=== PATIENT | male | born 1985 | race Caucasian/White ===

== ENCOUNTER 2024-10-02 11:14 | Day surgery (SDC) | payer MEDICAID, SELFPAY ==
[2024-10-02] VITALS (11 sets, daily range): BP systolic 108–156; BP diastolic 70–95; PULSE 60–90; RESP 14–18; TEMP 36.3–36.5; O2SAT 93–100; BMI 34.2
--- NOTE | 2024-10-02 11:36 | EKG12_ITS ---
Test Reason : PREOP Blood Pressure : */* mmHG Vent. Rate : 56 BPM Atrial Rate : 56 BPM P-R Int : 176 ms QRS Dur : 116 ms QT Int : 430 ms P-R-T Axes : 39 54 51 degrees QTcB Int : 414 ms Sinus bradycardia Otherwise normal ECG No previous ECGs available Confirmed by Cedric Schilling ([id number]), book or script editor ARIES MARTIN ([id number]) on 10/08/2024 8:11:16 AM Referred By: Adriano Mike Confirmed By: Cedric Schilling
[2024-10-02] MEDS: Lactated Ringers 1,000 ML 15 ML IV (12:30)
--- NOTE | 2024-10-02 12:37 | PCM.HP.STD ---
HPI - General HPI Narrative PARIS ZHAO, is a 39 M who presents for left knee anterior cruciate ligament reconstruction quadriceps tendon autograft, medial meniscus repair possible partial meniscectomy. No changes to history and physical exam. Left knee marked. Risks alternatives benefits as well as postoperative instructions and narcotic counseling given. The patient understands no further questions and wishes to proceed. MR#: [id number] Acct: [id number] Name: PARIS ZHAO Rep #: [id number] : 1985 Provider: Dr. Adriano Mike MD Age/Sex: 38/M Location: [facility] [place] Status: Signed Intake Vital Signs 08/26/2513:18 Height 6 ft 3 in Weight: 290 lb BMI 36.2 Intake Visit Reasons: RIGHT KNEE Chief Complaint: Left knee pain Accompanied by: Self Is patient in pain?: Yes Pain scale (1-10): 7 Allergies No Known Allergies Allergy (Unverified 08/26/24 14:21) Medications ?Medication ?Instructions ?Recorded ?Confirmed ?Type NK 08/26/24 08/26/24 History Have you fallen in the past year?: Yes [facility] Medical History (Updated 08/26/24 @ 14:47 by Adriano Mike MD) MCL sprain of left knee Effusion, left knee Tear of medial meniscus of left knee Left ACL tear Left knee pain Right knee pain Family History Mother No problems noted. Father No problems noted. Grandmother No problems noted. Grandfather No problems noted. Social History Smoking Status: Never smoker alcohol intake: never HPI RIGHT KNEE Details: This documentation accurately reflects the service provided and the decisions made by me, Dr. Adriano Mike MD 08/26/24 [id number]. Part of today?s visit was documented by [ ], acting as scribe. PARIS ZHAO is a 38 year old M here today for left knee pain. Referred for meniscus tear. a week-two weeks ago carrying a fish tank twisted the knee. using a brace. not a work injury. 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 up and off the ground, sitting kneeling into cars. feels unstable. swells right away, multiple pops. Supplemental Info Left (report states right though) knee MRI demonstrates complete ACL tear. longitudinal tear in the peripheral one third of the posterior horn of the medial meniscus grade 2-3 sprain MCL. small subchondral fracture medial tibia plateau posteriorly. large joint effusion. Pending the actual report this was taken from [facility]. Review of the MRI scanned into PACS. I independently reviewed the imaging. Concur with radiologist report. Coding Level of Care Code Off vis,new,level 4 Diagnoses Left knee pain M25.562 Left ACL tear S83.512A Tear of medial meniscus of left knee S83.242A Effusion, left knee M25.462 MCL sprain of left knee S83.412A Assessment and Plan Assessment and Plan (1) Left knee pain: Status: Acute Plan: 38-year-old man with an acute left ACL tear and medial meniscus tear. The patient also has a moderate grade sprain of the MCL at the proximal origin these tend to heal well with nonoperative management. That being said I went over the pros and cons risks and benefits of both conservative management nonoperative care versus surgical reconstruction. The patient wished to go ahead with surgery the patient is relatively young with good cartilage as well as physically demanding job. Without surgery the patient would likely have knee instability and high risk for long-term osteoarthritis damage to cartilage and further meniscus tears and injuries. Patient understands wishes to go ahead with surgery in the form of left knee anterior cruciate ligament reconstruction quadriceps tendon autograft, medial meniscus repair possible partial meniscectomy. Specific risks of surgery like repeat tear 5% fractures damage to other intra-articular structures VTE from time on crutches with the brace 6 weeks after surgery and other risks. He understands the risks wishes to proceed signed the form for today we will try to get this on as soon as possible. Full recovery before going back to pivoting and twisting and other very difficult demanding things on the knee would be 9 months. Pros and cons risks and benefits were discussed with the patient including but not limited to infection, pain, stiffness, bleeding, damage to surrounding structures, neurovascular injury, recurrence or retear, failure or wear of hardware or fixation, instability, fracture, deep vein thrombosis and pulmonary embolism, anesthetic risks, , patient dissatisfaction, need for further surgery and other risks. Patient understood and wished to proceed with surgery, and signed the informed consent documentation. (2) Left ACL tear: Status: Acute (3) Tear of medial meniscus of left knee: Status: Acute (4) Effusion, left knee: Status: Acute (5) MCL sprain of left knee: Status: Acute Clinical Quality Measures Falls Risk Screening/Assistive Devices Have you fallen in the past year?: Yes Ortho Exam General General: Yes no acute distress Neurologic: Yes alert and Yes oriented x3 Psychologic: Yes reasonable and appropriate Right Knee Skin/Wound: Yes CDI, No erythema, No ecchymosis and Yes swelling 1+: Effusion Examination: Yes Med jt line tenderness, No Lat jt line tenderness, No TTP inf pole patella, No Crepitus, Yes Pain with flexion, Yes Juan's Test, No TTP Patellar tendon, No TTP Tibial tubercle, No TTP Pes Anserine and No Illiotibial band tenderness Quad Atrophy: No Stability: NML: Posterior Drawer, NML: Valgus 0, NML: Varus 0 and NML: Varus 30, 1+: Frandy and 1+: Valgus 30 and 2+: Anterior Drawer Patella Translation: 2 Apprehension with Lateral Translation: No Patellar Tilt Normal: Yes Patella Grind: No KNEE: NVI, antalgic gait, normal alignment, rom 0-50, refuses further. able to SLR. Left Knee Patella Translation: 2 PFSH Medical History (Updated 09/18/24 @ 10:32 by Niki Guidry) Wears contact lenses Wears glasses Uses crutches Vapes nicotine containing substance Shortness of breath on exertion History of pain when walking History of edema Hx of urethral stricture MCL sprain of left knee Effusion, left knee Tear of medial meniscus of left knee Left ACL tear Left knee pain Right knee pain Home Medications ?Medication ?Instructions ?Recorded ?Last Taken ?Type tirzepatide (weight loss) 5 mg/0.5 5 mg subcut SA 09/18/24 09/25/24 History mL subcutaneous pen injector (Zepbound) Allergy/AdvReac Type Severity Reaction Status Date / Time No Known Allergies Allergy Verified 09/18/24 10:21 Family History Mother No problems noted. Father No problems noted. Grandmother No problems noted. Grandfather No problems noted. Social History Smoking Status: Never smoker alcohol intake: never Vital Signs Vital Signs Vital Signs: 10/02/24 12:15 10/02/24 12:16 Temperature 97.3 F L Temperature Source Temporal Pulse Rate 60 Respiratory Rate 18 Respiratory Pattern Normal Blood Pressure 108/70 Blood Pressure Mean 82 Blood Pressure Source Monitor Blood Pressure Position Semi-Fowlers Blood Pressure Location Right Arm Pulse Ox 100 Oxygen Delivery Method Room Air Weight Weight: 274 lb 6.4 oz Body Mass Index (BMI) 34.2 Results Lab / Micro Data 10/02/24 12:29
--- NOTE | 2024-10-02 12:50 | PCM.PRE.AN2 ---
ASA Classification* ASA Classification ASA Classification: 1 Assessment & Plan Anesthesia* Anesthesia Assessment Anesthesia Assessment: Discussed sedation and/or anesthesia options, risks, benefits, and alternatives with patient/parents/legal guardian/POA. Questions invited. The patient/parents/legal guardian/POA seems to understand and agrees to proceed with anesthesia plan. Reviewed the physical assessment, medical history, allergy history and patient home medications list prior to surgery/procedure/anesthetic and documented any changes. Performed airway and anesthesia risk assessments. Anesthesia Type Anesthesia Type: General and Block (Femoral and Popliteal) History Source History Obtained from:: Patient and Chart Anesthesia Focused Assessment* Temperature: 97.3 F Pulse Rate: 60 Blood Pressure: 108/70 Respiratory Rate: 18 Pulse Ox: 100 Oxygen Delivery Method: Room Air Airway Assessment Mouth opens: >3 cm Mallampati Score: II Teeth Condition: Intact Neck Range of motion (ROM): Full ROM Focused Labs Anesthesia Preop lab: CBC WBC Pending 10/02/24 12:29 10/02/24 RBC Pending 10/02/24 12:29 10/02/24 Hgb Pending 10/02/24 12:29 10/02/24 Hct Pending 10/02/24 12:29 10/02/24 Plt Count Pending 10/02/24 12:29 10/02/24 CHEMISTRY COAG Pre-Assessment Diagnosis/Proposed Procedure Planned Operative Procedure(s): LEFT KNEE ARTHROSCOPY ACL RECONSTRUCTION QUADRICEP TENDON AUTOGRAFT MEDIAL MENISCUS REPAIR POSS PARTIAL MENISECTOMY Anesthesia History 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 When Was Last Pacemaker Check QUESTION #4 FULL TEXT: You/Your Family Experience fever (hyperthermia) with Anesthesia Last Oral Intake Last Oral intake: Last Oral Intake NPO since 07:00 10/02/24 12:16 Meds taken in AM with sips of No 10/02/24 12:16 water? Meds patient instructed to take am of surgery PONV PONV - repair department manager: PONV - repair department manager Female No 09/18/24 10:25 HX of Motion Sickness No 09/18/24 10:25 HX of N/V After Surgery No 09/18/24 10:25 Non-Smoker No 09/18/24 10:25 Duration of Surgery greater Yes 09/18/24 10:25 than 60 minutes Number of Risk Factors 1 09/18/24 10:25 PONV Score Low Risk 09/18/24 10:25 Height & Weight Height & Weight: Anesthesia: Height & Weight Height 6 ft 3 in 10/02/24 12:16 Weight: 124.466 kg 10/02/24 12:16 Body Mass Index (BMI) 34.2 10/02/24 12:16 Respiratory Assessment Respiratory Assessment - repair department manager: Respiratory Tract Infection Hx - repair department manager Hx Respiratory Tract Infection No 09/18/24 10:25 STOP Sleep Apnea STOP Sleep Apnea - repair department manager: STOP Sleep Apnea - repair department manager Hx Hypertension No 09/18/24 10:25 Hx Sleep Apnea No 09/18/24 10:25 CPAP BIPAP Do you snore loudly (louder Yes 09/18/24 10:25 than talking or can be heard Do you often feel tired/ No 09/18/24 10:25 fatigued/ sleepy during daytime? Has anyone observed you stop No 09/18/24 10:25 breathing during sleep? STOP Results Negative 09/18/24 10:25 QUESTION #5 FULL TEXT : Do you snore loudly (louder than talking or can be heard through closed doors)? Tobacco Use History Tobacco Use History - repair department manager: Tobacco Use History - repair department manager Tobacco Use Smoking Status Current every day smoker 09/18/24 10:25 Hx Tobacco Use Yes 09/18/24 10:25 Years Smoking Packs Smoked per Day Smoking Cessation Date was within the last 15 years Hx Smoking Cessation Date Hx Smoking Cessation Counseling Hematologic Medial History Hematologic Hx - repair department manager: Hematologic Medical Hx - event manager Hx of Blood Transfusion No 09/18/24 10:25 Hx of Transfusion in last 3 No 09/18/24 10:25 Months Date of Last Transfusion (if within last 3 months) Ever experience any problems No 09/18/24 10:25 with transfusion(s)? Specify any problems Hx of Preganancy in last 3 N/A 09/18/24 10:25 Months Nurse Filling Out Transfusion DSCHRIBER 09/18/24 10:25 & Questions: Date: 09/18/24 09/18/24 10:25 Time: 10:27 09/18/24 10:25 Patient unable to answer at this time (ie. confused, unrespo /Reproduction History /Reproductive History - repair department manager: /Reproductive Hx- repair department manager Hx Now No 09/18/24 10:25 Gestational Age (in weeks): EDC: Hx Hx Para Hx Section SAB No 09/18/24 10:25 Active Medications Active Medications: Current Medications Generic Name Dose Route Start Last Admin Trade Name Freq PRN Reason Stop Dose Admin Cefazolin Sodium 3 gm/ Sodium 115 mls @ 150 mls/hr 10/02/24 13:20 Chloride IV 10/02/24 14:05 INTRAOP ONE Lactated Ringer's 1,000 mls @ 15 mls/hr 10/02/24 11:45 10/02/24 12:30 IV 15 mls/hr .Q48H MICA Administration PFSH Medical History (Updated 09/18/24 @ 10:32 by Niki Guidry) Wears contact lenses Wears glasses Uses crutches Vapes nicotine containing substance Shortness of breath on exertion History of pain when walking History of edema Hx of urethral stricture MCL sprain of left knee Effusion, left knee Tear of medial meniscus of left knee Left ACL tear Left knee pain Right knee pain Home Medications ?Medication ?Instructions ?Recorded ?Last Taken ?Type tirzepatide (weight loss) 5 mg/0.5 5 mg subcut SA 09/18/24 09/25/24 History mL subcutaneous pen injector (Zepbound) Allergy/AdvReac Type Severity Reaction Status Date / Time No Known Allergies Allergy Verified 09/18/24 10:21 Family History Mother No problems noted. Father No problems noted. Grandmother No problems noted. Grandfather No problems noted. Social History Smoking Status: Never smoker alcohol intake: never Review of Systems (Anesthesia) ROS Narrative System reviewed and no additional complaints, except as documented.
[2024-10-02 12:58] LABS: Hemoglobin 16.6 g/dL (13.0-16.5); Mean Corp Hgb Conc 33.9 g/dL (32-36); Mean Corpuscular Hgb 28.9 pg (27.0-32.0); Mean Corpuscular Volume 85.2 fL (80-94); Mean Platelet Vol. 9.4 fl (6.2-12.0); Platelet Count 211 K/mm3 (150-450); RBC Distribution Width CV 13.2 % (11.6-14.6); RBC Distribution Width SD 41.1 fl (35.1-43.9); Red Blood Count 5.75 M/mm3 (4.6-6.2); White Blood Count 5.4 K/mm3 (4.4-11.0)
[2024-10-02] MEDS: Cefazolin 3 GM in 0.9% Normal Saline (100mL Bag) 100 ML IV (13:28)
[2024-10-02] MEDS: Epinephrine (1 mg/ml) 1 MG/ML VIAL (13:46)
--- NOTE | 2024-10-02 16:02 | OP.PCM_ITS ---
Problems Associated Problem List Diagnoses (1) Tear of medial meniscus of left knee: (2) Left ACL tear: (3) Tear of lateral meniscus of left knee: Procedures Musculoskeletal [id number]: Other Procedure See Report Operative Report (Standard) Operative Information Date of Procedure: 10/02/24 Pre-Operative Diagnosis: Left knee ACL tear and medial meniscus tear Post-Operative Diagnosis: left knee ACL tear medial meniscus tear and lateral meniscus tear Surgery/Procedure Performed: Left knee arthroscopy, quadriceps tendon autograft ACL reconstruction, medial meniscus repair and lateral meniscus repair certified medical dosimetrist: Yes Security Inspector: delia Tasks completed by medical assistant: Retracting Additional assistant infant toddler teacher?: No Type of Anesthesia: Block,Regional and General RN Documented Start/Stop Times: Operation Date: 10/02/24 13:20 Case Time Into Pre-Op 10/02/24 11:35 Anesthesia Start 10/02/24 13:28 Into Room 10/02/24 13:28 Out of Pre-Op 10/02/24 13:28 Procedure Start 10/02/24 13:53 Procedure End 10/02/24 15:55 Procedure Start Time: 13:53 Procedure Stop Time: 15:55 Select all DRAINS/GRAFTS/IMPLANTS that apply: Implanted device Implanted device details: Arthrex 4.75 bio composite swivel lock anchor, fiber stitch implants x 6 Estimated Blood Loss: 50 Specimen collected: No Description of surgery: Patient brought to the operating room theater. Placed supine on the table. 2 g IV Ancef administered prior to the start of the case. General anesthesia induced. All bony prominences padded. SCD on the nonoperative leg. Tourniquet applied to the left thigh appropriately padded. Stress positioner to the left lower extremity. Lower extremity prepped and draped in the usual sterile fashion allowing over 3 minutes drying time prior to draping. Preoperative timeout performed to performed to confirm the site patient the surgery. Examination under anesthetic revealed full range of motion no hyperextension 2+ pivot shift and 2B Frandy. MCL stable. Began by elevating the limb and inflating the tourniquet to 250 mmHg. Use standard anterolateral and anteromedial arthroscopy portals. Did a full diagnostic arthroscopy. Cartilage all 3 compartments was normal, aside from a partial thickness [id number] lesion LFC. Lateral meniscus had small vertical tear near the posterior horn. Used a rasp to stimulate healing. Used 2 arthrex fiber stitch all inside implants vertical mattress to fix the tear. Stable afterwards. Normal roots. Medial meniscus had combined injury vertical tear 1.5cm and another vertical tear along the capsule - a ramp lesion. Used a rasp to stimulate healing. Used 4 fiberstitch all inside implants in vertical mattress fashion to fixate the tear. Stable afterwards. PCL appeared normal. There was an empty lateral wall sign with a full- thickness proximal ACL tear. Removed and debrided the remaining ACL stump. Identified the back wall. Arthroscope was withdrawn. Next I made a transverse incision at the distal quadriceps tendon insertion carried the dissection down through skin and subcutaneous tissue achieved meticulous hemostasis. Identified the vastus medialis stayed lateral to this. I harvested a 7 cm long by 9 mm central strip of the quadriceps tendon staying extra-articular using the Arthrex quad pro harvesting device. I opposed to the 2 sides of the quadriceps using the included arthrex stitch from the kit, fiberwire. Graft taken to the back table. I used the Arthrex all inside with the button system using the fiber tape in the typical fashion with the locking sutures and then buried the stitch on both ends. Fibertape included for internal brace. This measured 9 mm on the femur and 9.5 mm on the tibia. Graft was placed on tension with covered with a wet sponge. I then turned my attention back to the knee arthroscope was then placed. The passport cannula placed in the medial portal. I then drilled a 3 cm long tunnel retrograde low and posterior on the femoral side. Ensured a good backwall. Ensured good lateral cortex still intact - the total length was 5 cm and I drilled retrograde at 9 mm to 3 cm long tunnel. I then performed the same operation on the tibial side with retrograde drilling the total length of the tunnel was 5 cm so I drilled retrograde 3 cm length with 9.5 mm diameter on the tibial side all bone dust was cleared away. I passed the sutures passing sutures through both tunnels and through the passport cannula. I then passed the femoral side sutures with the tape coming back down through the tibial side with the tensioning sutures through the tibial tunnel as well. Button was flipped graft tensioned 2.5 cm into the femoral tunnel button affixed to the tibial tight rope adjustable button loop system and the sutures again tensioned down on both sides sequential tension was performed on both sides. Prior to fixing the tibial button on the tibial side I did 15 cycles of flexion and extension of the knee. Graft was fixated in full extension and ensure no impingement in extension. I did a little bit of lateral notchplasty as well before passing the graft. Graft was stable and solid eliminating the Frandy and pivot shift for full range of motion. I then affixed without tension the internal brace to a Arthrex 4.75 mm swivel lock anchor just distal to the tibial tunnel, ensuring not to over tension the internal brace sutures. Tourniquet let down meticulous hemostasis achieved wound thoroughly irrigated the subcutaneous tissue closed with 2-0 Vicryl suture and skin with 3-0 Monocryl. Skin cleaned with wet dry dressing followed application of Steri- Strips Adaptic 4 x 4 gauze ABD dressing and Matt wrap . Patient woken up from the general anesthetic transferred off the operating table taken postanesthetic care unit in stable condition. All sponge needle instrument counts were correct patient to be on crutches for 2 weeks time follow-up in the office in 2 days and gentle range of motion and partial weightbearing, brace in full extension and crutches. cpt [id number], [id number] Surgical Findings: As above Complications Complications: No Admit VTE Documentation VTE Present on Admission: No VTE Mechan Device Prophylaxis: SCD's VTE Pharm Prophylaxis ordered?: Yes
--- NOTE | 2024-10-02 16:10 | EX.PCM.DISCH ---
Discharge Instructions Diet Discharge Diet: No restrictions Activity Discharge Activity: Use Crutches Ice area for (Minutes): 10 Lifting Restrictions: partial WB with leg straight in brace. Keep extremity elevated above heart level: Operative Extremity Dressing / Incision Call your doctor if your incision/area has: Continuous Slow Oozing, Sudden Increased Bleeding, Increased Pain/ Swelling, Increased Redness, Foul Smelling Discharge and Swelling at the incision site Call your doctor if you observe: Fever of 101 or Higher, Coldness, Increased Pain and Numbness or Tingling Change Dressing in: leave in place till F/U Cleanse incision/area with: Do not get Incision Wet Follow Up Care Please Follow Up With: Adriano Mike MD When: within 2 weeks Test Results: Test results from this visit will be discussed in further detail at your follow-up appointment, if applicable. Discharge Plan Admission Attending Provider: Adriano Mike Primary Care Provider: Care Physician,Radha Primary Instructions Patient Instructions: ACL Injury Surg Print Language: Slovenian Discharge Orders/Prescriptions Prescriptions: New oxycodone-acetaminophen [Endocet] 5-325 mg tablet 1 tab PO Q4H MDD 6 PRN (Reason: pain) 4 Days Qty: 20 0RF aspirin 81 mg capsule 81 mg PO BID MDD 2 30 Days Qty: 60 0RF No Action Zepbound 5 mg/0.5 mL pen injector 5 mg subcut SA Referrals / Follow Up: Adriano Mike MD [Med Staff - Active Staff] - Disposition Disposition (needs filled in before D/C Order can be placed): Home, Self Care
--- NOTE | 2024-10-02 16:14 | PCM.POST.ANE ---
Anesthesia: Postop Eval I Current Vital Signs Temperature: 97.3 F Pulse Rate: 90 Blood Pressure: 119/95 Respiratory Rate: 16 Pulse Ox: 94 Assessment Airway patent: Yes Spontaneous unlabored respirations: Yes nausea: No Vomiting: No Anesthesia Complication: No Fluid Hydration Crystalloid volume administer (ml): 1,200 Total IV fluid infused: 1,200 Progress Note Anesthesia document: Postop Eval 1 completed: Yes
--- NOTE | 2024-10-02 20:46 | POSTOPAN2_ITS ---
Anesthesia Postop Eval I Sum Postop Eval Completion status Anesthesia document: Postop Eval 1 completed: Yes Anesthesia Postop Eval I Summary Anesthesia Postop Eval I Summary: Anesthesia Postop Eval I: Assessment Summary Airway patent Yes 10/02/24 16:14 TELETYPESETTER MONITOR.TNES Spontaneous unlabored Yes 10/02/24 16:14 TELETYPESETTER MONITOR.TNES respirations Mental status nausea No 10/02/24 16:14 TELETYPESETTER MONITOR.TNES Vomiting No 10/02/24 16:14 TELETYPESETTER MONITOR.TNES Anesthesia Postop Eval I: Fluid Summary Crystalloid volume administer 1,200 10/02/24 16:14 TELETYPESETTER MONITOR.TNES (ml) Colloids volume administered ( ml) Blood Product volume administered (ml) Total IV fluid infused 1,200 10/02/24 16:14 TELETYPESETTER MONITOR.TNES Anesthesia Postop Eval I: Summary Notes Anesthesia Complication No 10/02/24 16:14 TELETYPESETTER MONITOR.TNES Anesthesia Complication Comment: Post-operative progress note Anesthesia: Postop Eval II Evaluation Mental status: Awake and Calm Pain Level: 2 nausea: No Vomiting: No Complications Anesthesia Complication: No
--- NOTE | 2024-10-02 20:46 | PCM.POSTANE2 ---
Anesthesia Postop Eval I Sum Postop Eval Completion status Anesthesia document: Postop Eval 1 completed: Yes Anesthesia Postop Eval I Summary Anesthesia Postop Eval I Summary: Anesthesia Postop Eval I: Assessment Summary Airway patent Yes 10/02/24 16:14 [email or web address] Spontaneous unlabored Yes 10/02/24 16:14 [email or web address] respirations Mental status nausea No 10/02/24 16:14 [email or web address] Vomiting No 10/02/24 16:14 [email or web address] Anesthesia Postop Eval I: Fluid Summary Crystalloid volume administer 1,200 10/02/24 16:14 [email or web address] (ml) Colloids volume administered ( ml) Blood Product volume administered (ml) Total IV fluid infused 1,200 10/02/24 16:14 [email or web address] Anesthesia Postop Eval I: Summary Notes Anesthesia Complication No 10/02/24 16:14 [email or web address] Anesthesia Complication Comment: Post-operative progress note Anesthesia: Postop Eval II Evaluation Mental status: Awake and Calm Pain Level: 2 nausea: No Vomiting: No Complications Anesthesia Complication: No
== END 2024-10-02 18:02 | disposition home or self-care (01) ==
LOC: SDC 11:18 → AC 11:21
PROVIDERS: Anesthesiology; Referring Provider Orthopaedic Surgery Sports Medicine; Visit Provider Orthopaedic Surgery Sports Medicine
PROC: (CPT 29888; principal; 2024-10-02 13:00)
DX: S83.242A Other tear of medial meniscus, current injury, left knee, initial encounter (principal); S83.512A Sprain of anterior cruciate ligament of left knee, initial encounter; S83.282A Other tear of lateral meniscus, current injury, left knee, initial encounter; M25.462 Effusion, left knee; X58.XXXA Exposure to other specified factors, initial encounter
CPT/HCPCS: 29888; 29883; 64450; 01400; 85027; 93005; C1713; J2405

== ENCOUNTER → 2025-01-09 | Outpatient (CLI) | payer MEDICAID, SELFPAY ==
--- NOTE | 2025-01-09 15:20 | MRI_ITS ---
PROCEDURE: LOWER EXT JOINT ONLY (ROUTINE) 01/09/2025 REASON FOR EXAM: PRIOR ACL, MM AND LM REPAIR, EVAL REPAIR TECHNIQUE: Procedure Code: MRILEJ Modality: MR Procedure: LOWER EXT JOINT ONLY (ROUTINE) Multiplanar and multisequence images were obtained without IV contrast administration. COMPARISON: COMPARISON : FINDINGS: Postsurgical changes of an ACL repair with an intact graft. A trace amount of fluid surrounds the bone graft plugs in the distal femur and proximal tibia,, potentially representing loosening. Please correlate clinically. The PCL is intact. A horizontal linear signal propagates through the posterior horn of the medial meniscus, which extends to the root (coronal T2 fat suppressed image 24), concerning for a tear. A very small tear reaching the superior articular surface is noted in the posterior horn of the medial meniscus (sagittal proton density images 19 and 20). The lateral meniscus appears intact. Thickening of the MCL, with internal striations of high signal and moderate adjacent fluid signal. This is concerning for a high-grade sprain and possibly partial tearing (grade 2 injury). The LCL complex is intact. The patella appears unremarkable. The medial and lateral patellar retinaculum are intact. The visualized distal quadriceps and patellar tendons appear intact. A very large suprapatellar joint effusion is present. Moderate-sized Villalba's cyst. Chondromalacia and thinning of articular cartilage is noted in the medial and lateral compartments. No MR evidence of a bone contusion. No fracture. Mild subcutaneous edema anterior to the patella and patellar tendon. MRI/Lower Ext Joint Only (Routine) IMPRESSION: 1. Postsurgical changes of an ACL repair with an intact graft. Trace fluid si gnal surrounds the bone graft plugs in the distal femur and proximal tibia, potentially representing loosening. Please correlate clinically. 2. Medial meniscal tears, as described above. 3. Thickening of the MCL with internal striations of high signal and moderate adjacent fluid signal, concerning for a high-grade sprain and possible partial tearing (grade 2 injury). 4. Degenerative changes affecting the articular cartilage in the medial and la teral compartments. 5. Very large suprapatellar joint effusion. Moderate-sized Villalba's cyst. Reading Location: [id number]
--- OUTSIDE RECORDS SUMMARY | 2025-01-09 21:27 | XMS RPT_ITS | CCD ---
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 Interference will decrease T -score by a minimum of 5 points. [place] in home exercise program. Patient will decrease pain rating by 2 points to meet minimal clinical important difference for numeric pain rating scale. Patient will increase active ROM of left knee to 0 to 120 degrees to allow pt to to improve performance of ADLs and to improve gait mechanics / gait pattern . Patient will demonstrate increase in right lower extremity strength to 5/5 during manual muscle testing in order to improve function for prior functional tasks. Normal gait. Reciprocal stair negotiation. Patient Goals: be normal Time Frame for Goals and Treatment : 01/01/25 Planned Interventions, Frequency, and Duration: Current Frequency: 2x/week Duration: 10 weeks Total Number of Visits Planned: 20 Planned Treatment Interventions: Therapeutic exercise (10153), Neuromuscular re-education (43480), Manual therapy (84047), Therapeutic activities (87096), Gait Training (66770), Self-long term management (42884), E-Stim Unattended (88117), E-Stim Attended/TENS (84387), Vasopneumatic Treatment (64298) PLAN FOR NEXT VISIT: HEP review and follow post op protocol Patient demonstrates good understanding of plan of care and treatment. The above goals and plan of care were discussed and agreed upon by patient/family. For further details regarding this patient refer to the Physical Therapy electronically documented visit dated 10/23/2024. Provider Attestation I have reviewed the treatment plan for Paris Ramirez, [facility]# [id number] for the period of 10/23/24 -- 01/01/25, established on 10/23/2024. Signature certifies the need for therapy services. [facility] CNTHERAPYon 10-23-2024 CNTHERAPY OT/PT/Speech Visit (PTMERC) PARIS RAMIREZ ([id number]) 1985 Date Time Provider Department 10/23/24 1:30 PM LUDA DUNBAR PTMERC Date Time Provider Department Center 10/23/2024 1:30 PM [id number], BRITTA*[facility] Reason for Visit: PT Eval [747] Primary Visit Diagnosis:S/P ACL reconstruction [Z98.890] Allergies As of Date: 10/23/2024 (No Known Allergies) Date Reviewed: 08/22/2024 Reviewed by: Dinorah Youngblood ST - Fully Assessed Labelling Machine Operator: Addendum Therapy (PT/OT/Speech/Resp) ID: [id number] 10/23/2024 2:14 PM Author: LUDA DUNBAR Signed by LUDA DUNBAR PT, DPT on 10/23/2024 at 2:14 PM * * * This document replaces document [id number] * * * Document text: Program_ID:[id number] Access Code: [email or web address] URL: [email or web address] Date: 10-23-2024 Prepared By: LUDA DUNBAR Program Notes Exercises - Long Sitting Quad Set - 2 x daily - 7 x weekly - 3 sets - 10 reps - Active Straight Leg Raise with Quad Set - 2 x daily - 7 x weekly - 3 sets - 10 reps - Supine Heel Slide with Strap - 1 x daily - 7 x weekly - 3 sets - 10 reps - Sidelying Hip Abduction - 2 x daily - 7 x weekly - 3 sets - 10 reps - Standing Heel Raises - 2 x daily - 7 x weekly - 3 sets - 10 reps Patient Education - ACL Tear -------- Letter Text Letter Text [facility] THERAPY NTon 10-23-2024 THERAPY NT HNO ID: [id number] Author: LUDA DUNBAR, PT, DPT Service: ? Author Type: Physical Therapist Type: Therapy (PT/OT/Speech/Resp) Filed: 10/23/2024 14:14 Note Text: Program_ID:[id number] Access Code: [email or web address] URL: [email or web address] Date: 10-23-2024 Prepared By: LUDA DUNBAR Program Notes Exercises - Long Sitting Quad Set - 2 x daily - 7 x weekly - 3 sets - 10 reps - Active Straight Leg Raise with Quad Set - 2 x daily - 7 x weekly - 3 sets - 10 reps - Supine Heel Slide with Strap - 1 x daily - 7 x weekly - 3 sets - 10 reps - Sidelying Hip Abduction - 2 x daily - 7 x weekly - 3 sets - 10 reps - Standing Heel Raises - 2 x daily - 7 x weekly - 3 sets - 10 reps Patient Education - ACL Tear [facility] Orthopedic Visit Reporton Orthopedic Visit Report [facility] [address] [place] [address] OFFICE VISIT Date of Service: 10/15/24 MR#: [id number] Acct: [id number] Name: PARIS RAMIREZ Rep #: [id number] : 1985 Provider: Dr. Adriano naranjo MD Age/Sex: 39/M Location: [facility] Status: Signed Intake Vital Signs 08/26/24 14:18 10/02/24 12:16 Height 6 ft 3 in 6 ft 3 in Intake Visit Reasons: left knee Chief Complaint: Left knee pain Is patient in pain?: Yes Allergies No Known Allergies Allergy (Verified 10/15/24 13:05) Medications ???Medication ???Instructions ???Recorded ???Confirmed ???Type tirzepatide (weight loss) 5 mg/0.5 5 mg subcut SA 09/18/24 10/15/24 History mL subcutaneous pen injector (Zepbound) aspirin 81 mg capsule 81 mg PO BID vte 1 month #60 caps 10/02/24 10/15/24 Rx cyclobenzaprine 5 mg tablet 5 - 10 mg (1 - 2 x 5 mg) PO TID 10/15/24 Rx PRN muscle spasm 5 days #20 tabs PFSH Medical History (Updated 10/02/24 @ 16:02 by Adriano Granados MD) Tear of lateral meniscus of left knee Wears contact lenses Wears glasses Uses crutches Vapes nicotine containing substance Shortness of breath on exertion History of pain when walking History of edema Hx of urethral stricture MCL sprain of left knee Effusion, left knee Tear of medial meniscus of left knee Left ACL tear Left knee pain Right knee pain Family History Mother No problems noted. Father No problems noted. Grandmother No problems noted. Grandfather No problems noted. Social History Smoking Status: Never smoker alcohol intake: never HPI left knee Details: This documentation accurately reflects the service provided and the decisions made by me, Dr. Adriano Granados MD 10/15/24 0952. Part of today???s visit was documented by [ ], acting as scribe. PARIS RAMIREZ is a 39 year old M here today for 2 wks FU Left knee arthroscopy, quadriceps tendon autograft ACL reconstruction, medial meniscus repair and lateral meniscus repair. Doing well have t he PT referral faxed today. No concerns. Has weaned off the crutches removed the dressings. No acute concerns. Coding Level of Care Code Global Post Op Diagnoses Tear of lateral meniscus of left knee S83.282A MCL sprain of left knee S83.412A Tear of medial meniscus of left knee S83.242A Left ACL tear S83.512A Left knee pain M25.562 Assessment and Plan Assessment and Plan (1) Tear of lateral meniscus of left knee: Status: Acute Plan: PARIS RAMIREZ is a 39 year old M here today for 2 wks FU Left knee arthroscopy, quadriceps tendon autograft ACL reconstruction, medial meniscus repair and lateral meniscus repair. Doing well we went over the protocol again partial weightbearing in full extension range of motion 0 to 90 degrees passively. Okay to shower over top of the incisions. FU 4 weeks. (2) MCL sprain of left knee: Status: Acute (3) Tear of medial meniscus of left knee: Status: Acute (4) Left ACL tear: Status: Acute (5) Left knee pain: Status: Acute Ortho Exam General General: Yes no acute distress Neurologic: Yes alert and Yes oriented x3 Psychologic: Yes reasonable and appropriate Left Knee Skin/Wound: Yes CDI, No ecchymosis, No erythema and No swelling KNEE: nvi, rom 0-90, intermittent numbness to tips of toes and medial foot non dermatomal and goes away with position 10/15/24 1316 Date Adriano Herrmann Signature: Date (if applicable) CC: Normal [facility] 12 Lead EKContreras 10-02-2024 12 Lead EKG [facility] [address] [place] [address] 12 Lead EKG 10/02/24 1155 MR#: [id number] Acct: [id number] Name: PARIS RAMIREZ Rep #: [id number] : 1985 39 From: Macho Schilling MD Attending Dr: Dr. Adriano Granados MD Status: DE P [facility] Ordering Dr: Wiliam Marie MD Date: 10/02/24 Location: [facility] Sex: M C Admitted: Test Reason : PREOP Blood Pressure : */* mmHG Vent. Rate : 56 BPM Atrial Rate : 56 BPM P-R Int : 176 ms QRS Dur : 116 ms QT Int : 430 ms P-R-T Axes : 39 54 51 degrees QTcB Int : 414 ms Sinus bradycardia Otherwise normal ECG No previous ECGs available Confirmed by Macho Schilling ([id number]), book editor ARIES MARTIN ([id number]) on 10/08/2024 8:11:16 AM Referred By: Adriano Granados Confirmed By: Macho Schilling 10/08/24 0811 Date Macho Schilling MD CC: Dr. Wiliam Marie MD; Dr. Adriano Granados MD; No Primary Care Physician Signed Normal [facility] CBC-Complete Blood Cnt No Di ffon 10-02-2024 Erythrocyte distribution width (RBC) [Ratio] 13.2 % Normal 11.6-14.6 [facility] Comment on above: Performed By: #### L 100.0500 #### [facility] [address] [place], [place], [id number] Hematocrit (Bld) [Volume fraction] 49.0 % Normal 40-54 [facility] Comment on above: Performed By: #### L 100.0500 #### [facility] [address] [place], [place], [id number] Hemoglobin (Bld) [Mass/Vol] 16.6 g/dL High 13.0-16.5 [facility] Comment on above: Performed By: #### L 100.0500 #### [facility] [address] [place], [id number] MCH (RBC) [Entitic mass] 28.9 pg Normal 27.0-32.0 [facility] Comment on above: Performed By: #### L 100.0500 #### [facility] [address] [place], [id number] MCHC (RBC) [Mass/Vol] 33.9 g/dL Normal 32-36 [facility] Comment on above: Performed By: #### L 100.0500 #### [facility] [address] [place], [id number] MCV (RBC) [Entitic vol] 85.2 fL Normal 80-94 [facility] Comment on above: Performed By: #### L 100.0500 #### [facility] [address] [place], [id number] Platelet mean volume (Bld) [Entitic vol] 9.4 fL Normal 6.2-12.0 [facility] Comment on above: Performed By: #### L 100.0500 #### [facility] [address] [place], [id number] Platelets (Bld) [#/Vol] 211 10*3/uL Normal 150-450 [facility] Comment on above: Performed By: #### L 100.0500 #### [facility] [address] [place], [id number] RBC (Bld) [#/Vol] 5.75 10*6/uL Normal 4.6-6.2 [facility] Comment on above: Performed By: #### L 100.0500 #### [facility] [address] [place], [id number] RDW SD 41.1 fl Normal 35.1-43.9 [facility] Comment on above: Performed By: #### L 100.0500 #### [facility] [address] [place], [address] WBC (Bld) [#/Vol] 5.4 10*3/uL Normal 4.4-11.0 [facility] Comment on above: Performed By: #### L 100.0500 #### [facility] [address] [place], [address] Discharge Instructionon 09-06 Discharge Instruction [facility] Medical Records Department [address] [place] [address] Instructions for Home/Discharge Instructions 10/02/24 1610 MR#: [id number] Acct: [id number] Name: PARIS RAMIREZ Rep #: [id number] : 1985 39 From: Adriano Granados MD PCP: Care Physician,No Primary Status:REG [facility] Discharge Instructions Diet Discharge Diet: No restrictions Activity Discharge Activity: Use Crutches Ice area for (Minutes): 10 Lifting Restrictions: partial WB with leg straight in brace. Keep extremity elevated above heart level: Operative Extremity Dressing / Incision Call your doctor if your incision/area has: Continuous Slow Oozing, Sudden Increased Bleeding, Increased Pain/ Swelling, Increased Redness, Foul Smelling Discharge and Swelling at the incision site Call your doctor if you observe: Fever of 101 or Higher, Coldness, Increased Pain and Numbness or Tingling Change Dressing in: leave in place till F/U Cleanse incision/area with: Do not get Incision Wet Follow Up Care Please Follow Up With: Adriano Granados MD When: within 2 weeks Test Results: Test results from this visit will be discussed in further detail at your follow-up appointment, if applicable. Discharge Plan Admission Attending Provider: Adriano Granados Primary Care Provider: Care Physician,No Primary Instructions Patient Instructions: ACL Injury Surg Print Language: Burkinan Discharge Orders/Prescriptions Prescriptions: New oxycodone-acetaminop hen [Endocet] 5-325 mg tablet 1 tab PO Q4H MDD 6 PRN (Reason: pain) 4 Days Qty: 20 0RF aspirin 81 mg capsule 81 mg PO BID MDD 2 30 Days Qty: 60 0RF No Action Zepbound 5 mg/0.5 mL pen injector 5 mg subcut SA Referrals / Follow Up: Adriano Granados MD [Med Staff - Active Staff] - Disposition Disposition (needs filled in before D/C Order can be placed): Home, Self Care 10/02/24 1613 Adriano Granados MD CC: No Primary Care Physician Signed Normal [facility] Erythrocyte distribution wid th ratioOrdered By: [facility] on 10-02-2024 Erythrocyte distribution width (RBC) [Ratio] 13.2 % 11.6-14.6 [facility] Erythrocyte distribution wid th standard deviationOrdered By: [facility] on 10-02-2024 Erythrocyte distribution width (RBC) [Ratio] 41.1 fl 35.1-43.9 [facility] Hematocrit Auto (Bld) [Volum e fraction]Ordered By: [facility] on 10-02-2024 Hematocrit (Bld) [Volume fraction] 49.0 % 40-54 [facility] Hemoglobin measurementOrdere d By: [facility] on 10-02-2024 Hemoglobin (Bld) [Mass/Vol] 16.6 g/dL High 13.0-16.5 [facility] MCV (mean corpuscular volume ) determinationOrdered By: [facility] on 10-02-2024 MCV (RBC) [Entitic vol] 85.2 fL 80-94 [facility] MR/POSTOP.ANEon 10-02-2024 MR/POSTOP.ANE [facility] Medical Records Department [address] [place] [address] Anesthesia Postop Eval I 10/02/24 1614 MR#: [id number] Acct: [id number] Name: PARIS RAMIREZ Rep #: [id number] : 1985 39 From: Mateo Hector CRNA PCP: Care Physician,No Primary Status:REG SDC Y Race: C Location: [place] [address] Anesthesia: Postop Eval I Current Vital Signs Temperature: 97.3 F Pulse Rate: 90 Blood Pressure: 119/95 Respiratory Rate: 16 Pulse Ox: 94 Assessment Airway patent: Yes Spontaneous unlabored respirations: Yes nausea: No Vomiting: No Anesthesia Complication: No Fluid Hydration Crystalloid volume administer (ml): 1,200 Total IV fluid infused: 1,200 Progress Note Anesthesia document: Postop Eval 1 completed: Yes 10/02/24 1615 Date Mateo Irizarrybitt SLAG EXPANDER Cosigner Signature: Date CC: Signed Normal [facility] MR/[id number] 10-02-2024 MR/POSTOPAN2 [facility] Medical Records Department [address] [place] [address] Anesthesia Postop Eval II 10/02/242045 MR#: [id number] Acct: [id number] Name: PARIS RAMIREZ Rep #: [id number] : 1985 39 From: Wiliam Marie MD PCP: Care Physician,No Primary Status:[facility] Y Race: C Location[place] [facility] Anesthesia Postop Eval I Sum Postop Eval Completion status Anesthesia document: Postop Eval 1 completed: Yes Anesthesia Postop Eval I Summary Anesthesia Postop Eval I Summary: Anesthesia Postop Eval I: Assessment Summary Airway patent Yes 10/02/24 16:14 SLAG [email or web address].TNES Spontaneous unlabored Yes 10/02/24 16:14 SLAG EXPANDER.TNES respirations Mental status nausea No 10/02/24 16:14 SLAG EXPANDER.TNES Vomiting No 10/02/24 16:14 SLAG EXPANDER.TNES Anesthesia Postop Eval I: Fluid Summary Crystalloid volume administer 1,200 10/02/24 16:14 SLAG EXPANDER.TNES (ml) Colloids volume administered ( ml) Blood Product volume administered (ml) Total IV fluid infused 1,200 10/02/24 16:14 SLAG [email or web address].TNES Anesthesia Postop Eval I: Summary Notes Anesthesia Complication No 10/02/24 16:14 SLAG [email or web address].TNES Anesthesia Complication Comment: Post-operative progress note Anesthesia: Postop Eval II Evaluation Mental status: Awake and Calm Pain Level: 2 nausea: No Vomiting: No Complications Anesthesia Complication: No 10/02/242046 Date Wiliam Marie MD Cosigner Signature: Date CC: Signed Normal [facility] Mean corpuscular hemoglobin (MCH) determinationOrdered By: Wiliam Marie on 10-02-2024 MCH (RBC) [Entitic mass] 28.9 pg 27.0-32.0 [facility] Mean corpuscular hemoglobin concentration (MCHC) determinationOrdered By: Wiliam Marie on 10-02-2024 MCHC (RBC) [Mass/Vol] 33.9 g/dL 32-36 [facility] Mean platelet volume determi nationOrdered By: Wiliam Marie on 10-02-2024 Platelet mean volume (Bld) [Entitic vol] 9.4 fL 6.2-12.0 [facility] Operative Reporton Operative Report [facility] Medical Records Department [address] [place] [address] Operative Report 10/02/24 1602 MR#: [id number] Acct: [id number] Name: PARIS RAMIREZ Rep #: [id number] : 1985 39 From: Adriano Granados MD PCP: Care Physician,No Primary Status:[facility] Location: [place] [address] Problems Associated Problem List Diagnoses (1) Tear of medial meniscus of left knee: (2) Left ACL tear: (3) Tear of lateral meniscus of left knee: Procedures Musculoskeletal 20xxx-29xxx: Other Procedure See Report Operative Report (Standard) Operative Information Date of Procedure: 10/02/24 Pre-Operative Diagnosis: Left knee ACL tear and medial meniscus tear Post-Operative Diagnosis: left knee ACL tear medial meniscus tear and lateral meniscus tear Surgery/Procedure Performed: Left knee arthroscopy, quadriceps tendon autograft ACL reconstruction, medial meniscus repair and lateral meniscus repair finisher machine: Yes Business Reporting Developer: delia Tasks completed by field assistant: Retracting Additional miller head assistant wet process?: No Type of Anesthesia: Block,Regional and General RN Documented Start/Stop Times: Operation Date: 10/02/24 13:20 Case Time Into Pre-Op 10/02/24 11:35 Anesthesia Start 10/02/24 13:28 Into Room 10/02/24 13:28 Out of Pre-Op 10/02/24 13:28 Procedure Start 10/02/24 13:53 Procedure End 10/02/24 15:55 Procedure Start Time: 13:53 Procedure Stop Time: 15:55 Select all DRAINS/GRAFTS/IMPLAN TS that apply: Implanted device Implanted device details: Arthrex 4.75 bio composite swivel lock anchor, fiber stitch implants x 6 Estimated Blood Loss: 50 Specimen collected: No Description of surgery: Patient brought to the operating room theater. Placed supine on the table. 2 g IV Ancef administered prior to the start of the case. General anesthesia induced. All bony prominences padded. SCD on the nonoperative leg. Tourniquet applied to the left thigh appropriately padded. Stress positioner to the left lower extremity. Lower extremity prepped and draped in the usual sterile fashion allowing over 3 minutes drying time prior to draping. Preoperative timeout performed to performed to confirm the site patient the surgery. Examination under anesthetic revealed full range of motion no hyperextension 2+ pivot shift and 2B Frandy. MCL stable. Began by elevating the limb and inflating the tourniquet to 250 mmHg. Use standard anterolateral and anteromedial arthroscopy portals. Did a full diagnostic arthroscopy. Cartilage all 3 compartments was normal, aside from a partial thickness [id number] lesion LFC. Lateral meniscus had small vertical tear near the posterior horn. Used a rasp to stimulate healing. Used 2 arthrex fiber stitch all inside implants vertical mattress to fix the tear. Stable afterwa rds. Normal roots. Medial meniscus had combined injury vertical tear 1.5cm and another vertical tear along the capsule - a ramp lesion. Used a rasp to stimulate healing. Used 4 fiberstitch all inside implants in vertical mattress fashion to fixate the tear. Stable afterwards. PCL appeared normal. There was an empty lateral wall sign with a full-thickness proximal ACL tear. Removed and debrided the remaining ACL stump. Identified the back wall. Arthroscope was withdrawn. Next I made a transverse incision at the distal quadriceps tendon insertion carried the dissection down through skin and subcutaneous tissue achieved meticulous hemostasis. Identified the vastus medialis stayed lateral to this. I harvested a 7 cm long by 9 mm central strip of the quadriceps tendon staying extra-articular using the Arthrex quad pro harvesting device. I opposed to the 2 sides of the quadriceps using the included arthrex stitch from the kit, fiberwire. Graft taken to the back table. I used the Arthrex all inside with the button system using the fiber tape in the typical fashion with the locking sutures and then buried the stitch on both ends. Fibertape included for internal brace. This measured 9 mm on the femur and 9.5 mm on the tibia. Graft was placed on tension with covered with a wet sponge. I then turned my attention back to the knee arthroscope was then placed. The passport cannula placed in the medial portal. I then drilled a 3 cm long tunnel retrograde low and posterior on the femoral side. Ensured a good backwall. Ensured good lateral cortex still intact - the total length was 5 cm and I drilled retrograde at 9 mm to 3 cm long tunnel. I then performed the same operation on the tibial side with retrograde drilling the total length of the tunnel was 5 cm so I drilled retrograde 3 cm length with 9.5 mm diameter on the tibial side all bone dust was cleared away. I passed the sutures passing sutures through both tunnels and through the passport cannula. I then passed the femoral side sutures with the tape coming back down through t (more content not included)... Normal [facility] Platelet countOrdered By: Jaime on 10-02-2024 Platelets (Bld) [#/Vol] 211 10*3/uL 150-450 [facility] RBC Auto (Bld) [#/Vol]Ordere d By: Wiliam Marie on 10-02-2024 RBC (Bld) [#/Vol] 5.75 10*6/uL 4.6-6.2 [facility] White blood cell (WBC) count Ordered By: Wiliam Marie on 10-02-2024 WBC (Bld) [#/Vol] 5.4 10*3/uL 4.4-11.0 [facility] Orthopedic Visit Reporton Orthopedic Visit Report [facility] [address] [place] [address] OFFICE VISIT Date of Service: 08/26/24 MR#: [id number] Acct: [id number] Name: PARIS RAMIREZ Rep #: [id number] : 1985 Provider: Dr. Adriano naranjo MD Age/Sex: 38/M Location: [facility] Status: Signed Intake Vital Signs 08/26/24 14:18 Height 6 ft 3 in Weight: 290 lb BMI 36.2 Intake Visit Reasons: RIGHT KNEE Chief Complaint: Left knee pain Accompanied by: Self Is patient in pain?: Yes Pain scale (1-10): 7 Allergies No Known Allergies Allergy (Unverified 08/26/24 14:21) Medications ???Medication ???Instructions ???Recorded ???Confirmed ???Type NK 08/26/24 08/26/24 History Have you fallen in the past year?: Yes [facility] Medical History (Updated 08/26/24 @ 14:47 by Adriano Granados MD) MCL sprain of left knee Effusion, left knee Tear of medial meniscus of left knee Left ACL tear Left knee pain Right knee pain Family History Mother No problems noted. Father No problems noted. Grandmother No problems noted. Grandfather No problems noted. Social History Smoking Status: Never smoker alcohol intake: never HPI RIGHT KNEE Details: This documentation accurately reflects the service provided and the decisions made by me, Dr. Adriano Granados MD 08/26/24 9773. Part of today???s visit was documented by [ ], acting as scribe. PARIS RAMIREZ is a 38 year old M here today for left knee pain. Referred for meniscus tear. a week- two weeks ago carrying a fish tank twisted the knee. using a brace. not a work injury. 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 up and off the ground, sitting kneeling into cars. feels unstable. swells right away, multiple pops. Supplemental Info Left (report states right though) knee MRI demonstrates complete ACL tear. longitudinal tear in the peripheral one third of the posterior horn of the medial meniscus grade 2-3 sprain MCL. small subchondral fracture medial tibia plateau posteriorly. large joint effusion. Pending the actual report this was taken from [facility]. Review of the MRI scanned into PACS. I independently reviewed the imaging. Concur with radiologist report. Coding Level of Care Code Off vis,new,level 4 Diagnoses Left knee pain M25.562 Left ACL tear S83.512A Tear of medial meniscus of left knee S83.242A Effusion, left knee M25.462 MCL sprain of left knee S83.412A Assessment and Plan Assessment and Plan (1) Left knee pain: Status: Acute Plan: 38-year-old man with an acute left ACL tear and medial meniscus tear. The patient also has a moderate grade sprain of the MCL at the proximal origin these tend to heal well with nonoperative management. That being said I went over the pros and cons risks and benefits of both conservative management nonoperative care versus surgical reconstruction. The patient wished to go ahead with surgery the patient is relatively young with good cartilage as well as physically demanding job. Without surgery the patient would likely have knee instability and high risk for long-term osteoarthritis damage to cartilage and further meniscus tears and injuries. Patient understands wishes to go ahead with surgery in the form of left knee anterior cruciate ligament reconstruction quadriceps tendon autograft, medial meniscus repair possible partial meniscectomy. Specific risks of surgery like repeat tear 5% fractures damage to other intra-articular structures VTE from time on crutches with the brace 6 weeks after surgery and other risks. He understands the risks wishes to proceed signed the form for today we will try to get this on as soon as possible. Full recovery before going back to pivoting and twisting and other very difficult demanding things on the knee would be 9 months. Pros and cons risks and benefits were discussed with the patient including but not limited to infection, pain, stiffness, bleeding, damage to surrounding structures, neurovascular injury, recurrence or retear, failure or wear of hardware or fixation, instability, fracture, deep vein thrombosis and pulmonary embolism, anesthetic risks, , patient dissatisfaction, need for further surgery and other risks. Patient understood and wished to proceed with surgery, and signed the informed consent documentation. (2) Left ACL tear: Status: Acute (3) Tear of medial meniscus of left knee: Status: Acute (4) Effusion, left knee: Status: Acute (5) MCL sprain of left knee: Status: Acute Clinical Quality Measures Falls Risk Screening/Assistive Devices Have you fallen in the past year?: Yes Ortho Exam General General: Yes no acute distress Alyssa (more content not included)... Normal [facility] CNOVon 08-22-2024 CNOV Office Visit ([facility]) PARIS RAMIREZ ([id number]) 1985 M Date Time Provider Department 08/22/24 1:15 PM SKYE PATHAK [facility] During your visit today, we recorded the following information about you: Pulse Weight Height 74/minute 130.6 kg 1.905 m Skye Pathak APRN.BOTTOMING ROOM SUPERVISOR 08/23/2024 2:46 PM Signed Skye Pathak APRN Orthopedic Sports Medicine Surgery [facility] [place] [address] Orthopedic Surgery Sports Medicine Note NAME: Paris Ramirez : 1985 DATE: 08/13/2024 CHIEF COMPLAINT: left knee pain HPI: Paris Ramirez is a 38 year old male who presents today with acute left knee pain after a crush twisting injury 10 days ago. He recently completed MRI and is here to review results. He continues to experience pain and swelling. Has been trying to work on gentle ROM, but struggles with motion due to swelling and sensation of instability. I have reviewed and updated the patient's past medical history, past surgical history, social history, and family history. This is located both in the patient's note and their intake form that has been scanned into the medical record for today's visit. PAST MEDICAL HISTORY: There is no problem list on file for this patient. CURRENT MEDICATIONS: Current Outpatient Medications Medication Sig ibuprofen (MOTRIN) 800 mg tablet Take 1 tablet by mouth three times a day as needed for pain. No current facility-administere d medications for this visit. ALLERGIES: Patient has no known allergies. SOCIAL HISTORY: Social History Tobacco Use Smoking status: Former Types: Cigarettes Smokeless tobacco: Never Vaping Use Vaping status: current everyday user Substances: Nicotine Substance Use Topics Alcohol use: Not Currently Drug use: Never FAMILY HISTORY: FAMILY HISTORY Problem Relation Age of Onset Dementia Mother Heart disease Mother Breast Cancer Mother Heart disease Father REVIEW OF SYSTEMS: As per HPI.? A 10 point review of systems was performed and was negative. PHYSICAL EXAM: Vital signs: Pulse 74 Ht 190.5 cm (6' 3) Wt 130.6 kg (288 lb) SpO2 97% BMI 36.00 kg/m? Constitutional: Well developed. Well nourished. Psychologic: Mood is appropriate. Appropriate affect. Head and Face: Normocephalic. No obvious deformities. External Ears Normal, no lesions or masses, grossly normal hearing. Eyes: Extraocular movements intact Pulmonary: Unlabored, normal effort. Cardiac: well perfused, extremities pink. Abdomen: Soft, not obese Skin: No rashes on exposed skin surface. Neuro: No focal neuro deficit, normal coordination, normal muscle tone Musculoskeletal: Left knee exam Inspection demonstrates moderate warm effusion with swelling concentrated over his superior patellar pouch. TTP globally over knee. Negative patellar grind. Range of motion limited to 5-90?. No crepitus with range of motion. Able perform some flexion of knee with significant lag of quad tendon. Unable to palpate defect with significant superior swelling. Ligamentous exam stable to varus and valgus stress at 0 and 30? of flexion. Frandy, posterior drawer, and [facility] testing is indeterminate. 2/2 apprehension from knee pain. Warm well perfused lower extremity with capillary refill less than 2 seconds and sensation intact to light touch in terminal nerve distributions. Calf soft and easily compressible without clinical signs of DVT. No palpable popliteal lymphadenopathy IMAGING: * * *Final Report* * * DATE OF EXAM: Aug 15 2024 3:58PM ROM 0212 - MRI KNEE WO IVCON LT / PROCEDURE REASON: multiple diagnoses * * * * Physician Interpretation * * * * EXAMINATION: MRI LEFT KNEE WITHOUT CONTRAST CLINICAL HISTORY: Rupture of anterior cruciate ligament of left knee, initial encounter. Quadriceps tendon rupture, left, initial encounter. Acute lateral meniscus tear of left knee, initial encounter. TECHNIQUE: Routine non-contrast MRI of the knee MQ: MRK_2B COMPARISON: None RESULT: MENISCI: Medial Meniscus: Longitudinal tear in peripheral 1/3 of the meniscus in the posterior horn (7:9). Lateral Meniscus: Intact. LIGAMENTS: ACL: Complete tear PCL: Intact MCL: High-grade partial to complete tear at the condylar attachment with periligamentous edema. LCL Complex: Intact CARTILAGE: Medial Femoral Condyle: Focal chondral defect at the weightbearing surface (7:10). Medial Tibial Plateau: Normal Lateral Femoral Condyle: Normal Lateral Tibial Plateau: Normal Patella: Normal Trochlea: Normal TENDONS: The distal quadriceps and patellar tendons are intact. The popliteus tendon is intact. BONES AND MARROW: Small linear subchondral fracture with surrounding edema noted at the posterior margin of the medial tibial plateau underlying the location of the medial meniscus tear (5:9). MUSCLES: Mild (more content not included)... Normal [facility] 08-16-2024 [facility] ([facility]) PARIS RAMIREZ ([id number]) 1985 M Date Time Provider Department 08/16/24 SKYE PATHAK [facility] During your visit today, we recorded the following information about you: Skye Pathak, COMMERCIAL BAKING TEACHER.[facility] 08/16/2024 2:38 PM Signed Called and spoke with patient MRI results. Explained that at this time he can remain WBAT. No further bracing is needed. He will take the prescribed medrol dose pack and f/u as scheduled. We will reassess at next fu. Allergies As of Date: 08/16/2024 (No Known Allergies) Date Reviewed: 08/13/2024 Reviewed by: Dinorah Youngblood ST - Fully Assessed Reason for Visit: Results [95] Prescriptions as of 08/16/2024 - predniSONE (DELTASONE) 10 mg tablet Take 6 tablets by mouth once daily for 1 day, THEN 5 tablets once daily for 1 day, THEN 4 tablets once daily for 1 day, THEN 3 tablets once daily for 1 day, THEN 2 tablets once daily for 1 day, THEN 1 tablet once daily for 1 day. Take 6 Pills Day 1 Take 5 Pills Day 2 Take 4 Pills Day 3 Take 3 Pills Day 4 Take 2 Pills Day 5 Take 1 Pill Day 6. - ibuprofen (MOTRIN) 800 mg tablet Take 1 tablet by mouth three times a day as needed for pain. Problem List As Of Date: 08/16/2024 (None) Encounter Status:Closed by SKYE PATHAK on 08/16/24 [facility] 08-15-2024 [facility] Telephone ([facility]) PARIS RAMIREZ ([id number]) 1985 M Date Time Provider Department 08/15/24 SKYE PATHAK [facility] During your visit today, we recorded the following information about you: Skye Pathak, COMMERCIAL BAKING TEACHER.[facility] 08/15/2024 1:26 PM Signed Med refill Allergies As of Date: 08/15/2024 (No Known Allergies) Date Reviewed: 08/13/2024 Reviewed by: Dinorah Youngblood ST - Fully Assessed Reason for Visit: Orders [681] Primary Visit Diagnosis:Rupture of anterior cruciate ligament of left knee, initial encounter [S83.512A] Order(s):predniSONE (DELTASONE) 10 mg tabletTake 6 tablets by mouth once daily for 1 day, THEN 5 tablets once daily for 1 day, THEN 4 tablets once daily for 1 day, THEN 3 tablets once daily for 1 day, THEN 2 tablets once daily for 1 day, THEN 1 tablet once daily for 1 day. Take 6 Pills Day 1 Take 5 Pills Day 2 Take 4 Pills Day 3 Take 3 Pills Day 4 Take 2 Pills Day 5 Take 1 Pill Day 6.Disp: 21 tabletRfl: 0 Prescriptions as of 08/15/2024 - predniSONE (DELTASONE) 10 mg tablet Take 6 tablets by mouth once daily for 1 day, THEN 5 tablets once daily for 1 day, THEN 4 tablets once daily for 1 day, THEN 3 tablets once daily for 1 day, THEN 2 tablets once daily for 1 day, THEN 1 tablet once daily for 1 day. Take 6 Pills Day 1 Take 5 Pills Day 2 Take 4 Pills Day 3 Take 3 Pills Day 4 Take 2 Pills Day 5 Take 1 Pill Day 6. - ibuprofen (MOTRIN) 800 mg tablet Take 1 tablet by mouth three times a day as needed for pain. Problem List As Of Date: 08/15/2024 (None) Prescriptions ordered this encounter Disp Refills Start End PREDNISONE 10 MG TABLET 21 t* 0 08/15/2024 08/21/2024 Route: ORAL Sig: Take 6 tablets by mouth once daily for 1 day, THEN 5 tablets once daily for 1 day, THEN 4 tablets once daily for 1 day, THEN 3 tablets once daily for 1 day, THEN 2 tablets once daily for 1 day, THEN 1 tablet once daily for 1 day. Take 6 Pills Day 1 Take 5 Pills Day 2 Take 4 Pills Day 3 Take 3 Pills Day 4 Take 2 Pills Day 5 Take 1 Pill Day 6. Encounter Status:Closed by SKYE PATHAK on 08/15/24 [facility] MR Knee - left WO ashlyon 08-15-2024 IMPRESSION: Complete ACL tear. Longitudinal tear in the peripheral one third of the posterior horn of the medial meniscus. Grade 2-3 sprain of the medial collateral ligament. Small subchondral fracture in the medial tibial plateau posteriorly underlying the location of the meniscus tear. Large joint effusion. Other incidental findings as above. Radiographer Cardiac Catheterization: JOE Transcribe Date/Time: Aug 15 2024 4:15P Dictated by : MACHO MORALES MD This examination was interpreted and the report reviewed and electronically signed by: MACHO MORALES MD on Aug 15 2024 4:26PM [facility] RADIOLOG[facility] * * *Final Report* * * DATE OF EXAM: Aug 15 2024 3:58PM ROM 0212 - MRI KNEE WO IVCON LT / PROCEDURE REASON: multiple diagnoses * * * * Physician Interpretation * * * * EXAMINATION: MRI LEFT KNEE WITHOUT CONTRAST CLINICAL HISTORY: Rupture of anterior cruciate ligament of left knee, initial encounter. Quadriceps tendon rupture, left, initial encounter. Acute lateral meniscus tear of left knee, initial encounter. TECHNIQUE: Routine non-contrast MRI of the knee MQ: MRK_2B COMPARISON: None RESULT: MENISCI: Medial Meniscus: Longitudinal tear in peripheral 1/3 of the meniscus in the posterior horn (7:9). Lateral Meniscus: Intact. LIGAMENTS: ACL: Complete tear PCL: Intact MCL: High-grade partial to complete tear at the condylar attachment with periligamentous edema. LCL Complex: Intact CARTILAGE: Medial Femoral Condyle: Focal chondral defect at the weightbearing surface (7:10). Medial Tibial Plateau: Normal Lateral Femoral Condyle: Normal Lateral Tibial Plateau: Normal Patella: Normal Trochlea: Normal TENDONS: The distal quadriceps and patellar tendons are intact. The popliteus tendon is intact. BONES AND MARROW: Small linear subchondral fracture with surrounding edema noted at the posterior margin of the medial tibial plateau underlying the location of the medial meniscus tear (5:9). MUSCLES: Mild intramuscular edema within the distal biceps femoris and posteriorly within the vastus medialis and vastus lateralis muscles suggestive of mild strain. JOINT FLUID AND SYNOVIUM: Large joint effusion. No Villalba's cyst. OTHER: There is diffuse subcutaneous and popliteal soft tissue edema. Localizer images: No additional findings. [facility] RADIOLOGY Provider, [facility] [place] - 08/15/2024 * * *Final Report* * * DATE OF EXAM: Aug 15 2024 3:58PM ROM 0212 - MRI KNEE WO IVCON LT / PROCEDURE REASON: multiple diagnoses * * * * Physician Interpretation * * * * EXAMINATION: MRI LEFT KNEE WITHOUT CONTRAST CLINICAL HISTORY: Rupture of anterior cruciate ligament of left knee, initial encounter. Quadriceps tendon rupture, left, initial encounter. Acute lateral meniscus tear of left knee, initial encounter. TECHNIQUE: Routine non-contrast MRI of the knee MQ: MRK_2B COMPARISON: None RESULT: MENISCI: Medial Meniscus: Longitudinal tear in peripheral 1/3 of the meniscus in the posterior horn (7:9). Lateral Meniscus: Intact. LIGAMENTS: ACL: Complete tear PCL: Intact MCL: High-grade partial to complete tear at the condylar attachment with periligamentous edema. LCL Complex: Intact CARTILAGE: Medial Femoral Condyle: Focal chondral defect at the weightbearing surface (7:10). Medial Tibial Plateau: Normal Lateral Femoral Condyle: Normal Lateral Tibial Plateau: Normal Patella: Normal Trochlea: Normal TENDONS: The distal quadriceps and patellar tendons are intact. The popliteus tendon is intact. BONES AND MARROW: Small linear subchondral fracture with surrounding edema noted at the posterior margin of the medial tibial plateau underlying the location of the medial meniscus tear (5:9). MUSCLES: Mild intramuscular edema within the distal biceps femoris and posteriorly within the vastus medialis and vastus lateralis muscles suggestive of mild strain. JOINT FLUID AND SYNOVIUM: Large joint effusion. No Villalba's cyst. OTHER: There is diffuse subcutaneous and popliteal soft tissue edema. Localizer images: No additional findings. IMPRESSION IMPRESSION: Complete ACL tear. Longitudinal tear in the peripheral one third of the posterior horn of the medial meniscus. Grade 2-3 sprain of the medial collateral ligament. Small subchondral fracture in the medial tibial plateau posteriorly underlying the location of the meniscus tear. Large joint effusion. Other incidental findings as above. Radiographer Cardiac Catheterization: JOE Transcribe Date/Time: Aug 15 2024 4:15P Dictated by : MACHO MORALES MD This examination was interpreted and the report reviewed and electronically signed by: MACHO MORALES MD on Aug 15 2024 4:26PM EST [facility] Radiology Study observation (narrative) [facility] MR Knee - left WO contrastOr dered By: [facility] Provider on 08-15-2024 [facility] MRI KNEE WO IVCON LTon 08-15 MRI KNEE WO IVCON LT * * *Final Report* * * DATE OF EXAM: Aug 15 2024 3:58PM ROM 0212 - MRI KNEE WO IVCON LT / PROCEDURE REASON: multiple diagnoses * * * * Physician Interpretation * * * * EXAMINATION: MRI LEFT KNEE WITHOUT CONTRAST CLINICAL HISTORY: Rupture of anterior cruciate ligament of left knee, initial encounter. Quadriceps tendon rupture, left, initial encounter. Acute lateral meniscus tear of left knee, initial encounter. TECHNIQUE: Routine non-contrast MRI of the knee MQ: MRK_2B COMPARISON: None RESULT: MENISCI: Medial Meniscus: Longitudinal tear in peripheral 1/3 of the meniscus in the posterior horn (7:9). Lateral Meniscus: Intact. LIGAMENTS: ACL: Complete tear PCL: Intact MCL: High-grade partial to complete tear at the condylar attachment with periligamentous edema. LCL Complex: Intact CARTILAGE: Medial Femoral Condyle: Focal chondral defect at the weightbearing surface (7:10). Medial Tibial Plateau: Normal Lateral Femoral Condyle: Normal Lateral Tibial Plateau: Normal Patella: Normal Trochlea: Normal TENDONS: The distal quadriceps and patellar tendons are intact. The popliteus tendon is intact. BONES AND MARROW: Small linear subchondral fracture with surrounding edema noted at the posterior margin of the medial tibial plateau underlying the location of the medial meniscus tear (5:9). MUSCLES: Mild intramuscular edema within the distal biceps femoris and posteriorly within the vastus medialis and vastus lateralis muscles suggestive of mild strain. JOINT FLUID AND SYNOVIUM: Large joint effusion. No Villalba's cyst. OTHER: There is diffuse subcutaneous and popliteal soft tissue edema. Localizer images: No additional findings. IMPRESSION: Complete ACL tear. Longitudinal tear in the peripheral one third of the posterior horn of the medial meniscus. Grade 2-3 sprain of the medial collateral ligament. Small subchondral fracture in the medial tibial plateau posteriorly underlying the location of the meniscus tear. Large joint effusion. Other incidental findings as above. Radiographer Cardiac Catheterization[facility] Transcribe Date/Time: Aug 15 2024 4:15P Dictated by : MACHO MORALES MD This examination was interpreted and the report reviewed and electronically signed by: MACHO MORALES MD on Aug 15 2024 4:26PM EST [id number] [facility] CNOVon 08-13-2024 [facility] PARIS RAMIREZ ([id number]) 1985 M Date Time Provider Department 08/13/24 11:30 AM SKYE PATHAK [facility] During your visit today, we recorded the following information about you: Pulse Weight Height 61/minute 132 kg 1.905 m Skye Pathak APRN.BOTTOMING ROOM SUPERVISOR 08/13/2024 12:08 PM Signed Skye Pathak APRN Orthopedic Sports Medicine Surgery [address] [place] [address] [address], [place] [address] Orthopedic Surgery Sports Medicine Note NAME: Paris Ramirez : 1985 DATE: 08/13/2024 CHIEF COMPLAINT: left knee pain HPI: Paris Ramirez is a 38 year old male who presents today with acute left knee pain after a crush twisting injury 3 days ago. 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 He felt immediate painful popping. Had difficulty ambulating afterwards so presented to urgent care where x-ray of knee revealed no acute fracture or mal-alignment. He was placed in a knee immobilizer presents today for further evaluation. He continues to have pain and swelling, worst over the entire knee. He has minimal motion. Denies any numbness. I have reviewed and updated the patient's past medical history, past surgical history, social history, and family history. This is located both in the patient's note and their intake form that has been scanned into the medical record for today's visit. PAST MEDICAL HISTORY: There is no problem list on file for this patient. CURRENT MEDICATIONS: Current Outpatient Medications Medication Sig ibuprofen (MOTRIN) 800 mg tablet Take 1 tablet by mouth three times a day as needed for pain. No current facility-administere d medications for this visit. ALLERGIES: Patient has no known allergies. SOCIAL HISTORY: Social History Tobacco Use Smoking status: Former Types: Cigarettes Smokeless tobacco: Never Vaping Use Vaping status: current everyday user Substances: Nicotine Substance Use Topics Alcohol use: Not Currently Drug use: Never FAMILY HISTORY: FAMILY HISTORY Problem Relation Age of Onset Dementia Mother Heart disease Mother Breast Cancer Mother Heart disease Father REVIEW OF SYSTEMS: As per HPI.? A 10 point review of systems was performed and was negative. PHYSICAL EXAM: Vital signs: Pulse 61 Ht 190.5 cm (6' 3) Wt 132 kg (291 lb) SpO2 94% BMI 36.37 kg/m? Constitutional: Well developed. Well nourished. Psychologic: Mood is appropriate. Appropriate affect. Head and Face: Normocephalic. No obvious deformities. External Ears Normal, no lesions or masses, grossly normal hearing. Eyes: Extraocular movements intact Pulmonary: Unlabored, normal effort. Cardiac: well perfused, extremities pink. Abdomen: Soft, not obese Skin: No rashes on exposed skin surface. Neuro: No focal neuro deficit, normal coordination, normal muscle tone Musculoskeletal: Left knee exam Inspection demonstrates moderate warm effusion with swelling concentrated over his superior patellar pouch. TTP globally over knee. Negative patellar grind. Range of motion limited to 5-90?. No crepitus with range of motion. Able perform some flexion of knee with significant lag of quad tendon. Unable to palpate defect with significant superior swelling. Ligamentous exam stable to varus and valgus stress at 0 and 30? of flexion. Frandy, posterior drawer, and [facility] testing is indeterminate. 2/2 apprehension from knee pain. Warm well perfused lower extremity with capillary refill less than 2 seconds and sensation intact to light touch in terminal nerve distributions. Calf soft and easily compressible without clinical signs of DVT. No palpable popliteal lymphadenopathy IMAGING: * * *Final Report* * * DATE OF EXAM: Aug 11 2024 9:00PM RNX [id number] - XR KNEE 4V AP/LAT/OBLS LT / PROCEDURE REASON: Acute pain of left knee * * * * Physician Interpretation * * * * XR KNEE 4V AP/LAT/OBLS LT Ordering Physician: BATOOL BUTLER 08/11/2024 9:00 PM LEFT KNEE Clinical Statement: Injury with pain FINDINGS: 5 images of the left knee were obtained. There were no prior studies available for comparison. The osseous structures are intact. No acute fractures are identified. The joint spaces are maintained. There is mild anterior soft tissue swelling. There is a small joint effusion. ASSESSMENT/ PLAN: 38 year old male seen today internal derangement of left knee Significant concern for soft tissue injury with possible meniscal vs ACL vs. Quad tendon rupture. I recommend that patient maintain knee immobilizer while up ambulating. Do not recommend flexion past 45 degrees with when sitting. Ok to WBAT with leg in full extension. We will plan for stat MRI. F/u once completed. Allergies As of Date: 08/13/2024 (No Known Allergies) Date Reviewed: (more content not included)... Normal [facility] 08-12-2024 [facility] Telephone ([facility]) PARIS RAMIREZ ([id number]) 1985 M Date Time Provider Department 08/12/24 BATOOL BUTLER [facility] During your visit today, we recorded the following information about you: Tarah Rowell LPN 08/12/2024 8:51 AM Signed Patient called and stated that he was here last night 08-11-24 for a knee injury. When he called the ortho given its a month out to be seen, he called other orthos and they are still the same. What should he do? DAVID Zavala Oliver Labrador, MD 08/12/2024 9:57 AM Signed My recommendation is for the patient to call [facility] so he can be scheduled with other orthopedics in the [facility] system. Thank you. Tarah Rowell LPN 08/13/2024 1:08 PM Signed Called patient,he stated he was seen today at [facility] and got his MRI scheduled. Tarah Rowell LPN Allergies As of Date: 08/12/2024 (No Known Allergies) Date Reviewed: 05/17/2024 Reviewed by: Sasha Barreto LPN - Fully Assessed Reason for Visit: Patient Question [6359] Cmt: Unable to get in ortho office Prescriptions as of 08/13/2024 - ibuprofen (MOTRIN) 800 mg tablet Take 1 tablet by mouth three times a day as needed for pain. Problem List As Of Date: 08/12/2024 (None) Encounter Status:Closed by HIPOLITO ALEXANDER on 08/12/24 [facility] Ruth 08-11-2024 CNOV Office Visit (UCMNCA) PARIS RAMIREZ ([id number]) 1985 M Date Time Provider Department 08/11/24 8:30 PM BATOOL BUTLER [facility] During your visit today, we recorded the following information about you: Temperature Pulse Respiration Blood pressure 98.3 degrees 63/minute 16/minute 127/84 Weight 145.2 kg Batool Butler MD 08/11/2024 9:01 PM Signed [facility] Subjective Paris Ramirez is a 38 year old male. Patient presents with: Fall: Patient stated that he had a fall tonight and landed on left knee and LLE went sideways. Patient heard a pop 38-year-old male patient presented here plaint left knee pain. Patient fell landed on his left knee went sideways since then the knee is hurting and swelling no other complaint. Review of Systems Musculoskeletal: Positive for arthralgias, joint swelling and myalgias. All other systems reviewed and are negative. Objective BP 127/84 Pulse 63 Temp 36.8 ?C (98.3 ?F) Resp 16 Wt (!) 145.2 kg (320 lb) SpO2 96% BMI 40.00 kg/m? Physical Exam Vitals and nursing note reviewed. Constitutional: Appearance: Normal appearance. Cardiovascular: Rate and Rhythm: Normal rate and regular rhythm. Pulses: Normal pulses. Heart sounds: Normal heart sounds. Pulmonary: Effort: Pulmonary effort is normal. Breath sounds: Normal breath sounds. Musculoskeletal: Comments: Examination of the left knee there is an abrasion some minimal swelling limited range of motion due to pain, flexion extension of the knee is limited due to pain. Anterior posterior drawer signs could not be performed due to limited range of motion. Neurological: Mental Status: He is alert. {ASSESSMENT/PLAN: 1. Acute pain of left knee - ICD9: 719.46, ICD10: M25.562 Discussed with patient treatments and plan I immobilized his knee gave him crutches refer him to an orthopedic - XR KNEE INJURY 4V AP/LAT/OBLS LEFT - KNEE IMMOBILIZER - CRUTCHES Batool Butler MD Management I performed an independent interpretation of the following:imaging Imaging: My interpretation is Soft tissue swelling no acute fracture Procedures Referring Provider: SELF [[id number]] Allergies As of Date: 08/11/2024 (No Known Allergies) Date Reviewed: 05/17/2024 Reviewed by: Sasha Barreto LPN - Fully Assessed Reason for Visit: Fall [218] Cmt: Patient stated that he had a fall tonight and landed on left knee and LLE went sideways. Patient heard a pop Primary Visit Diagnosis:Acute pain of left knee [M25.562] Order(s):XR KNEE INJURY 4V AP/LAT/OBLS LEFT [[id number]] Order #: [id number] FUTURE KNEE IMMOBILIZER [[id number]] Order #: [id number] CRUTCHES [[id number]] Order #: [id number] ibuprofen (MOTRIN) 800 mg tabletTake 1 tablet by mouth three times a day as needed for pain.Disp: 30 tabletRfl: 0 Prescriptions as of 08/11/2024 - ibuprofen (MOTRIN) 800 mg tablet Take 1 tablet by mouth three times a day as needed for pain. - ciprofloxacin HCl (CIPRO) 500 mg tablet Take 1 tablet by mouth every 12 hours. - oxybutynin (DITROPAN) 5 mg tablet Take 1 tablet by mouth two times a day. - iv contrast (will be provided with radiology test) CT Urogram WO/W Inject, intravenously, once for 1 dose.No IV access, insert saline lock prior to the beginning of sedation, infusion, injection of imaging exam. Discontinue saline lock post exam. If Pt. has a central line or IVAD, may access for administration according to line specific nursing protocol. Once exam is complete flush line and de-access according to line specific nursing protocol in the CT contrast administration guidelines link. Problem List As Of Date: 08/11/2024 (None) Prescriptions ordered this encounter Disp Refills Start End IBUPROFEN 800 MG TABLET 30 t* 0 08/11/2024 09/10/2024 Route: ORAL Sig: Take 1 tablet by mouth three times a day as needed for pain. Encounter Status:Closed by BATOOL BUTLER on 08/11/24 [facility] XR KNEE 4V AP/LAT/OBLS LTon 08-11-2024 XR KNEE 4V AP/LAT/OBLS LT * * *Final Report* * * DATE OF EXAM: Aug 11 2024 9:00PM RNX [id number] - XR KNEE 4V AP/LAT/OBLS LT / PROCEDURE REASON: Acute pain of left knee * * * * Physician Interpretation * * * * XR KNEE 4V AP/LAT/OBLS LT Ordering Physician: BATOOL BUTLER 08/11/2024 9:00 PM LEFT KNEE Clinical Statement: Injury with pain FINDINGS: 5 images of the left knee were obtained. There were no prior studies available for comparison. The osseous structures are intact. No acute fractures are identified. The joint spaces are maintained. There is mild anterior soft tissue swelling. There is a small joint effusion. IMPRESSION: Mild soft tissue swelling and a small joint effusion. No acute osseous abnormalities. Radiographer Cardiac Catheterization: PSCB Transcribe Date/Time: Aug 12 2024 7:51A Dictated by : VERONICA SORTO MD This examination was interpreted and the report reviewed and electronically signed by: VERONICA SORTO MD on Aug 12 2024 7:54AM EST [id number] [facility] CNOVon 07-05-2024 [facility] Office Visit (UCMNCA) PARIS RAMIREZ ([id number]) 1985 M Date Time Provider Department 07/05/24 4:25 PM BATOOL BUTLER [facility] During your visit today, we recorded the following information about you: Temperature Pulse Respiration Blood pressure 98.4 degrees 62/minute 14/minute 121/84 Weight 145.2 kg Batool Butler MD 07/05/2024 5:03 PM Signed Paris Ramirez is a 38 year old male who presents with Other (Pimple like sore - Entered by patient) and Pain (Patient stated that he has an area on corpus spongiosum. ) 38-year-old male patient presented here had a painful lesion on his foreskin. Patient was here couple weeks ago was treated with antibiotics cleared up and now came back patient is seen a urologist and they could not see the lesion after he had been treated. No fevers no other complaint No past medical history on file. There is no problem list on file for this patient. Current Outpatient Medications Medication Sig Dispense Refill cephALEXin (KEFLEX) 500 mg capsule Take 1 capsule by mouth three times a day for 10 days. 30 capsule 0 sulfamethoxazole-tri methoprim (BACTRIM DS) 800-160 mg per tablet Take 1 tablet by mouth two times a day for 10 days. 20 tablet 0 ciprofloxacin HCl (CIPRO) 500 mg tablet Take 1 tablet by mouth every 12 hours. (Patient not taking: Reported on 07/05/2024) oxybutynin (DITROPAN) 5 mg tablet Take 1 tablet by mouth two times a day. (Patient not taking: Reported on 07/05/2024) 90 tablet 3 iv contrast (will be provided with radiology test) CT Urogram WO/W Inject, intravenously, once for 1 dose.No IV access, insert saline lock prior to the beginning of sedation, infusion, injection of imaging exam. Discontinue saline lock post exam. If Pt. has a central line or IVAD, may access for administration according to line specific nursing protocol. Once exam is complete flush line and de-access according to line specific nursing protocol in the CT contrast administration guidelines link. (Patient not taking: Reported on 07/05/2024) 1 Each 0 No current facility-administere d medications for this visit. Social History Tobacco Use Smoking status: Former Types: Cigarettes Smokeless tobacco: Never Vaping Use Vaping status: current everyday user Substances: Nicotine Substance Use Topics Alcohol use: Not Currently Drug use: Never Alcohol Use: Not Currently Tobacco Use: Types: Cigarettes FAMILY HISTORY Problem Relation Age of Onset Dementia Mother Heart disease Mother Breast Cancer Mother Heart disease Father Review of Systems All other systems reviewed and are negative. BP 121/84 Pulse 62 Temp (Src) 98.4 (Temporal) Resp 14 Wt 320 lb (145.2kg) SpO2 95% Physical Exam Vitals and nursing note reviewed. Constitutional: Appearance: Normal appearance. Cardiovascular: Rate and Rhythm: Normal rate and regular rhythm. Pulses: Normal pulses. Heart sounds: Normal heart sounds. Pulmonary: Effort: Pulmonary effort is normal. Breath sounds: Normal breath sounds. Genitourinary: Comments: Painful swollen lesion on the lateral side of the foreskin. No drainage Neurological: Mental Status: He is alert. Procedures ASSESSMENT/PLAN: 1. Infected skin lesion - ICD9: 686.9, ICD10: L08.9 Place patient on Keflex 500 mg p.o. 3 times daily, Bactrim DS 1 tab twice a day have him follow-up with his urologist treatments and plans to discussed Batool Butler Allergies As of Date: 07/05/2024 (No Known Allergies) Date Reviewed: 05/17/2024 Reviewed by: Sasha Barreto LPN - Fully Assessed Reason for Visit: Other [0] Cmt: Pimple like sore - Entered by patient Pain [78] Cmt: Patient stated that he has an area on corpus spongiosum. Primary Visit Diagnosis:Infected skin lesion [L08.9] Order(s):cephALEXin (KEFLEX) 500 mg capsuleTake 1 capsule by mouth three times a day for 10 days.Disp: 30 capsuleRfl: 0 sulfamethoxazole-tri methoprim (BACTRIM DS) 800-160 mg per tabletTake 1 tablet by mouth two times a day for 10 days.Disp: 20 tabletRfl: 0 Prescriptions as of 07/05/2024 - cephALEXin (KEFLEX) 500 mg capsule Take 1 capsule by mouth three times a day for 10 days. - sulfamethoxazole-tri methoprim (BACTRIM DS) 800-160 mg per tablet Take 1 tablet by mouth two times a day for 10 days. - ciprofloxacin HCl (CIPRO) 500 mg tablet Take 1 tablet by mouth every 12 hours. - oxybutynin (DITROPAN) 5 mg tablet Take 1 tablet by mouth two times a day. - iv contrast (will be provided with radiology test) CT Urogram WO/W Inject, intravenously, once for 1 dose.No IV access, insert saline lock prior to the beginning of sedation, infusion, injection of imaging exam. Discontinue saline lock post exam. If Pt. has a central line or IVAD, may access for administration according to line specific nursing protocol. Once exam is complete flush line and de-access according to (more content not included)... [facility] Tevin 05-24-2024 SHWETHA Telephone (UROALL) PAR[place] RAMIREZ ([id number]) 1985 M Date Time Provider Department 05/24/24 JENN ELIZALDE During your visit today, we recorded the following information about you: Allergies As of Date: 05/24/2024 (No Known Allergies) Date Reviewed: 05/17/2024 Reviewed by: Sasha Barreto LPN - Fully Assessed Reason for Visit: Appointment [186] Cmt: LEFT PATIENT MESSAGE TO CALL AND R/S MISSED POST OP APPOINTMENT Prescriptions as of 05/24/2024 - ciprofloxacin HCl (CIPRO) 500 mg tablet Take 1 tablet by mouth every 12 hours. - oxybutynin (DITROPAN) 5 mg tablet Take 1 tablet by mouth two times a day. - iv contrast (will be provided with radiology test) CT Urogram WO/W Inject, intravenously, once for 1 dose.No IV access, insert saline lock prior to the beginning of sedation, infusion, injection of imaging exam. Discontinue saline lock post exam. If Pt. has a central line or IVAD, may access for administration according to line specific nursing protocol. Once exam is complete flush line and de-access according to line specific nursing protocol in the CT contrast administration guidelines link. Problem List As Of Date: 05/24/2024 (None) Encounter Status:Closed by TAVARES SALVADOR on 05/24/24 [facility] CNDemarcus 05-17-2024 CNOV Office Visit (DUTCH) [place] RAMIREZ ([id number]) 1985 M Date Time Provider Department 05/17/24 11:30 AM JENN ELIZALDE During your visit today, we recorded the following information about you: Jenn Elizalde MD 05/17/2024 12:02 PM Signed [place] Ramirez is a 38 year old male who presents with Follow-up his catheter fell out today. He did not pull it out or just fell out something it was defective. We put another 18 and he bled fairly good when it fell out he is also getting bladder spasm we will give him some Ditropan Review of Systems- Reviewed and otherwise non-contributory. There were no vitals taken for this visit. History reviewed. No pertinent past medical history. PAST SURGICAL HISTORY Procedure Laterality Date PENIS SURGERY HX uretheral work when he was 11 Current Outpatient Medications Medication Sig Dispense Refill oxyCODONE-acetaminop hen (PERCOCET) 5-325 mg tablet TAKE 1 TABLET BY MOUTH EVERY 6 HOURS FOR 7 DAYS NEEDED FOR PAIN ciprofloxacin HCl (CIPRO) 500 mg tablet Take 1 tablet by mouth every 12 hours. iv contrast (will be provided with radiology test) CT Urogram WO/W Inject, intravenously, once for 1 dose.No IV access, insert saline lock prior to the beginning of sedation, infusion, injection of imaging exam. Discontinue saline lock post exam. If Pt. has a central line or IVAD, may access for administration according to line specific nursing protocol. Once exam is complete flush line and de-access according to line specific nursing protocol in the CT contrast administration guidelines link. 1 Each 0 No current facility-administere d medications for this visit. (R31.29) Microscopic hematuria (primary encounter diagnosis) Plan week ic and dc jamia Elizalde MD This note was generated with voice recognition software and may contain errors, including spelling, grammar, syntax and misrecognition of what was dictated, that are not fully corrected. Sasha Barreto LPN 05/17/2024 12:02 PM Signed Sánchez catheter placement done today with # 18 Fr catheter. Inserted without complication using sterile technique. Clear yellow urine noted in tubing. No c/o at this time. Sasha Barreto LPN Referring Provider: JENN ELIZALDE [[id number]] Allergies As of Date: 05/17/2024 (No Known Allergies) Date Reviewed: 05/17/2024 Reviewed by: Sasha Barreto LPN - Fully Assessed Reason for Visit: Follow Up [171] Cmt: Catheter came out Primary Visit Diagnosis:Microscopi c hematuria [R31.29] Order(s):oxybutynin (DITROPAN) 5 mg tabletTake 1 tablet by mouth two times a day.Disp: 90 tabletRfl: 3 Prescriptions as of 05/17/2024 - oxyCODONE-acetaminop hen (PERCOCET) 5-325 mg tablet TAKE 1 TABLET BY MOUTH EVERY 6 HOURS FOR 7 DAYS NEEDED FOR PAIN - ciprofloxacin HCl (CIPRO) 500 mg tablet Take 1 tablet by mouth every 12 hours. - oxybutynin (DITROPAN) 5 mg tablet Take 1 tablet by mouth two times a day. - iv contrast (will be provided with radiology test) CT Urogram WO/W Inject, intravenously, once for 1 dose.No IV access, insert saline lock prior to the beginning of sedation, infusion, injection of imaging exam. Discontinue saline lock post exam. If Pt. has a central line or IVAD, may access for administration according to line specific nursing protocol. Once exam is complete flush line and de-access according to line specific nursing protocol in the CT contrast administration guidelines link. Problem List As Of Date: 05/17/2024 (None) Prescriptions ordered this encounter Disp Refills Start End OXYBUTYNIN CHLORIDE 5 MG TABLET 90 t* 3 05/17/2024 Route: ORAL Sig: Take 1 tablet by mouth two times a day. Encounter Status:Closed by JENN ELIZALDE on 05/17/24 [facility] Tevin 05-14-2024 SHWETHA Telephone (DUTCH) [place] RAMIREZ ([id number]) 1985 M Date Time Provider Department 05/14/24 JENN ELIZALDE During your visit today, we recorded the following information about you: ImmanuelTete colunga 05/14/2024 3:38 PM Signed Needs post op/sánchez out in 10 days Allergies As of Date: 05/14/2024 (No Known Allergies) Date Reviewed: 04/11/2024 Reviewed by: Liliana Pearson LPN - Fully Assessed Reason for Visit: Appointment [186] Cmt: Needs post op/sánchez out in 10 days Prescriptions as of 05/14/2024 - iv contrast (will be provided with radiology test) CT Urogram WO/W Inject, intravenously, once for 1 dose.No IV access, insert saline lock prior to the beginning of sedation, infusion, injection of imaging exam. Discontinue saline lock post exam. If Pt. has a central line or IVAD, may access for administration according to line specific nursing protocol. Once exam is complete flush line and de-access according to line specific nursing protocol in the CT contrast administration guidelines link. Problem List As Of Date: 05/14/2024 (None) Encounter Status:Closed by TETE DOAN on 05/14/24 [facility] CNOVon 04-22-2024 CNOV Office Visit (UROALL) [place] RAMIREZ ([id number]) 1985 M Date Time Provider Department 04/22/24 9:45 AM JENN ELIZALDE During your visit today, we recorded the following information about you: Weight Height 145.2 kg 1.905 m Vonnie Harris LPN 04/22/2024 10:01 AM Signed Peak Flow rate 12.6 Voided 54ML Pvr 0ml Jenn Elizalde MD 04/22/2024 10:01 AM Signed [place] Ramirez is a 38 year old male who presents with Follow-up of his bad cystitis. That urethral stricture we did a flow today he empties totally his flow is actually not too bad is 12.6 and he only voided 54 just really not too bad I think you are still going to set him up for a VIU at some point we talked about intermittent cath after and a catheter for 10 days. Will look at his CT urogram right now it looks normal I do not have the report Review of Systems- Reviewed and otherwise non-contributory. Ht 190.5 cm (6' 3) Wt (!) 145.2 kg (320 lb) BMI 40.00 kg/m? No past medical history on file. PAST SURGICAL HISTORY Procedure Laterality Date PENIS SURGERY HX uretheral work when he was 11 Current Outpatient Medications Medication Sig Dispense Refill ciprofloxacin HCl (CIPRO) 500 mg tablet Take 1 tablet by mouth two times a day for 14 days. 28 tablet 0 iv contrast (will be provided with radiology test) CT Urogram WO/W Inject, intravenously, once for 1 dose.No IV access, insert saline lock prior to the beginning of sedation, infusion, injection of imaging exam. Discontinue saline lock post exam. If Pt. has a central line or IVAD, may access for administration according to line specific nursing protocol. Once exam is complete flush line and de-access according to line specific nursing protocol in the CT contrast administration guidelines link. 1 Each 0 No current facility-administere d medications for this visit. (N48.1) Balanitis (primary encounter diagnosis) Plan VIU Jenn Elizalde MD This note was generated with voice recognition software and may contain errors, including spelling, grammar, syntax and misrecognition of what was dictated, that are not fully corrected. Referring Provider: JENN ELIZALDE [[id number]] Allergies As of Date: 04/22/2024 (No Known Allergies) Date Reviewed: 04/11/2024 Reviewed by: Liliana Pearson LPN - Fully Assessed Reason for Visit: Follow Up [171] Primary Visit Diagnosis:Balanitis [N48.1] Order(s):BLADDER SCAN [[id number]] Order #: [id number] FLOW RATE [[id number]] Order #: [id number] Prescriptions as of 04/22/2024 - ciprofloxacin HCl (CIPRO) 500 mg tablet Take 1 tablet by mouth two times a day for 14 days. - iv contrast (will be provided with radiology test) CT Urogram WO/W Inject, intravenously, once for 1 dose.No IV access, insert saline lock prior to the beginning of sedation, infusion, injection of imaging exam. Discontinue saline lock post exam. If Pt. has a central line or IVAD, may access for administration according to line specific nursing protocol. Once exam is complete flush line and de-access according to line specific nursing protocol in the CT contrast administration guidelines link. Problem List As Of Date: 04/22/2024 (None) Disposition: Return for VIU may. Follow-up and Disposition History for Encounter Date Provider Department Center 04/22/2024 [id number] ELIZALDE [facility] Encounter Status:Closed by JENN ELIZALDE on 04/22/24 Normal [facility] CT UROGRAM WO/W IVCONon 12 CT UROGRAM WO/W IVCON * * *Final Report* * * DATE OF EXAM: Apr 19 2024 6:34PM [facility] 0560 - CT UROGRAM WO/W IVCON / PROCEDURE REASON: Microscopic hematuria * * * * Physician Interpretation * * * * EXAMINATION: CT ABDOMEN AND PELVIS WITHOUT AND WITH IV CONTRAST, INCLUDING EXCRETORY PHASE IMAGING (CT UROGRAM) 3D RECONSTRUCTIONS CLINICAL HISTORY: Microscopic hematuria. TECHNIQUE: CT urogram protocol including unenhanced, combined renal parenchymal phase and excretory phase (split bolus) renal imaging was obtained following IV contrast. Normal saline was also administered IV. No oral contrast was given. 3D image post-processing was performed and archived at the request of the referring physician, on the CT scanner workstation without concurrent physician supervision. MQ: CTU_2 Contrast: IV: 150 ml of Omnipaque 350 Oral Contrast: None CT Radiation dose: Integrated dose-length product (DLP) for this visit = 2228.63 mGy*cm. CT Dose Reduction Employed: Automated exposure control(AEC) and iterative recon COMPARISON: None. RESULT: Kidneys and urinary tract: Right: No nephrolithiasis or hydronephrosis. Normal enhancement of the renal parenchyma. No suspicious renal mass. Good contrast excretion. No upper tract urothelial lesion. Left: No nephrolithiasis or hydronephrosis. Normal enhancement of the renal parenchyma. A cyst within the lower pole measures 0.8 cm. No suspicious renal mass. Good contrast excretion. No upper tract urothelial lesion. Bladder: No filling defect, calculus, focal or diffuse wall thickening. Abdomen and Pelvis: Liver: Normal liver morphology. No suspicious hepatic mass. Biliary: No bile duct dilation. Gallbladder is unremarkable. Spleen: No mass. No splenomegaly. Pancreas: No mass or duct dilation. Adrenals: No mass. GI tract: The bowel is normal in caliber and without evidence of wall thickening or obstruction. The appendix is normal. There are sigmoid colonic diverticula, without associated inflammation. Lymph nodes: No abdominal or pelvic lymphadenopathy. Mesentery/Peritoneum : No ascites or mass. Retroperitoneum: No mass. Vasculature: - Abdominal aorta and iliac arteries: No aneurysm. - Celiac and SMA: Patent without stenosis. - Portal venous system (SMV, splenic vein, portal vein and branches): Patent. - Hepatic veins: Patent. Pelvis: No mass, ascites or fluid collection. Bones and Soft Tissues: No destructive lytic or blastic osseous abnormality. Lower thorax: Mild bibasilar juxtapleural subsegmental atelectasis. Localizer images: No additional findings. IMPRESSION: 1. No findings to account for symptoms of hematuria. Specifically, no nephrolithiasis, suspicious renal mass or upper tract urothelial lesion. 2. No acute abnormality. Radiographer Cardiac Catheterization: JOE Transcribe Date/Time: Apr 24 2024 11:19A Dictated by : ERIN OGLESBY MD This examination was interpreted and the report reviewed and electronically signed by: ERIN OGLESBY MD on Apr 24 2024 12:43PM EST [id number] CN Normal [facility] PSA SerPl-mCncon 04-13-2024 Prostate specific Ag [Mass/Vol] 0.40 ng/mL Normal <2.60 [facility] Comment on above: Order Comment: Speci men Type: BLOOD SPECIMENOrdering Facility: [facility] Address: [address] [place] [address] Result Comment: This is a new methodology for this marker. Tumor markers obtained from different assay methods cannot be used interchangeably. Expect results of this assay to run lower than the previous assay. It is recommended to re-baseline patients when changing to a new methodology. Performed By: #### 2 857-1 ####[facility] LABORATORYCLIA [id number] [place] [address] [place] Bacteria Ur Culton 4 Bacteria identified Cx Nom (U) ORGANISM ID: 1 >=100,000 CFU/ml Escherichia coli ORGANISM ID: 1 (ESCHERICHIA COLI) ANTIBIOTIC INTERPRETATION DONNA STATUS REFERENCE RANGE Ampicillin S <=4 F Susceptible <=8 , Intermediate >8 , Resistant >16 Cefazolin S <=1 F Susceptible 0-16 , Intermediate <0 or >16 , Resistant >16 For uncomplicated urinary tract infections, cefazolin results can be used to predict susceptibility or resistance to cephalexin. Ceftriaxone S <=1 F Susceptible <=1 , Intermediate >1 , Resistant >=4 Cefepime S <=1 F Susceptible <=2 , Susceptible-Dose Dependent >2 , Resistant >=16 Ertapenem S <=0.25 F Susceptible <=0.5 , Intermediate >.5 , Resistant >1 Meropenem S <=0.5 F Susceptible <=1 , Intermediate >1 , Resistant >2 Amoxicillin Clav S <=4 F Ampicillin/Sulbact S 2 F Piperacillin/Tazobac S <=2 F Gentamicin S <=2 F Susceptible <=2 , Intermediate >2 , Resistant >=8 Trimeth sulfameth S <=0.5 F Ciprofloxacin S <=0.25 F Susceptible <0.5 , Intermediate >=.5 , Resistant >=1 Nitrofurantoin S <=16 F Susceptible <=32 , Intermediate >32 , Resistant >64 Abnormal [facility] Comment on above: Performed By: #### 6 30-4 ####[facility] LABORATORYCLIA [id number] [place] [address] [place] CNOVon 04-11-2024 CNOV Office Visit (UROALL) PARIS RAMIREZ ([id number]) 1985 M Date Time Provider Department 04/11/24 3:00 PM JENN ELIZALDE During your visit today, we recorded the following information about you: Weight Height 136.1 kg 1.905 m Liliana Pearson LPN 04/11/2024 3:03 PM Signed Chief Knowledge Officer present: Jenn Elizalde MD 04/11/2024 3:45 PM Signed CYSTOSCOPY PROCEDURE NOTE: Paris Ramirez is a 38 year old male who presents with follow-up of his gross hematuria and blood clots. He passed some more today had a miserable night a lot of frequency and urgency and exact start to get chills so we brought him in at the end of the day and did a flexible cystoscope he does have a proximal urethral stricture look like I could see the little scars I think he might be a third 1 and there but he knew he had a surgery when he was a kid and there is some scar there. I just wonder if this is what aggravated everything prostate looks pretty normal his bladder is diffusely red area where he has been taken some Pyridium so I did irrigate him a few times forgets it well but is completely red I do not think there is any bladder cancer there. I also did a renal ultrasound kidneys are about 10 cm and look pretty normal we still want to do the CT urogram though I think the answer is good to be pretty bad prostatitis/cystitis probably aggravated by that scar Pt ID verified with patient: Yes Procedure verified with patient: Yes Procedure confirmed with physician and it support engineer: Yes UNIVERSAL PROTOCOL / SAFETY CHECKLIST Procedure to be Performed: cystoscopy Sign In: A Moment of CARE was completed. Personnel directly involved with the procedure wore the appropriate PPE (Personal Protective Equipment). Patient/Surrogate Stated/Verified: PATIENT VERIFIED: Patient name, Date of , Relevant allergies, and The intended procedure Time Out Communication: Intended patient and procedure match the source documents. Consent documented and matches the intended procedure. Sign Out: SIGN OUT: All specimen containers correctly labeled. A urinalysis was performed revealing no evidence of infection. The benefits, risks, alternatives of the cystoscopy procedure and personnel were discussed with the patient. The verbal consent was obtained and the patient agrees to proceed. Procedure: The patient was placed on the procedure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 SUPERVISOR Work Phone: [facility] 08-11-2024 20:40-0400 Body mass index (BMI) [Ratio] 40 kg/m2 Batool Butler MD Work Phone: [facility] 08-11-2024 20:40-0400 Body temperature 98.29 [degF] Batool Butler MD Work Phone: [facility] 08-11-2024 20:40-0400 Body weight 145.15 kg Batool Butler MD Work Phone: [facility] 08-11-2024 20:40-0400 Diastolic blood pressure 84 mm[Hg] Batool Butler MD Work Phone: [facility] 08-11-2024 20:40-0400 Heart rate 63 /min Batool Butler MD Work Phone: [facility] 08-11-2024 20:40-0400 Respiratory rate 16 /min Batool Butler MD Work Phone: [facility] 08-11-2024 20:40-0400 SaO2% (BldA) [Mass fraction] 96 % Batool Butler MD Work Phone: [facility] 08-11-2024 20:40-0400 Systolic blood pressure 127 mm[Hg] Batool Butler MD Work Phone: [facility] 07-05-2024 16:30-0500 Body mass index (BMI) [Ratio] 40 kg/m2 Batool Butler MD Work Phone: [facility] 07-05-2024 16:30-0500 Body temperature 98.4 [degF] Batool Butler MD Work Phone: [facility] 07-05-2024 16:30-0500 Body weight 145.15 kg Batool Butler MD Work Phone: [facility] 07-05-2024 16:30-0500 Diastolic blood pressure 84 mm[Hg] Batool Butler MD Work Phone: [facility] 07-05-2024 16:30-0500 Heart rate 62 /min Batool Butler MD Work Phone: [facility] 07-05-2024 16:30-0500 Respiratory rate 14 /min Batool Butler MD Work Phone: [facility] 07-05-2024 16:30-0500 SaO2% (BldA) [Mass fraction] 95 % Batool Butler MD Work Phone: [facility] 07-05-2024 16:30-0500 Systolic blood pressure 121 mm[Hg] Batool Butler MD Work Phone: [facility] 04-22-2024 09:41-0500 Body height 190.5 cm Jenn Elizalde MD Work Phone: [facility] 04-22-2024 09:41-0500 Body mass index (BMI) [Ratio] 40 kg/m2 Jenn Elizalde MD Work Phone: [facility] 04-22-2024 09:41-0500 Body weight 145.15 kg Jenn Elizalde MD Work Phone: [facility] 04-11-2024 15:01-0500 Body height 190.5 cm Jenn Eilzalde MD Work Phone: [facility] 04-11-2024 15:01-0500 Body mass index (BMI) [Ratio] 37.5 kg/m2 Jenn Elizalde MD Work Phone: [facility] 04-11-2024 15:01-0500 Body weight 136.08 kg Jenn Elizalde MD Work Phone: [facility] 02-08-2024 13:19-0400 Body temperature 98.1 [degF] Batool Butler MD Work Phone: [facility] 02-08-2024 13:19-0400 Diastolic blood pressure 86 mm[Hg] Batool Butler MD Work Phone: [facility] 02-08-2024 13:19-0400 Heart rate 91 /min Batool Butler MD Work Phone: [facility] 02-08-2024 13:19-0400 Respiratory rate 18 /min Batool Butler MD Work Phone: [facility] 02-08-2024 13:19-0400 SaO2% (BldA) [Mass fraction] 95 % Batool Butler MD Work Phone: [facility] 02-08-2024 13:19-0400 Systolic blood pressure 138 mm[Hg] Batool Butler MD Work Phone: [facility] 06-21-2022 08:59-0500 Body temperature 98.6 [degF] Batool Butler MD Work Phone: [facility] 06-21-2022 08:59-0500 Body weight 145.15 kg Batool Butler MD Work Phone: [facility] 06-21-2022 08:59-0500 Diastolic blood pressure 87 mm[Hg] Batool Butler MD Work Phone: [facility] 06-21-2022 08:59-0500 Heart rate 74 /min Batool Butler MD Work Phone: [facility] 06-21-2022 08:59-0500 Respiratory rate 16 /min Batool Butler MD Work Phone: [facility] 06-21-2022 08:59-0500 SaO2% (BldA) [Mass fraction] 98 % Batool Butler MD Work Phone: [facility] 06-21-2022 08:59-0500 Systolic blood pressure 143 mm[Hg] Batool Butler MD Work Phone: [facility] Encounters Encounter Date Encounter Type Care Provider Facility Start: 01-13-2025 ambulatory Adriano Granados Facility :[facility] Start: 12-23-2024 End: 12-23-[address] Toribio Herndon MD -[facility] Start: 12-23-2024 End: 12-23-2024 ambulatory Adriano Granados MD Work Phone: -[facility] Start: 11-12-2024 End: 11-12-[address] Adriano Granados MD -[facility] Work Phone: Start: 11-12-2024 End: 11-12-2024 ambulatory Adriano Granados MD Work Phone: -[facility] Start: 10-24-2024 End: 10-24-2024 Orders Only Skye Pathak COMMERCIAL BAKING TEACHER.BOTTOMING ROOM SUPERVISOR Work Phone: [facility] Comment on above: Rupture of anterior cruciate ligament of left knee, initial encounter (Primary Dx) Start: 10-23-2024 End: 10-23-2024 ambulatory Luda Dunbar PT, DPT [facility] Comment on above: S/P ACL reconstructi on (Primary Dx) Start: 10-17-2024 Encounter for other preprocedural examination [facility] Start: 10-15-2024 End: 10-15-[address] Adriano [facility]ados [facility] Work Phone: Start: 10-15-2024 End: 10-15-2024 ambulatory Adriano Granados MD Work Phone: [facility] Work Phone: Start: 10-02-2024 ambulatory Adriano Granados Facility :[facility] Start: 10-02-2024 End: 10-02-2024 Non-patient / Non-visit Dr. Adriano Granados [facility] Start: 10-02-2024 End: 10-02-2024 Admission to same day surgery center Dr. Adriano [facility]ados [facility] Start: 10-02-2024 End: 10-02-2024 ambulatory Adriano Granados MD Work Phone: [facility] Work Phone: Start: 08-26-2024 End: 08-26-[address] Adriano Granados MD -[facility] Work Phone: Start: 08-26-2024 End: 08-26-2024 ambulatory Adriano Granados Facility:[facility] Start: 08-22-2024 End: 08-22-2024 Patient encounter procedure Skye Pathak COMMERCIAL BAKING TEACHER.BOTTOMING ROOM SUPERVISOR Work Phone: [facility] Comment on above: Rupture of anterior cruciate ligament of left knee, initial encounter (Primary Dx); Acute medial meniscus tear of left knee, initial encounter Start: 08-22-2024 End: 08-22-2024 ambulatory SKYE D DENAEKE Facility:[id number] Start: 08-16-2024 End: 10-16-2024 Follow-up encounter Skye D Goske COMMERCIAL BAKING TEACHER.BOTTOMING ROOM SUPERVISOR Work Phone: [facility] Start: 08-16-2024 End: 08-16-2024 Telephone encounter Skye D Goske COMMERCIAL BAKING TEACHER.BOTTOMING ROOM SUPERVISOR Work Phone: [facility] Comment on above: Results Start: 08-15-2024 ambulatory SKYE D LAWSON Facility: [id number] Start: 08-15-2024 End: 08-15-2024 Subsequent hospital visit by physician [facility] Work Phone: [facility] Comment on above: Rupture of anterior cruciate ligament of left knee, initial encounter [S83.512A] Start: 08-15-2024 End: 08-15-2024 Telephone encounter Skye D Goske COMMERCIAL BAKING TEACHER.BOTTOMING ROOM SUPERVISOR Work Phone: [facility] Comment on above: Orders Start: 08-13-2024 End: 08-13-2024 Patient encounter procedure Skye D Goske COMMERCIAL BAKING TEACHER.BOTTOMING ROOM SUPERVISOR Work Phone: [facility] Comment on above: Rupture of anterior cruciate ligament of left knee, initial encounter (Primary Dx); Quadriceps tendon rupture, left, initial encounter; Acute lateral meniscus tear of left knee, initial encounter Start: 08-13-2024 End: 08-13-2024 ambulatory SKYE D DENAEKE Facility:[id number] Start: 08-12-2024 End: 08-12-2024 Telephone encounter Batool Butler MD Work Phone: [facility] Comment on above: Patient Question (Un able to get in ortho office ) Start: 08-11-2024 End: 08-11-2024 Subsequent hospital visit by physician [facility] Work Phone: [facility] Comment on above: FELL, LEFT KNEE WENT SIDEWAYS Start: 08-11-2024 End: 08-11-2024 Patient encounter procedure Batool Butler MD Work Phone: [facility] Comment on above: Acute pain of left k nee (Primary Dx) Start: 08-11-2024 End: 08-11-2024 ambulatory SELF Facility:[id number] Start: 07-05-2024 End: 07-05-2024 Patient encounter procedure Batool Butler MD Work Phone: [facility] Comment on above: Infected skin lesion (Primary Dx) Start: 07-05-2024 End: 07-05-2024 ambulatory BATOOL BUTLER Facility:[id number] Start: 05-24-2024 End: 05-24-2024 Telephone encounter Jenn Elizalde MD [facility]: [facility] [place] [place] Comment on above: Appointment (LEFT PA TIENT MESSAGE TO CALL AND R/S MISSED POST OP APPOINTMENT) Start: 05-23-2024 End: 05-23-2024 Refill Jenn Elizalde MD Work Phone: [facility] [place] [place] Comment on above: Refill Request Start: 05-19-2024 End: 05-20-2024 Refill Jenn Elizalde MD Work Phone: [facility] [place] Comment on above: Refill Request (Dupl icate for Oxycodone) Start: 05-17-2024 End: 05-17-2024 ambulatory JENN ELIZALDE Facility:[id number] Start: 05-17-2024 End: 05-17-2024 Patient encounter procedure Jenn Elizalde MD Work Phone: [facility] [place] [place] [place] Comment on above: Microscopic hematuri a (Primary Dx) Refill Request Start: 05-14-2024 End: 05-14-2024 Telephone encounter Jenn Elizalde MD Work Phone: [facility] [place] Comment on above: Appointment (Needs p ost op/sánchez out in 10 days) Start: 05-14-2024 End: 05-14-2024 ambulatory OPAL SANDS MD Facility:D Start: 04-22-2024 End: 04-22-2024 Patient encounter procedure Jenn Elizalde MD Work Phone: [facility] [place] Comment on above: Balanitis (Primary D x) Start: 04-22-2024 End: 04-22-2024 ambulatory JENN ELIZALDE Facility:[id number] Start: 04-19-2024 ambulatory JENN ELIZALDE F acility:[id number] Start: 04-19-2024 End: 04-19-2024 Subsequent hospital visit by physician Toya [facility] Work Phone: Radiology CT Scan Comment on above: Microscopic hematuri a [R31.29] Start: 04-13-2024 End: 04-13-2024 ambulatory JENN ELIZALDE Facility:[id number] Start: 04-11-2024 End: 04-11-2024 Patient encounter procedure Jenn Elizalde MD Work Phone: [facility] [place] [facility] [place] Comment on above: Microscopic hematuri a (Primary Dx); Gross hematuria Start: 04-11-2024 End: 04-11-2024 ambulatory JENN ELIZALDE Facility:[id number] Start: 04-10-2024 End: 04-10-2024 Patient encounter procedure Jenn Elizalde MD Work Phone: Urology Comment on above: Microscopic hematuri a [R31.29] (Primary Dx); Gross hematuria Start: 04-10-2024 End: 04-10-2024 ambulatory JENN ELIZALDE Facility:[id number] Start: 02-12-2024 End: 02-12-2024 ambulatory JENN ELIZALDE Facility:[id number] Start: 02-12-2024 End: 02-12-2024 Patient encounter procedure Jenn Elizalde MD Work Phone: [facility] [place] Comment on above: Tysonanitis (Primary D x) Start: 02-09-2024 End: 02-09-2024 Patient encounter procedure Jenn Elizalde MD Work Phone: [facility] [place] Comment on above: Screening for hematu marce or proteinuria [Z13.89] (Primary Dx); Balanitis Start: 02-09-2024 End: 02-09-2024 ambulatory JENN ELIZALDE Facility:[id number] Start: 02-08-2024 End: 02-08-2024 ambulatory SELF Facility:[id number] Start: 02-08-2024 End: 02-08-2024 Patient encounter procedure Batool Butler MD Work Phone: [facility] Comment on above: Infected skin lesion (Primary Dx) Start: 06-21-2022 End: 06-21-2022 Patient encounter procedure Batool Butler MD Work Phone: [facility] Comment on above: Acute otitis media, bilateral (Primary Dx) Start: 01-01-2018 Patient encounter PROVIDER UNKNOWN F acility:[facility] Start: 07-02-2017 End: 07-02-2017 Ambulatory PERICO CHANEL Facility:A Start: 01-14-2017 End: 01-19-2017 Ambulatory S R MARIKA Facility:[facility] [place] Start: 01-14-2017 End: 01-14-2017 Ambulatory S R MARIKA Facility:A Procedures Date Procedure Procedure Detail Performing Clinician Start: 10-23-2024 History of operative procedure on knee S/P ACL reconstruction Luda Dunbar PT, DPT Start: 10-02-2024 Chondrectomy of semilunar cartilage of knee Adriano Granados MD Work Phone: Start: 08-15-2024 Mri any jt lower extrem w/o contrast matrl Skye Pathak COMMERCIAL BAKING TEACHER.BOTTOMING ROOM SUPERVISOR Work Phone: Start: 04-10-2024 Urnls dip stick/tablet rgnt auto w/o microscopy Jenn Elizalde MD Work Phone: Start: 02-09-2024 Urnls dip stick/tablet rgnt auto w/o microscopy Jenn Elizalde MD Work Phone: Plan of Treatment Date Care Activity Detail Author Start: 01-06-2025 Influenza vaccination Influenz a Vaccine (Season Ended) [facility] Start: 12-23-2024 X-ray of knee, four or more views Knee 4 or More Views [facility] Start: 12-23-2024 XR Knee GE 4 Views [facility] Start: 10-02-2024 Patient discharge [facility] Start: 10-02-2024 Application of device [facility] Start: 10-02-2024 Assessment of risk o f venous thromboembolism [facility] Start: 10-02-2024 Catheterization of vein [facility] Start: 10-02-2024 Continuous positive airway pressure ventilation treatment [facility] Start: 10-02-2024 Following clinical pathway protocol [facility] Start: 10-02-2024 Gait training procedure [facility] Start: 10-02-2024 Incentive spirometry [facility] Start: 10-02-2024 Introduction of urin serafin catheter [facility] Start: 10-02-2024 Vital signs measurements [facility] Start: 10-02-2024 End: 10-02-2024 [facility] Start: 10-02-2024 Anes open/surg arthroscopic proc knee joint nos ANESTH KNEE JOINT SURGERY [facility] Start: 10-02-2024 Arthroscopy knee w/meniscus rpr medial&lateral KNEE ARTHROSCOPY/SURGERY [facility] Start: 10-02-2024 Arthrs aided ant cru ciate ligm rpr/agmntj/rcnstj KNEE ARTHROSCOPY/SURGERY [facility] Start: 10-02-2024 Injection aa&/strd o ther peripheral nerve/branch NJX AA&/STRD OTHER PN/BRANCH [facility] Start: 08-22-2024 End: 08-22-2024 Patient encounter procedure 08/22/2024 1:15 PM EDT Office Visit [facility] [address] [facility] [address] [place] [address] Skye Pathak, COMMERCIAL BAKING TEACHER.BOTTOMING ROOM SUPERVISOR [address] [place] [address] MRI RESULTS left knee [facility] Comment on above: MRI RESULTS left kne e Start: 08-15-2024 End: 08-15-2024 Patient encounter procedure 08/15/2024 3:30 PM EDT Appointment [facility] [address] [place] [address] MRI KNEE WO IVCON LEFT (pt to sign afr) [facility] Comment on above: MRI KNEE WO IVCON LE FT (pt to sign afr) Start: 08-13-2024 End: 08-13-2024 Patient encounter procedure 08/13/2024 11:30 AM EDT Office Visit [facility] [facility] [address] [place] [address] Skye Pathak, COMMERCIAL BAKING TEACHER.BOTTOMING ROOM SUPERVISOR [address] [facility] [address] [place] [address] Tank fell on upper Left knee [facility] Comment on above: Tank fell on upper L eft knee Start: 08-11-2024 End: 09-10-2025 XR Knee - left AP and Lateral and oblique [facility] Work Phone: Comment on above: Expected: 08/11/2024 , Expires: 09/10/2025 Start: 05-24-2024 End: 05-24-2024 Patient encounter procedure 05/24/2024 9:20 AM EST Office Visit [facility] [place] [address] [place] [address] Emigdio Pradhan, COMMERCIAL BAKING TEACHER.BOTTOMING ROOM SUPERVISOR [address] [place] [address] POSTOP/REMOVE SÁNCHEZ [facility] [place] Comment on above: POSTOP/REMOVE SÁNCHEZ Start: 04-22-2024 End: 04-22-2024 Patient encounter procedure 04/22/2024 9:45 AM EST [facility] [place] [address] [id number] Jenn Elizalde MD [address] [phone] flow/bus/ov/ct results [facility] [place] [facility] [place] Comment on above: flow/bus/ov/ct resul ts Start: 04-19-2024 End: 04-19-2024 Patient encounter procedure 04/19/2024 6:30 PM EST Appointment Radiology CT Scan [address] [place] [address] Scan Comment on above: ct urogram Start: 04-17-2024 End: 05-11-2025 CT Kidney WO and W contrast IV CT UROGRAM WO/W IVCON Radiology Routine Microscopic hematuria [R31.29] Expected: 04/17/2024, Expires: 05/11/2025 [facility] Comment on above: Expected: 04/17/2024 , Expires: 05/11/2025 Start: 04-17-2024 End: 04-17-2024 Patient encounter procedure 04/17/2024 8:30 AM EST Office Visit Urology [address] [place] [address] Jenn Elizalde MD [address] [phone] [facility] Comment on above: [facility] Start: 04-10-2024 End: 07-10-2024 Prostate specific Ag [Mass/volume] in Serum or Plasma PROSTATE-SPECIFIC ANTIGEN DIAGNOSTIC Lab Routine Microscopic hematuria [R31.29] Expected: 04/10/2024, Expires: 07/10/2024 [facility] Work Phone: Comment on above: Expected: 04/10/2024 , Expires: 07/10/2024 Start: 02-12-2024 End: 02-12-2024 Patient encounter procedure 02/12/2024 8:00 AM EDT Office Visit [facility] [place] [address] [facility] [address] [place] [address] Jenn Elizalde MD [address] [facility] [address] [place] [phone] elizalde f/u [facility] [place] Comment on above: ov per dr elizalde f/u Start: 01-07-2024 Covid-19 Vaccine ( season) Covid-19 Vaccine ( season) [facility] Start: 01-07-2024 Influenza vaccination Influenza Vacc ine (#1) [facility] Start: 05-08-2022 DEPRESSION ASSESSMENT DEPRESSION ASS ESSMENT [facility] Start: 01-06-2022 Influenza vaccination INFLUENZA (#1) [facility] Start: 2020 Lipid panel Lipid Screening [facility] Start: 2020 LIPID SCREEN LIPID SCREEN [facility] Start: 2004 Hepatitis B Vaccine (1 of 3 - 19+ 3-dose series) Hepatitis B Vaccine (1 of 3 - 19+ 3-dose series) [facility] Start: 2004 Urine microalbumin profile [facility] Start: 09-25-2003 Anxiety Screening Anxiety Screening [facility] Start: 09-25-2003 Depression Screening Depression Scre ening [facility] Start: 09-25-2003 HEPATITIS C SCREENING HEPATITIS C [facility] Start: 09-25-2003 Hepatitis C screening Hepatitis C [facility] Start: 09-25-2003 HIV SCREENING HIV SCREENING [facility] Start: 09-25-2003 HIV screening HIV Screening [facility] Start: 09-25-1991 PNEUMOCOCCAL (1 - PCV) PNEUMOCOCCAL (1 - PCV) [facility] Start: 03-27-1986 COVID-19 VACCINE (#1) COVID-19 VACCI NE (#1) [facility] Start: 1985 HEPATITIS B (1 of 3 - 3-dose series) HEPATITIS B (1 of 3 - 3-dose series) [facility] Bacteria identified in Urine by Culture [facility] Work Phone: Comment on above: Ordered: 04/11/2024 BLADDER SCAN BLADDER SCAN Procedures Routine Balanitis Ordered: 04/22/2024 [facility] Work Phone: Comment on above: Ordered: 04/22/2024 Complex uroflometry FLOW RATE Pr ocedures Routine Balanitis Ordered: 04/22/2024 [facility] Comment on above: Ordered: 04/22/2024 CT Kidney WO and W contrast IV CT UROGRAM WO/W IVCON Radiology Routine Microscopic hematuria [R31.29] 04/19/2024 6:34 PM EST [facility] Work Phone: End: 09-12-2025 MR Knee - left WO contrast MRI KNEE WO IVCON LEFT Radiology STAT Rupture of anterior cruciate ligament of left knee, initial encounter Quadriceps tendon rupture, left, initial encounter Acute lateral meniscus tear of left knee, initial encounter 1 Occurrences starting 08/13/2024 until 09/12/2025 [facility] Work Phone: Comment on above: 1 Occurrences starti ng 08/13/2024 until 09/12/2025 MR Lower Extremity Joint [facility] Patient Education ACL Injury Surg [facility] Work Phone: Patient referral [facility] Work Phone: Payers Date Payer Category Payer Private Health Insurance [employer] [id number] 2024 Unknown [id number] 2024 Unknown [id number] 2024 Unknown [id number] 2017 Self-pay 2014 Unknown [id number] 1985 Unknown [id number] Unknown [id number] Unknown [id number] Unknown [id number] Unknown [id number] Unknown [id number] Unknown [id number] Unknown [id number] Unknown [id number] Unknown [id number] Social History Date Type Detail Facility Start: 06-21-2022 End: 09-18-2024 Tobacco smoking status [facility] Smokes tobacco daily [facility] History of tobacco use Cigarette Smoker [facility] Start: 06-21-2022 End: 02-09-2024 Tobacco use and exposure Smokeless tobacco non-user [facility] Start: 1985 Sex Assigned At Not on file C [facility] Start: 02-08-2024 End: 02-09-2024 Tobacco smoking status RIIS Ex-smoker [facility] History of tobacco use Current smoker [facility] Start: 02-08-2024 End: 02-09-2024 History of Social function [facility] Start: 02-08-2024 End: 02-09-2024 Tobacco use panel [facility] Start: 02-09-2024 End: 08-22-2024 Alcoholic beverage intake Ex-drinker (finding) [facility] Campusi armando National Score (1-10 0), lower number is lower risk 44 [facility] Start: 1985 Sex assigned at Male [facility] Start: 04-10-2024 Gender identity Identifies as male gender (finding) [facility] Medical Equipment Procedure Code Equipment Code Equipment Origin al Text Equipment Identifier Dates Arthroscopy, knee, with meniscectomy QUAD LINK TIGHT ROPE FDA Start: 10-02-2024 Arthroscopy, knee, with meniscectomy Soft-tissue/mesh anchor, non-bioabsorbable [id number] FDA Start: 10-02-2024 Arthroscopy, knee, with meniscectomy SECONDARY FIXATION W/BIOCOMPOSITE SWIVELOCK FDA Start: 10-02-2024 Arthroscopy, knee, with meniscectomy Soft-tissue/mesh anchor, non-bioabsorbable [id number] FDA Start: 10-02-2024 Arthroscopy, knee, with meniscectomy QUAD LINK TIGHT ROPE FDA Start: 10-02-2024 Arthroscopy, knee, with meniscectomy SECONDARY FIXATION W/BIOCOMPOSITE SWIVELOCK FDA Start: 10-02-2024 Arthroscopy, knee, with meniscectomy QUAD LINK TIGHT ROPE FDA Start: 10-02-2024 Arthroscopy, knee, with meniscectomy SECONDARY FIXATION W/BIOCOMPOSITE SWIVELOCK FDA Start: 10-02-2024 Arthroscopy, knee, with meniscectomy QUAD LINK TIGHT ROPE FDA Start: 10-02-2024 Arthroscopy, knee, with meniscectomy SECONDARY FIXATION W/BIOCOMPOSITE SWIVELOCK FDA Start: 10-02-2024 Goals Date Patient Goal Desired Activity /State Mental Status Date Assessment Result Facility 10-02-2024 Cognitive function Voice/Name [facility] Work Phone: Clinical Notes 06-21-2022 to 10-23-2024 Luda Dunbar PT, DPT - 10/23/2024 2:14 PM EDLuda Mendez PT DPT - 10/23/2024 1:39 PM EDT Note Date & Type Note Facility 10-23-2024 History of Presen t illness Narrative Program_ID:[id number] Access Code: [email or web address] URL: [email or web address] Date: 10-23-2024 Prepared By: LUDA DUNBAR Program Notes Exercises - Long Sitting Quad Set - 2 x daily - 7 x weekly - 3 sets - 10 reps - Active Straight Leg Raise with Quad Set - 2 x daily - 7 x weekly - 3 sets - 10 reps - Supine Heel Slide with Strap - 1 x daily - 7 x weekly - 3 sets - 10 reps - Sidelying Hip Abduction - 2 x daily - 7 x weekly - 3 sets - 10 reps - Standing Heel Raises - 2 x daily - 7 x weekly - 3 sets - 10 reps Patient Education - ACL Tear Images from the original note were not included. Episode Visit Count: 1 Therapist That Will Accept/Oversee The Plan Of Care: Luda Dunbar PT, DPT Start of Care Date: 10/23/24 Onset Date: 08/11/24 Plan of Care Certification Date: 10/23/24 Next Certification Due Date: 01/01/25 Patient Identified by Name and Date of : Yes REHABILITATION AND SPORTS THERAPY PHYSICAL THERAPY EVALUATION PLAN OF CARE: Assessment: Paris Ramirez presents with diagnosis of s/p left ACL reconstruction and medial and lateral meniscus repair that interferes with standing, walking, rising from a chair, stair negotiation, physical activities, squatting, running, jumping, recreational activities . The patient presents with impairments in ADL's, balance, gait, overall function, range of motion, and strength. PROMIS (Patient-Reported Outcomes Measurement Information System) scores were reviewed and identified as a rehabilitation concern. Prognosis for therapy is Excellent due to: current objective clinical presentation, good overall health status, acuteness of condition, good support system/ coping skills . The patient will benefit from skilled therapy services to meet the goals established for this plan of care as noted below. Goals for Episode of Care: established 10/23/24 Patient reported outcome of pain Interference will decrease T -score by a minimum of 5 points. [place] in home exercise program. Patient will decrease pain rating by 2 points to meet minimal clinical important difference for numeric pain rating scale. Patient will increase active ROM of left knee to 0 to 120 degrees to allow pt to to improve performance of ADLs and to improve gait mechanics / gait pattern . Patient will demonstrate increase in right lower extremity strength to 5/5 during manual muscle testing in order to improve function for prior functional tasks. Normal gait. Reciprocal stair negotiation. Patient Goals: be normal Time Frame for Goals and Treatment : 01/01/25 Planned Interventions, Frequency, and Duration: Current Frequency: 2x/week Duration: 10 weeks Total Number of Visits Planned: 20 Planned Treatment Interventions: Therapeutic exercise (37139), Neuromuscular re-education (72988), Manual therapy (96183), Therapeutic activities (65557), Gait Training (52995), Self-long term management (03909), E-Stim Unattended (07640), E-Stim Attended/TENS (05484), Vasopneumatic Treatment (64674) PLAN FOR NEXT VISIT: HEP review and follow post op protocol Patient demonstrates good understanding of plan of care and treatment. The above goals and plan of care were discussed and agreed upon by patient/family. SUBJECTIVE: Patient reports that he had an ACL reconstruction with a patellar tendon autrograft on 10/02/2024. He initially tore his ACL and medial and lateral menisci on 08/11/2024 when carrying a 400 lb fish tank and his left knee gave out and he fell. He reports that initially he was using bilateral crutches with a hinged knee brace. Today, he presents without crutches and a hinged knee brace locked at 0 degrees when ambulating. Patient follows up with Dr. Granados on 11/12. He reports he's off work until 12/08. 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[employer] Hobbies / Interests: playing with kids, walking Home Environment Equipment Owned: Crutch(es), Cane, Rollator Intake Information: Prescription present Previous Treatment: Surgery , Immobilizer/brace , Ice (Tylenol and Aspirin prn) Falls Interview: Fall with injury in the last year Pain: Pain Pain Level: (shooting pains at times below patella) Pain Location: Knee - Left Description: Shooting Frequency: Intermittent Post Treatment Pain Post Treatment Pain Level: No Change PROMIS Scales 10/23/2024 08/12/2024 Higher is Better Phys Func - T Score 43 (mild dysfunction) 35 (moderate dysfunction) Phys Func - Percentile 24 7 Self-Eff Symptom - T Score 49 (Average) Self-Eff Symptom - Percentile 46 T-scores: mean of general population = 50. 5 points is clinically meaningfully difference Percentiles provide an indication of how the patient's score ranks in relation to the general population. Higher percentile rankings indicate better function/quality of life. 50th percentile is the average of the general population and indicates half of respondents had a worse score. OBJECTIVE MEASURES WITH LEVEL OF FUNCTION: LE PROM R Knee Extension: 0 Degrees R Knee Flexion: 135 Degrees L Knee Extension: 0 Degrees L Knee Flexion: 90 Degrees LE Strength R LE Strength: 5/5 L LE Strength: NT Gait Gait: Modified Independent Gait Distance (feet): 150 Gait Deviations: Left Lower Extremity Gait Deviations Left Lower Extremity: Circumduction, Foot clearance decreased Education: Education Learning Preferences: Demonstration, Explanation, Performance, Printed Materials Barriers: None Learning/educational needs: Home exercise program, Plan of Care, Changes in Plan of Care, Gait Training Education Provided: Yes, see treatment interventions for education provided Education Provided To: Patient Education Mode/Type: Demonstration, Explanation/Discussion, Literature/Printed Materials, Performance Response to Education/Teach Back: States/Identifies, Return Demonstration TREATMENT: PT Treatment Interventions: Self-[facility] Management Evaluation Evaluation Self-[facility] Management: 1: HEP instruction Skilled Intervention: Skilled judgment in the selection of proper modification for activity of daily living/home management based on clinical presentation, deficits, and needs. Provided written instruction for activities of daily living techniques to facilitate proper performance and compliance. Home Exercise Program Assigned: 1: Quad sets 2: SLR with brace locked at 0 degrees 3: PROM heel slides 0 to 90 deg 4: Standing heel raises with brace 5: Sidelying hip abduction with brace Billing * Evaluation Low Complexity: 1 Unit Self-Care/Home Management Treatment Minutes: 10 Skilled Treatment Time Minutes (timed and untimed codes): 45 Total Session Time (minutes): 45 Session Start Time : 1330 Session Stop Time : 1415 Luda Dunbar PT DPT documented in this encounter [facility] 10-23-2024 Note HNO ID: [id number] Author: LUDA DUNBAR PT, DPT Service: ? Author Type: Physical Therapist Type: Progress Notes Filed: 10/23/2024 15:03 Note Text: Episode Visit Count: 1 Therapist That Will Accept/Oversee The Plan Of Care: Luda Dunbar PT, DPT Start of Care Date: 10/23/24 Onset Date: 08/11/24 Plan of Care Certification Date: 10/23/24 Next Certification Due Date: 01/01/25 Patient Identified by Name and Date of : Yes REHABILITATION AND SPORTS THERAPY PHYSICAL THERAPY EVALUATION PLAN OF CARE: Assessment: Paris Ramirez presents with diagnosis of s/p left ACL reconstruction and medial and lateral meniscus repair that interferes with standing, walking, rising from a chair, stair negotiation, physical activities, squatting, running, jumping, recreational activities . The patient presents with impairments in ADL's, balance, gait, overall function, range of motion, and strength. PROMIS? (Patient-Reported Outcomes Measurement Information System) scores were reviewed and identified as a rehabilitation concern. Prognosis for therapy is Excellent due to: current objective clinical presentation, good overall health status, acuteness of condition, good support system/ coping skills . The patient will benefit from skilled therapy services to meet the goals established for this plan of care as noted below. Goals for Episode of Care: established 10/23/24 Patient reported outcome of pain Interference will decrease T -score by a minimum of 5 points. [place] in home exercise program. Patient will decrease pain rating by 2 points to meet minimal clinical important difference for numeric pain rating scale. Patient will increase active ROM of left knee to 0 to 120 degrees to allow pt to to improve performance of ADLs and to improve gait mechanics / gait pattern . Patient will demonstrate increase in right lower extremity strength to 5/5 during manual muscle testing in order to improve function for prior functional tasks. Normal gait. Reciprocal stair negotiation. Patient Goals: be normal Time Frame for Goals and Treatment : 01/01/25 Planned Interventions, Frequency, and Duration: Current Frequency: 2x/week Duration: 10 weeks Total Number of Visits Planned: 20 Planned Treatment Interventions: Therapeutic exercise (12969), Neuromuscular re-education (03378), Manual therapy (25021), Therapeutic activities (40329), Gait Training (23443), Self-long term management (93249), E-Stim Unattended (41057), E-Stim Attended/TENS (72031), Vasopneumatic Treatment (68726) PLAN FOR NEXT VISIT: HEP review and follow post op protocol Patient demonstrates good understanding of plan of care and treatment. The above goals and plan of care were discussed and agreed upon by patient/family. SUBJECTIVE: Patient reports that he had an ACL reconstruction with a patellar tendon autrograft on 10/02/2024. He initially tore his ACL and medial and lateral menisci on 08/11/2024 when carrying a 400 lb fish tank and his left knee gave out and he fell. He reports that initially he was using bilateral crutches with a hinged knee brace. Today, he presents without crutches and a hinged knee brace locked at 0 degrees when ambulating. Patient follows up with Dr. Granados on 11/12. He reports he's off work until 12/08. 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[employer] Hobbies / Interests: playing with kids, walking Home Environment Equipment Owned: Crutch(es), Cane, Rollator Intake Information: Prescription present Previous Treatment: Surgery , Immobilizer/brace , Ice (Tylenol and Aspirin prn) Falls Interview: Fall with injury in the last year Pain: Pain Pain Level: (shooting pains at times below patella) Pain Location: Knee - Left Description: Shooting Frequency: Intermittent Post Treatment Pain Post Treatment Pain Level: No Change PROMIS Scales 10/23/2024 08/12/2024 Higher is Better Phys Func - T Score 43 (mild dysfunction) 35 (moderate dysfunction) Phys Func - Percentile 24 7 Self-Eff Symptom - T Score 49 (Average) Self-Eff Symptom - Percentile 46 T-scores: mean of general population = 50. 5 points is clinically meaningfully difference Percentiles provide an indication of how the patient's score ranks in relation to the general population. Higher percentile rankings indicate better function/quality of life. 50th percentile is the average of the general population and indicates half of respon (more content not included)... [facility] 10-02-2024 Consult note [facility] 10-02-2024 Discharge summary [facility] 10-02-2024 Procedure note [facility] 10-02-2024 Consult note Note Date/Time October 02, 2024 12:54pm [facility] Medical Records Department [address] [place] [address] Pre-Anesthesia Evaluation 10/02/24 1250 MR#: [id number] Acct: [id number] Name: PARIS RAMIREZ Rep #:[id number] : 1985 39 From: Mateo BEY PCP: Care Physician,No Primary Status :REG SDC Y Race: C Location: [place] [address] ASA Classification* ASA Classification ASA Classification: 1 Assessment & Plan Anesthesia* Anesthesia Assessment Anesthesia Assessment: Discussed sedation and/or anesthesia options, risks, benefits, and alternatives with patient/parents/legal guardian/POA. Questions invited. The patient/parents/legal guardian/POA seems to understand and agrees to proceedwith anesthesia plan. Reviewed the physical assessment, medical history, allergy history and patient home medications list prior to surgery/procedure/anesthetic and documented any changes. Performed airway and anesthesia risk assessments. Anesthesia Type Anesthesia Type: General and Block (Femoral and Popliteal) History Source History Obtained from:: Patient and Chart Anesthesia Focused Assessment* Temperature: 97.3 F Pulse Rate: 60 Blood Pressure: 108/70 Respiratory Rate: 18 Pulse Ox: 100 Oxygen Delivery Method: Room Air Airway Assessment Mouth opens: >3 cm Mallampati Score: II Teeth Condition: Intact Neck Range of motion (ROM): Full ROM Focused Labs Anesthesia Preop lab: CBC WBC Pending 10/02/24 12:10/02/24 RBC Pending 10/02/24 12:10/02/24 Hgb Pending 10/02/24 12:10/02/24 Hct Pending 10/02/24 12:10/02/24 Plt Count Pending 10/02/24 12:10/02/24 CHEMISTRY COAG Pre-Assessment Diagnosis/Proposed Procedure Planned Operative Procedure(s): LEFT KNEE ARTHROSCOPY ACL RECONSTRUCTION QUADRICEP TENDON AUTOGRAFT MEDIAL MENISCUS REPAIR POSS PARTIAL MENISECTOMY Anesthesia History Anesthesia History - repairer: Anesthesia History - repairer Hx Hospitalization No 09/18/24 10:25 Any Problems With Anesthesia No 09/18/24 10:25 Cholinesterase deficiency No 09/18/24 10:25 You/Your Family Experience No 09/18/24 10:25 fever (hyperthermia) with Relationship Recent Exposure to Contagious No 10/02/24 12:15 Disease Does patient have nerve No 09/18/24 10:25 stimulator Patient instructed to have device shut off --Does patient have Pacemaker No 10/02/24 12:16 or ICD? When Was Last Pacemaker Check QUESTION #4 FULL TEXT: You/Your Family Experience fever (hyperthermia) with Anesthesia Last Oral Intake Last Oral intake: Last Oral Intake NPO since 07:00 10/02/24 12:16 Meds taken in AM with sips of No 10/02/24 12:16 water? Meds patient instructed to take am of surgery PONV PONV - repairer: PONV - repairer Female No 09/18/24 10:25 HX of Motion Sickness No 09/18/24 10:25 HX of N/V After Surgery No 09/18/24 10:25 Non-Smoker No 09/18/24 10:25 Duration of Surgery greater Yes 09/18/24 10:25 than 60 minutes Number of Risk Factors 1 09/18/24 10:25 PONV Score Low Risk 09/18/24 10:25 Height & Weight Height & Weight: Anesthesia: Height & Weight Height 6 ft 3 in 10/02/24 12:16 Weight: 124.466 kg 10/02/24 12:16 Body Mass Index (BMI) 34.2 10/02/24 12:16 Respiratory Assessment Respiratory Assessment - repairer: Respiratory Tract Infection Hx - repairer Hx Respiratory Tract Infection No 09/18/24 10:25 STOP Sleep Apnea STOP Sleep Apnea - repairer: STOP Sleep Apnea - repairer Hx Hypertension No 09/18/24 10:25 Hx Sleep Apnea No 09/18/24 10:25 CPAP BIPAP Do you snore loudly (louder Yes 09/18/24 10:25 than talking or can be heard Do you often feel tired/ No 09/18/24 10:25 fatigued/ sleepy during daytime? Has anyone observed you stop No 09/18/24 10:25 breathing during sleep? STOP Results Negative 09/18/24 10:25 QUESTION #5 FULL TEXT : Do you snore loudly (louder than talking or can be heard through closed doors)? Tobacco Use History Tobacco Use History - repairer: Tobacco Use History - repairer Tobacco Use Smoking Status Current every day smoker 09/18/24 10:25 Hx Tobacco Use Yes 09/18/24 10:25 Years Smoking Packs Smoked per Day Smoking Cessation Date was within the last 15 years Hx Smoking Cessation Date Hx Smoking Cessation Counseling Hematologic Medial History Hematologic Hx - repairer: Hematologic Medical Hx - documentation writer Hx of Blood Transfusion No 09/18/24 10:25 Hx of Transfusion in last 3 No 09/18/24 10:25 Months Date of Last Transfusion (if within last 3 months) Ever experience any problems No 09/18/24 10:25 with transfusion(s)? Specify any problems Hx of Preganancy in last 3 N/A 09/18/24 10:25 Months Nurse Filling Out Transfusion DSCHRIBER 09/18/24 10:25 & Questions: Date: 09/18/24 09/18/24 10:25 Time: 10:27 09/18/24 10:25 Patient unable to answer at this time (ie. confused, unrespo /Reproduction History /Reproductive History - repairer: /Reproductive Hx- repairer Hx Now No 09/18/24 10:25 Gestational Age (in weeks): EDC: Hx Hx Para Hx Section SAB No 09/18/24 10:25 Active Medications Active Medications: Current Medications Generic Name Dose Route Start Last Admin Trade Name Freq PRN Reason Stop Dose Admin Cefazolin Sodium 3 gm/ Sodium 115 mls @ 150 mls/hr 10/02/24 13:20 Chloride IV 10/02/24 14:05 INTRAOP ONE Lactated Ringer's 1,000 mls @ 15 mls/hr 10/02/24 11:45 10/02/24 12:30 IV 15 mls/hr .Q48H MICA Administration PFSH Medical History (Updated 09/18/24 @ 10:32 by Niki Guidry) Wears contact lenses Wears glasses Uses crutches Vapes nicotine containing substance Shortness of breath on exertion History of pain when walking History of edema Hx of urethral stricture MCL sprain of left knee Effusion, left knee Tear of medial meniscus of left knee Left ACL tear Left knee pain Right knee pain Home Medications ?Medication ?Instructions ?Recorded ?Last Taken ?Type tirzepatide (weight loss) 5 mg/0.5 5 mg subcut SA 09/0509/25/24 History mL subcutaneous pen injector (Zepbound) Allergy/AdvReac Type Severity Reaction Status Date / Time No Known Allergies Allergy Verified 09/18/24 10:21 Family History Mother No problems noted. Father No problems noted. Grandmother No problems noted. Grandfather No problems noted. Social History Smoking Status: Never smoker alcohol intake: never Review of Systems (Anesthesia) ROS Narrative System reviewed and no additional complaints, except as documented. 10/02/24 1254 <Electronically signed by Mateo Hector CRNA> Date _ Mateo Hector [employer]PANDER Cosigner Signature: Date CC: ~ Signed [facility] Work Phone: 1(338) 416-287105-28-2025 History and physical note Author Adriano Granados [facility] Note Date/Time October 02, 2024 12:46 pm [facility] Medical Records Department [address] [place] [address] History & Physical Exam 10/02/24 1237 MR#: [id number] Acct: [id number] Name: PARIS RAMIREZ Rep #:[id number] : 1985 39 From: Adriano Granados MD PCP: Care Physician,No Primary Status :[facility] Location: [place] [address] HPI - General HPI Narrative PARIS RAMIREZ, is a 39 M who presents for left knee anterior cruciate ligament reconstruction quadriceps tendon autograft, medial meniscus repair possible partial meniscectomy. No changes to history and physical exam. Left knee marked. Risks alternatives benefits as well as postoperative instructions and narcotic counseling given. The patient understands no further questions and wishes to proceed. MR#: [id number] Acct: [id number] Name: PARIS RAMIREZ Rep #: [id number] : 1985 Provider: Dr. Adriano Granados MD Age/Sex: 38/M Location: [facility] [place] Status: Signed Intake Vital Signs 08/26/2513:18 Height 6 ft 3 in Weight: 290 lb BMI 36.2 Intake Visit Reasons: RIGHT KNEE Chief Complaint: Left knee pain Accompanied by: Self Is patient in pain?: Yes Pain scale (1-10): 7 Allergies No Known Allergies Allergy (Unverified 08/26/24 14:21) Medications ?Medication ?Instructions ?Recorded ?Confirmed ?Type NK 08/26/24 08/26/24 History Have you fallen in the past year?: Yes [facility] Medical History (Updated 08/26/24 @ 14:47 by Adriano Granados MD) MCL sprain of left knee Effusion, left knee Tear of medial meniscus of left knee Left ACL tear Left knee pain Right knee pain Family History Mother No problems noted. Father No problems noted. Grandmother No problems noted. Grandfather No problems noted. Social History Smoking Status: Never smoker alcohol intake: never HPI RIGHT KNEE Details: This documentation accurately reflects the service provided and the decisions made by me, Dr. Adriano Granados MD 08/26/24 9013. Part of today?s visit was documented by [ ], acting as scribe. PARIS RAMIREZ is a 38 year old M here today for left knee pain. Referred for meniscus tear. a week-two weeks ago carrying a fish tank twisted the knee. usinga brace. not a work injury. 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 feels unstable. swells right away, multiple pops. Supplemental Info Left (report states right though) knee MRI demonstrates complete ACL tear. longitudinal tear in the peripheral one third of the posterior horn of the medial meniscus grade 2-3 sprain MCL. small subchondral fracture medial tibia plateau posteriorly. large joint effusion. Pending the actual report this was taken from [employer]. Review of the MRI scanned into PACS. I independently reviewed the imaging. Concur with radiologist report. Coding Level of Care Code Off vis,new,level 4 Diagnoses Left knee pain M25.562 Left ACL tear S83.512A Tear of medial meniscus of left knee S83.242A Effusion, left knee M25.462 MCL sprain of left knee S83.412A Assessment and Plan Assessment and Plan (1) Left knee pain: Status: Acute Plan: 38-year-old man with an acute left ACL tear and medial meniscus tear. The patient also has a moderate grade sprain of the MCL at the proximal origin thesetend to heal well with nonoperative management. That being said I went over thepros and cons risks and benefits of both conservative management nonoperative care versus surgical reconstruction. The patient wished to go ahead with surgery the patient is relatively young with good cartilage as well as physically demanding job. Without surgery the patient would likely have knee instability and high risk for long-term osteoarthritis damage to cartilage and further meniscus tears and injuries. Patient understands wishes to go ahead with surgery in the form of left knee anterior cruciate ligament reconstruction quadriceps tendon autograft, medial meniscus repair possible partial meniscectomy. Specific risks of surgery like repeat tear 5% fractures damage toother intra-articular structures VTE from time on crutches with the brace 6 weeks after surgery and other risks. He understands the risks wishes to proceedsigned the form for today we will try to get this on as soon as possible. Full recovery before going back to pivoting and twisting and other very difficult demanding things on the knee would be 9 months. Pros and cons risks and benefits were discussed with the patient including but not limited to infection, pain, stiffness, bleeding, damage to surrounding structures, neurovascular injury, recurrence or retear, failure or wear of hardware or fixation, instability, fracture, deep vein thrombosis and pulmonary embolism, anesthetic risks, , patient dissatisfaction, need for further surgery and other risks. Patient understood and wished to proceed with surgery,and signed the informed consent documentation. (2) Left ACL tear: Status: Acute (3) Tear of medial meniscus of left knee: Status: Acute (4) Effusion, left knee: Status: Acute (5) MCL sprain of left knee: Status: Acute Clinical Quality Measures Falls Risk Screening/Assistive Devices Have you fallen in the past year?: Yes Ortho Exam General General: Yes no acute distress Neurologic: Yes alert and Yes oriented x3 Psychologic: Yes reasonable and appropriate Right Knee Skin/Wound: Yes CDI, No erythema, No ecchymosis and Yes swelling 1+: Effusion Examination: Yes Med jt line tenderness, No Lat jt line tenderness, No TTP inf pole patella, No Crepitus, Yes Pain with flexion, Yes Yesica's Test, No TTP Patellar tendon, No TTP Tibial tubercle, No TTP Pes Anserine and No Illiotibial band tenderness Quad Atrophy: No Stability: NML: Posterior Drawer, NML: Valgus 0, NML: Varus 0 and NML: Varus 30,1+: Frandy and 1+: Valgus 30 and 2+: Anterior Drawer Patella Translation: 2 Apprehension with Lateral Translation: No Patellar Tilt Normal: Yes Patella Grind: No KNEE: NVI, antalgic gait, normal alignment, rom 0-50, refuses further. able to SLR. Left Knee Patella Translation: 2 [facility] Medical History (Updated 09/18/24 @ 10:32 by Niki Guidry) Wears contact lenses Wears glasses Uses crutches Vapes nicotine containing substance Shortness of breath on exertion History of pain when walking History of edema Hx of urethral stricture MCL sprain of left knee Effusion, left knee Tear of medial meniscus of left knee Left ACL tear Left knee pain Right knee pain Home Medications ?Medication ?Instructions ?Recorded ?Last Taken ?Type tirzepatide (weight loss) 5 mg/0.5 5 mg subcut SA 09/0509/25/24 History mL subcutaneous pen injector (Zepbound) Allergy/AdvReac Type Severity Reaction Status Date / Time No Known Allergies Allergy Verified 09/18/24 10:21 Family History Mother No problems noted. Father No problems noted. Grandmother No problems noted. Grandfather No problems noted. Social History Smoking Status: Never smoker alcohol intake: never Vital Signs Vital Signs Vital Signs: 10/02/24 12:15 10/02/24 12:16 Temperature 97.3 F L Temperature Source Temporal Pulse Rate 60 Respiratory Rate 18 Respiratory Pattern Normal Blood Pressure 108/70 Blood Pressure Mean 82 Blood Pressure Source Monitor Blood Pressure Position Semi-Fowlers Blood Pressure Location Right Arm Pulse Ox 100 Oxygen Delivery Method Room Air Weight Weight: 274 lb 6.4 oz Body Mass Index (BMI) 34.2 Results Lab / Micro Data 10/02/24 12:29 10/02/24 1246 <Electronically signed by Adriano Granados MD> Cosigner Signature (if applicable): CC: Dr. Adriano Granados MD; No Primary Care Physician~ Signed [facility] Work Phone: [phone] 906-316405-28-2025 Consult note [facility] Medical Records Department [address] [place] [address] Pre-Anesthesia Evaluation 10/02/24 1250 MR#: [id number] Acct: [id number] Name: PARIS RAMIREZ Rep #:[id number] : 1985 39 From: Mateo BEY PCP: Care Physician,No Primary Status :REG SDC Y Race: C Location: [place] [address] ASA Classification* ASA Classification ASA Classification: 1 Assessment & Plan Anesthesia* Anesthesia Assessment Anesthesia Assessment: Discussed sedation and/or anesthesia options, risks, benefits, and alternatives with patient/parents/legal guardian/POA. Questions invited. The patient/parents/legal guardian/POA seems to understand and agrees to proceedwith anesthesia plan. Reviewed the physical assessment, medical history, allergy history and patient home medications list prior to surgery/procedure/anesthetic and documented any changes. Performed airway and anesthesia risk assessments. Anesthesia Type Anesthesia Type: General and Block (Femoral and Popliteal) History Source History Obtained from:: Patient and Chart Anesthesia Focused Assessment* Temperature: 97.3 F Pulse Rate: 60 Blood Pressure: 108/70 Respiratory Rate: 18 Pulse Ox: 100 Oxygen Delivery Method: Room Air Airway Assessment Mouth opens: >3 cm Mallampati Score: II Teeth Condition: Intact Neck Range of motion (ROM): Full ROM Focused Labs Anesthesia Preop lab: CBC WBC Pending 10/02/24 12:29 10/02/24 RBC Pending 10/02/24 12:29 10/02/24 Hgb Pending 10/02/24 12:29 10/02/24 Hct Pending 10/02/24 12:29 10/02/24 Plt Count Pending 10/02/24 12:29 10/02/24 CHEMISTRY COAG Pre-Assessment Diagnosis/Proposed Procedure Planned Operative Procedure(s): LEFT KNEE ARTHROSCOPY ACL RECONSTRUCTION QUADRICEP TENDON AUTOGRAFTMEDIAL MENISCUS REPAIR POSS PARTIAL MENISECTOMY Anesthesia History Anesthesia History - repairer: Anesthesia History - repairer Hx Hospitalization No 09/18/24 10:25 Any Problems With Anesthesia No 09/18/24 10:25 Cholinesterase deficiency No 09/18/24 10:25 You/Your Family Experience No 09/18/24 10:25 fever (hyperthermia) with Relationship Recent Exposure to Contagious No 10/02/24 12:15 Disease Does patient have nerve No 09/18/24 10:25 stimulator Patient instructed to have device shut off --Does patient have Pacemaker No 10/02/24 12:16 or ICD? When Was Last Pacemaker Check QUESTION #4 FULL TEXT: You/Your Family Experience fever (hyperthermia) with Anesthesia Last Oral Intake Last Oral intake: Last Oral Intake NPO since 07:00 10/02/24 12:16 Meds taken in AM with sips of No 10/02/24 12:16 water? Meds patient instructed to take am of surgery PONV PONV - repairer: PONV - repairer Female No 09/18/24 10:25 HX of Motion Sickness No 09/18/24 10:25 HX of N/V After Surgery No 09/18/24 10:25 Non-Smoker No 09/18/24 10:25 Duration of Surgery greater Yes 09/18/24 10:25 than 60 minutes Number of Risk Factors 1 09/18/24 10:25 PONV Score Low Risk 09/18/24 10:25 Height & Weight Height & Weight: Anesthesia: Height & Weight Height 6 ft 3 in 10/02/24 12:16 Weight: 124.466 kg 10/02/24 12:16 Body Mass Index (BMI) 34.2 10/02/24 12:16 Respiratory Assessment Respiratory Assessment - repairer: Respiratory Tract Infection Hx - repairer Hx Respiratory Tract Infection No 09/18/24 10:25 STOP Sleep Apnea STOP Sleep Apnea - repairer: STOP Sleep Apnea - repairer Hx Hypertension No 09/18/24 10:25 Hx Sleep Apnea No 09/18/24 10:25 CPAP BIPAP Do you snore loudly (louder Yes 09/18/24 10:25 than talking or can be heard Do you often feel tired/ No 09/18/24 10:25 fatigued/ sleepy during daytime? Has anyone observed you stop No 09/18/24 10:25 breathing during sleep? STOP Results Negative 09/18/24 10:25 QUESTION #5 FULL TEXT : Do you snore loudly (louder than talking or can be heard through closeddoors)? Tobacco Use History Tobacco Use History - repairer: Tobacco Use History - repairer Tobacco Use Smoking Status Current every day smoker 09/18/24 10:25 Hx Tobacco Use Yes 09/18/24 10:25 Years Smoking Packs Smoked per Day Smoking Cessation Date was within the last 15 years Hx Smoking Cessation Date Hx Smoking Cessation Counseling Hematologic Medial History Hematologic Hx - repairer: Hematologic Medical Hx - documentation writer Hx of Blood Transfusion No 09/18/24 10:25 Hx of Transfusion in last 3 No 09/18/24 10:25 Months Date of Last Transfusion (if within last 3 months) Ever experience any problems No 09/18/24 10:25 with transfusion(s)? Specify any problems Hx of Preganancy in last 3 N/A 09/18/24 10:25 Months Nurse Filling Out Transfusion DSCHRIBER 09/18/24 10:25 & Questions: Date: 09/18/24 09/18/24 10:25 Time: 10:27 09/18/24 10:25 Patient unable to answer at this time (ie. confused, unrespo /Reproduction History /Reproductive History - repairer: /Reproductive Hx- repairer Hx Now No 09/18/24 10:25 Gestational Age (in weeks): EDC: Hx Hx Para Hx Section SAB No 09/18/24 10:25 Active Medications Active Medications: Current Medications Generic Name Dose Route Start Last Admin Trade Name Freq PRN Reason Stop Dose Admin Cefazolin Sodium 3 gm/ Sodium 115 mls @ 150 mls/hr 10/02/24 13:20 Chloride IV 10/02/24 14:05 INTRAOP ONE Lactated Ringer's 1,000 mls @ 15 mls/hr 10/02/24 11:45 10/02/24 12:30 IV 15 mls/hr .Q48H MICA Administration PFSH Medical History (Updated 09/18/24 @ 10:32 by Niki Guidry) Wears contact lenses Wears glasses Uses crutches Vapes nicotine containing substance Shortness of breath on exertion History of pain when walking History of edema Hx of urethral stricture MCL sprain of left knee Effusion, left knee Tear of medial meniscus of left knee Left ACL tear Left knee pain Right knee pain Home Medications ?Medication ?Instructions ?Recorded ?Last Taken ?Type tirzepatide (weight loss) 5 mg/0.5 5 mg subcut SA 09/0509/25/24 History mL subcutaneous pen injector (Zepbound) Allergy/AdvReac Type Severity Reaction Status Date / Time No Known Allergies Allergy Verified 09/18/24 10:21 Family History Mother No problems noted. Father No problems noted. Grandmother No problems noted. Grandfather No problems noted. Social History Smoking Status: Never smoker alcohol intake: never Review of Systems (Anesthesia) ROS Narrative System reviewed and no additional complaints, except as documented. 10/02/24 1254 SLAG EXPANDER> Date _ Mateo Onton [employer] EXPANDER Cosigner Signature: Date CC: ~ Signed [facility]05-28-2025 History and physical note [facility] Medical Records Department [address] [place] [id number] History & Physical Exam 10/02/24 1237 MR#: [id number] Acct: [id number] Name: PARIS RAMIREZ Rep #:[id number] : 1985 39 From: Adriano Granados MD PCP: Care Physician,No Primary Status :[facility] Location: [place] [address] HPI - General HPI Narrative PARIS RAMIREZ, is a 39 M who presents for left knee anterior cruciate ligament reconstruction quadriceps tendon autograft, medial meniscus repair possible partial meniscectomy. No changes to history and physical exam. Left knee marked. Risks alternatives benefits as well as postoperative instructions and narcotic counseling given. The patient understands no further questions and wishes to proceed. MR#: [id number] Acct: [id number] Name: PARIS RAMIREZ Rep #: [id number] : 1985 Provider: Dr. Adriano Granados MD Age/Sex: 38/M Location: [facility] [place] Status: Signed Intake Vital Signs 08/26/2513:18 Height 6 ft 3 in Weight: 290 lb BMI 36.2 Intake Visit Reasons: RIGHT KNEE Chief Complaint: Left knee pain Accompanied by: Self Is patient in pain?: Yes Pain scale (1-10): 7 Allergies No Known Allergies Allergy (Unverified 08/26/24 14:21) Medications ?Medication ?Instructions ?Recorded ?Confirmed ?Type NK 08/26/24 08/26/24 History Have you fallen in the past year?: Yes [facility] Medical History (Updated 08/26/24 @ 14:47 by Adriano Granados MD) MCL sprain of left knee Effusion, left knee Tear of medial meniscus of left knee Left ACL tear Left knee pain Right knee pain Family History Mother No problems noted. Father No problems noted. Grandmother No problems noted. Grandfather No problems noted. Social History Smoking Status: Never smoker alcohol intake: never HPI RIGHT KNEE Details: This documentation accurately reflects the service provided and the decisions made by me, Dr. Johnathan MD 08/26/24 2932. Part of today?s visit was documented by [ ], acting as scribe. PARIS RAMIREZ is a 38 year old M here today for left knee pain. Referred for meniscus tear. a week-two weeks ago carrying a fish tank twisted the knee. usinga brace. not a work injury. 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 feels unstable. swells right away, multiple pops. Supplemental Info Left (report states right though) knee MRI demonstrates complete ACL tear. longitudinal tear in theperipheral one third of the posterior horn of the medial meniscus grade 2-3 sprain MCL. small subchondral fracture medial tibia plateau posteriorly. large joint effusion. Pending the actual report this was taken from [employer]. Review of the MRI scanned into PACS. I independently reviewed the imaging. Concur with radiologist report. Coding Level of Care Code Off vis,new,level 4 Diagnoses Left knee pain M25.562 Left ACL tear S83.512A Tear of medial meniscus of left knee S83.242A Effusion, left knee M25.462 MCL sprain of left knee S83.412A Assessment and Plan Assessment and Plan (1) Left knee pain: Status: Acute Plan: 38-year-old man with an acute left ACL tear and medial meniscus tear. The patient also has a moderate grade sprain of the MCL at the proximal origin thesetend to heal well with nonoperative management. That being said I went over thepros and cons risks and benefits of both conservative management nonoperative care versus surgical reconstruction. The patient wished to go ahead with surgery the patient is relatively young with good cartilage as well as physically demanding job. Without surgery the patient would likely have knee instability and high risk for long-term osteoarthritis damage to cartilage and further meniscus tears and injuries. Patient understands wishes to go ahead with surgery in the form of left knee anterior cruciate ligament reconstruction quadriceps tendon autograft, medial meniscus repair possible partial meniscectomy. Specific risks of surgery like repeat tear 5% fractures damage toother intra-articular structures VTE from time on crutches with the brace 6 weeks after surgery and other risks. He understands the risks wishes to proceedsigned the form for today we will try to get this on as soon as possible. Full recovery before going back to pivoting and twisting and other very difficult demanding things on the knee would be 9 months. Pros and cons risks and benefits were discussed with the patient including but not limited to infection, pain, stiffness, bleeding, damage to surrounding structures, neurovascular injury, recurrence or retear, failure or wear of hardware or fixation, instability, fracture, deep vein thrombosis and pulmonary embolism, anesthetic risks, , patient dissatisfaction, need for further surgery and other risks. Patient understood and wished to proceed with surgery,and signed the informed consent documentation. (2) Left ACL tear: Status: Acute (3) Tear of medial meniscus of left knee: Status: Acute (4) Effusion, left knee: Status: Acute (5) MCL sprain of left knee: Status: Acute Clinical Quality Measures Falls Risk Screening/Assistive Devices Have you fallen in the past year?: Yes Ortho Exam General General: Yes no acute distress Neurologic: Yes alert and Yes oriented x3 Psychologic: Yes reasonable and appropriate Right Knee Skin/Wound: Yes CDI, No erythema, No ecchymosis and Yes swelling 1+: Effusion Examination: Yes Med jt line tenderness, No Lat jt line tenderness, No TTP inf pole patella, No Crepitus, Yes Pain with flexion, Yes Yesica's Test, No TTP Patellar tendon, No TTP Tibial tubercle, No TTP Pes Anserine and No Illiotibial band tenderness Quad Atrophy: No Stability: NML: Posterior Drawer, NML: Valgus 0, NML: Varus 0 and NML: Varus 30,1+: Frandy and 1+:Valgus 30 and 2+: Anterior Drawer Patella Translation: 2 Apprehension with Lateral Translation: No Patellar Tilt Normal: Yes Patella Grind: No KNEE: NVI, antalgic gait, normal alignment, rom 0-50, refuses further. able to SLR. Left Knee Patella Translation: 2 [facility] Medical History (Updated 09/18/24 @ 10:32 by Niki Guidry) Wears contact lenses Wears glasses Uses crutches Vapes nicotine containing substance Shortness of breath on exertion History of pain when walking History of edema Hx of urethral stricture MCL sprain of left knee Effusion, left knee Tear of medial meniscus of left knee Left ACL tear Left knee pain Right knee pain Home Medications ?Medication ?Instructions ?Recorded ?Last Taken ?Type tirzepatide (weight loss) 5 mg/0.5 5 mg subcut SA 09/0509/25/24 History mL subcutaneous pen injector (Zepbound) Allergy/AdvReac Type Severity Reaction Status Date / Time No Known Allergies Allergy Verified 09/18/24 10:21 Family History Mother No problems noted. Father No problems noted. Grandmother No problems noted. Grandfather No problems noted. Social History Smoking Status: Never smoker alcohol intake: never Vital Signs Vital Signs Vital Signs: 10/02/24 12:15 10/02/24 12:16 Temperature 97.3 F L Temperature Source Temporal Pulse Rate 60 Respiratory Rate 18 Respiratory Pattern Normal Blood Pressure 108/70 Blood Pressure Mean 82 Blood Pressure Source Monitor Blood Pressure Position Semi-Fowlers Blood Pressure Location Right Arm Pulse Ox 100 Oxygen Delivery Method Room Air Weight Weight: 274 lb 6.4 oz Body Mass Index (BMI) 34.2 Results Lab / Micro Data 10/02/24 12:29 10/02/24 1246 Cosigner Signature (if applicable): CC: Dr. Adriano Granados MD; No Primary Care Physician~ Signed [facility]05-28-2025 [facility] Medical Records Department [address] [place] [address] History Physical Exam 10/02/24 1237 MR#: [id number] Acct: [id number] Name: PARIS RAMIREZ Rep #: [id number] : 1985 39 From: Adriano Granados MD PCP: Care Physician,No Primary Status:[facility] Location: [place] [address] HPI - General HPI Narrative PARIS RAMIREZ, is a 39 M who presents for left knee anterior cruciate ligament reconstruction quadriceps tendon autograft, medial meniscus repair possible partial meniscectomy. No changes to history and physical exam. Left knee marked. Risks alternatives benefits as well as postoperative instructions and narcotic counseling given. The patient understands no further questions and wishes to proceed. MR#: [id number] Acct: [id number] Name: PARIS RAMRIEZ Rep #: [id number] : 1985 Provider: Dr. Adriano Granados MD Age/Sex: 38/M Location: [facility] [place].[place] Status: Signed Intake Vital Signs 08/26/2513:18 Height 6 ft 3 in Weight: 290 lb BMI 36.2 Intake Visit Reasons: RIGHT KNEE Chief Complaint: Left knee pain Accompanied by: Self Is patient in pain?: Yes Pain scale (1-10): 7 Allergies No Known Allergies Allergy (Unverified 08/26/24 14:21) Medications ???Medication ???Instructions ???Recorded ???Confirmed ???Type NK 08/26/24 08/26/24 History Have you fallen in the past year?: Yes [facility] Medical History (Updated 08/26/24 @ 14:47 by Adriano Granados MD) MCL sprain of left knee Effusion, left knee Tear of medial meniscus of left knee Left ACL tear Left knee pain Right knee pain Family History Mother No problems noted. Father No problems noted. Grandmother No problems noted. Grandfather No problems noted. Social History Smoking Status: Never smoker alcohol intake: never HPI RIGHT KNEE Details: This documentation accurately reflects the service provided and the decisions made by me, Dr. Adriano Granados MD 08/26/24 9160. Part of today???s visit was documented by [ ], acting as scribe. PARIS RAMIREZ is a 38 year old M here today for left knee pain. Referred for meniscus tear. a week- two weeks ago carrying a fish tank twisted the knee. using a brace. not a work injury. 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 feels unstable. swells right away, multiple pops. Supplemental Info Left (report states right though) knee MRI demonstrates complete ACL tear. longitudinal tear in the peripheral one third of the posterior horn of the medial meniscus grade 2-3 sprain MCL. small subchondral fracture medial tibia plateau posteriorly. large joint effusion. Pending the actual report this was taken from [employer] [facility]. Review of the MRI scanned into PACS. I independently reviewed the imaging. Concur with radiologist report. Coding Level of Care Code Off vis,new,level 4 Diagnoses Left knee pain M25.562 Left ACL tear S83.512A Tear of medial meniscus of left knee S83.242A Effusion, left knee M25.462 MCL sprain of left knee S83.412A Assessment and Plan Assessment and Plan (1) Left knee pain: Status: Acute Plan: 38-year-old man with an acute left ACL tear and medial meniscus tear. The patient also has a moderate grade sprain of the MCL at the proximal origin these tend to heal well with nonoperative management. That being said I went over the pros and cons risks and benefits of both conservative management nonoperative care versus surgical reconstruction. The patient wished to go ahead with surgery the patient is relatively young with good cartilage as well as physically demanding job. Without surgery the patient would likely have knee instability and high risk for long-term osteoarthritis damage to cartilage and further meniscus tears and injuries. Patient understands wishes to go ahead with surgery in the form of left knee anterior cruciate ligament reconstruction quadriceps tendon autograft, medial meniscus repair possible partial meniscectomy. Specific risks of surgery like repeat tear 5% fractures damage to other intra-articular structures VTE from time on crutches with the brace 6 weeks after surgery and other risks. He understands the risks wishes to proceed signed the form for today we will try to get this on as soon as possible. Full recovery before going back to pivoting and twisting and other very difficult demanding things on the knee would be 9 months. Pros and cons risks and benefits were discussed with the patient including but not limited to infection, pain, stiffne (more content not included)...[facility]04-21-2025 Evaluation note* Diagnosis Onset Date Resolution Status Admit Date Effusion, left knee acute August 26, 2024 2:17pm Left ACL tear acute August 26, 2024 2:17pm Left knee pain acute August 2:17pm MCL sprain of left knee acute A 2024 2:17pm Tear of medial meniscus of l eft knee acute August 26, 2024 2:17pm Left ACL tear acute October 02, 2 025 11:14am Tear of lateral meniscus of left knee acute October 02, 2024 1 1:14am Tear of medial meniscus of l eft knee acute October 02, 2024 1 1:14am [facility] Work Phone: 1(969) 893-764704-21-2025 Evaluation note* Diagnosis Onset Date Resolution Status Admit Date Effusion, left knee acute August 26, 2024 2:17pm Left ACL tear acute August 26, 2024 2:17pm Left knee pain acute August 2:17pm MCL sprain of left knee acute A 2024 2:17pm Tear of medial meniscus of l eft knee acute August 26, 2024 2:17pm Left ACL tear acute October 02, 2 025 11:14am Tear of lateral meniscus of left knee acute October 02, 2024 1 1:14am Tear of medial meniscus of l eft knee acute October 02, 2024 1 1:14am Left ACL tear acute October 15, 2024 12:59pm Left knee pain acute October 15, 2024 12:59pm MCL sprain of left knee acute 2024 12:59pm Tear of lateral meniscus of left knee acute October 15, 2024 12:59pm Tear of medial meniscus of l eft knee acute October 15, 2024 12:59pm [facility] [employer] Work Phone: 1(542) 599-350504-21-2025 Evaluation note* Diagnosis Onset Date Resolution Status Admit Date Effusion, left knee acute August 26, 2024 2:17pm Left ACL tear acute August 26, 2024 2:17pm Left knee pain acute August 2:17pm MCL sprain of left knee acute A pri2024 2:17pm Tear of medial meniscus of l eft knee acute August 26, 2024 2:17pm Left ACL tear acute October 02, 2 025 11:14am Tear of lateral meniscus of left knee acute October 02, 2024 1 1:14am Tear of medial meniscus of l eft knee acute October 02, 2024 1 1:14am Left ACL tear acute October 15, 2024 12:59pm Left knee pain acute October 15, 2024 12:59pm MCL sprain of left knee acute J une 2024 12:59pm Tear of lateral meniscus of left knee acute October 15, 2024 12:59pm Tear of medial meniscus of l eft knee acute October 15, 2024 12:59pm Left ACL tear acute November 12 025 12:48pm MCL sprain of left knee acute J [facility] 2024 12:48pm Tear of lateral meniscus of left knee acute November 12, 2024 1 2:48pm Tear of medial meniscus of l eft knee acute November 12, 2024 1 2:48pm [facility] Work Phone: 1([phone]) 733-586804-21-2025 Evaluation note* Diagnosis Onset Date Resolution Status Admit Date Effusion, left knee acute August 26, 2024 2:17pm Left ACL tear acute August 26, 2024 2:17pm Left knee pain acute August 2:17pm MCL sprain of left knee acute A 2024 2:17pm Tear of medial meniscus of l eft knee acute August 26, 2024 2:17pm Left ACL tear acute October 02, 2 025 11:14am Tear of lateral meniscus of left knee acute October 02, 2024 1 1:14am Tear of medial meniscus of l eft knee acute October 02, 2024 1 1:14am Left ACL tear acute October 15, 2024 12:59pm Left knee pain acute October 15, 2024 12:59pm MCL sprain of left knee acute J une 2024 12:59pm Tear of lateral meniscus of left knee acute October 15, 2024 12:59pm Tear of medial meniscus of l eft knee acute October 15, 2024 12:59pm Left ACL tear acute November 12, 2 025 12:48pm MCL sprain of left knee acute J obed 2024 12:48pm Tear of lateral meniscus of left knee acute November 12, 2024 1 2:48pm Tear of medial meniscus of l eft knee acute November 12, 2024 1 2:48pm Effusion, left knee acute Augus t 2024 9:37am Left ACL tear acute December 9:37am MCL sprain of left knee acute A ugust 2024 9:37am Tear of lateral meniscus of left knee acute December 23 9:37am Tear of medial meniscus of l eft knee acute December 23 9:37am [facility] Work Phone: 1(319) 699-518304-17-2025 NoteHNO ID: [id number] Author: SKYE PATHAK APRN.BOTTOMING ROOM SUPERVISOR Service: ? Author Type: Nurse Practitioner Type: Progress Notes Filed: 08/23/2024 14:46 Note Text: Skye Pathak APRN Orthopedic Sports Medicine Surgery [address], [place] [address] Orthopedic Surgery Sports Medicine Note NAME: Paris Ramirez : 1985 DATE: 08/13/2024 CHIEF COMPLAINT: left knee pain HPI: Paris Ramirez is a 38 year old male who presents today with acute left knee pain after a crush twisting injury 10 days ago. He recently completed MRI and is here to review results. He continues to experience pain and swelling. Has been trying to work on gentle ROM, but struggles with motion due to swelling and sensation of instability. I have reviewed and updated the patient's past medical history, past surgical history, social history, and family history. This is located both in the patient's note and their intake form that has been scanned into the medical record for today's visit. PAST MEDICAL HISTORY: There is no problem list on file for this patient. CURRENT MEDICATIONS: Current Outpatient Medications Medication Sig ibuprofen (MOTRIN) 800 mg tablet Take 1 tablet by mouth three times a day as needed for pain. No current facility-administered medications for this visit. ALLERGIES: Patient has no known allergies. SOCIAL HISTORY: Social History Tobacco Use Smoking status: Former Types: Cigarettes Smokeless tobacco: Never Vaping Use Vaping status: current everyday user Substances: Nicotine Substance Use Topics Alcohol use: Not Currently Drug use: Never FAMILY HISTORY: FAMILY HISTORY Problem Relation Age of Onset Dementia Mother Heart disease Mother Breast Cancer Mother Heart disease Father REVIEW OF SYSTEMS: As per HPI.? A 10 point review of systems was performed and was negative. PHYSICAL EXAM: Vital signs: Pulse 74 Ht 190.5 cm (6' 3) Wt 130.6 kg (288 lb) SpO2 97% BMI 36.00 kg/m? Constitutional: Well developed. Well nourished. Psychologic: Mood is appropriate. Appropriate affect. Head and Face: Normocephalic. No obvious deformities. External Ears Normal, no lesions or masses, grossly normal hearing. Eyes: Extraocular movements intact Pulmonary: Unlabored, normal effort. Cardiac: well perfused, extremities pink. Abdomen: Soft, not obese Skin: No rashes on exposed skin surface. Neuro: No focal neuro deficit, normal coordination, normal muscle tone Musculoskeletal: Left knee exam Inspection demonstrates moderate warm effusion with swelling concentrated over his superior patellar pouch. TTP globally over knee. Negative patellar grind. Range of motion limited to 5-90?. No crepitus with range of motion. Able perform some flexion of knee with significant lag of quad tendon. Unable to palpate defect with significant superior swelling. Ligamentous exam stable to varus and valgus stress at 0 and 30? of flexion. Frandy, posterior drawer, and [facility] testing is indeterminate. 2/2 apprehension from knee pain. Warm well perfused lower extremity with capillary refill less than 2 seconds and sensation intact to light touch in terminal nerve distributions. Calf soft and easily compressible without clinical signs of DVT. No palpable popliteal lymphadenopathy IMAGING: * * *Final Report* * * DATE OF EXAM: Aug 15 2024 3:58PM ROM 0212 - MRI KNEE WO IVCON LT / PROCEDURE REASON: multiple diagnoses * * * * Physician Interpretation * * * * EXAMINATION: MRI LEFT KNEE WITHOUT CONTRAST CLINICAL HISTORY: Rupture of anterior cruciate ligament of left knee, initial encounter. Quadriceps tendon rupture, left, initial encounter. Acute lateral meniscus tear of left knee, initial encounter. TECHNIQUE: Routine non-contrast MRI of the knee MQ: MRK_2B COMPARISON: None RESULT: MENISCI: Medial Meniscus: Longitudinal tear in peripheral 1/3 of the meniscus in the posterior horn (7:9). Lateral Meniscus: Intact. LIGAMENTS: ACL: Complete tear PCL: Intact MCL: High-grade partial to complete tear at the condylar attachment with periligamentous edema. LCL Complex: Intact CARTILAGE: Medial Femoral Condyle: Focal chondral defect at the weightbearing surface (7:10). Medial Tibial Plateau: Normal Lateral Femoral Condyle: Normal Lateral Tibial Plateau: Normal Patella: Normal Trochlea: Normal TENDONS: The distal quadriceps and patellar tendons are intact. The popliteus tendon is intact. BONES AND MARROW: Small linear subchondral fracture with surrounding edema noted at the posterior margin of the medial tibial plateau underlying the location of the medial meniscus tear (5:9). MUSCLES: Mild intramuscular edema within the distal biceps femoris and posteriorly within the vastus medialis and vastus lateralis muscles suggestive of mild strain. JOINT FLUID AND SYNOVIUM: Large joint effusion. No Villalba's cyst. OTHER: (more content not included)...[facility]04-17-2025 History of Present illness Narrative* Skye Pathak APRN.BOTTOMING ROOM SUPERVISOR - 08/22/2024 1:35 PM EDT Images from the original note were not included. Skye Pathak APRN Orthopedic Sports Medicine Surgery [address] [place] [address] Orthopedic Surgery Sports Medicine Note NAME: Paris Ramirez : 1985 DATE: 08/13/2024 CHIEF COMPLAINT: left knee pain HPI: Paris Ramirez is a 38 year old male who presents today with acute left knee pain after a crush twisting injury 10 days ago. He recently completed MRI and is here to review results. He continues to experience pain and swelling. Has been trying to work on gentle ROM, but struggles with motion due to swelling and sensation of instability. I have reviewed and updated the patient's past medical history, past surgical history, social history, and family history. This is located both in the patient's note and their intake form that has been scanned into the medical record for today's visit. PAST MEDICAL HISTORY: There is no problem list on file for this patient. CURRENT MEDICATIONS: Current Outpatient Medications Medication Sig ibuprofen (MOTRIN) 800 mg tablet Take 1 tablet by mouth three times a day as needed for pain. No current facility-administered medications for this visit. ALLERGIES: Patient has no known allergies. SOCIAL HISTORY: Social History Tobacco Use Smoking status: Former Types: Cigarettes Smokeless tobacco: Never Vaping Use Vaping status: current everyday user Substances: Nicotine Substance Use Topics Alcohol use: Not Currently Drug use: Never FAMILY HISTORY: FAMILY HISTORY Problem Relation Age of Onset Dementia Mother Heart disease Mother Breast Cancer Mother Heart disease Father REVIEW OF SYSTEMS: As per HPI.? A 10 point review of systems was performed and was negative. PHYSICAL EXAM: Vital signs: Pulse 74 Ht 190.5 cm (6' 3) Wt 130.6 kg (288 lb) SpO2 97% BMI 36.00 kg/m Constitutional: Well developed. Well nourished. Psychologic: Mood is appropriate. Appropriate affect. Head and Face: Normocephalic. No obvious deformities. External Ears Normal, no lesions or masses, grossly normal hearing. Eyes: Extraocular movements intact Pulmonary: Unlabored, normal effort. Cardiac: well perfused, extremities pink. Abdomen: Soft, not obese Skin: No rashes on exposed skin surface. Neuro: No focal neuro deficit, normal coordination, normal muscle tone Musculoskeletal: Left knee exam Inspection demonstrates moderate warm effusion with swelling concentrated over his superior patellar pouch. TTP globally over knee. Negative patellar grind. Range of motion limited to 5-90 . No crepitus with range of motion. Able perform some flexion of knee with significant lag of quad tendon. Unable to palpate defect with significant superior swelling. Ligamentous exam stable to varus and valgus stress at 0 and 30 of flexion. Frandy, posterior drawer, and [facility] testing is indeterminate. 2/2 apprehension from knee pain. Warm well perfused lower extremity with capillary refill less than 2seconds and sensation intact to light touch in terminal nerve distributions. Calf soft and easily compressible without clinical signs of DVT. No palpable popliteal lymphadenopathy IMAGING: * * *Final Report* * * DATE OF EXAM: Aug 15 2024 3:58PM ROM 0212 - MRI KNEE WO IVCON LT / PROCEDURE REASON: multiple diagnoses * * * * Physician Interpretation * * * * EXAMINATION: MRI LEFT KNEE WITHOUT CONTRAST CLINICAL HISTORY: Rupture of anterior cruciate ligament of left knee, initial encounter. Quadriceps tendon rupture, left, initial encounter. Acute lateral meniscus tear of left knee, initial encounter. TECHNIQUE: Routine non-contrast MRI of the knee MQ: MRK_2B COMPARISON: None RESULT: MENISCI: Medial Meniscus: Longitudinal tear in peripheral 1/3 of the meniscus in the posterior horn (7:9). Lateral Meniscus: Intact. LIGAMENTS: ACL: Complete tear PCL: Intact MCL: High-grade partial to complete tear at the condylar attachment with periligamentous edema. LCL Complex: Intact CARTILAGE: Medial Femoral Condyle: Focal chondral defect at the weightbearing surface (7:10). Medial Tibial Plateau: Normal Lateral Femoral Condyle: Normal Lateral Tibial Plateau: Normal Patella: Normal Trochlea: Normal TENDONS: The distal quadriceps and patellar tendons are intact. The popliteus tendon is intact. BONES AND MARROW: Small linear subchondral fracture with surrounding edema noted at the posterior margin of the medial tibial plateau underlying the location of the medial meniscus tear (5:9). MUSCLES: Mild intramuscular edema within the distal biceps femoris and posteriorly within the vastus medialis and vastus lateralis muscles suggestive of mild strain. JOINT FLUID AND SYNOVIUM: Large joint effusion. No Villalba's cyst. OTHER: There is diffuse subcutaneous and popliteal soft tissue edema. Localizer images: No additional findings. ASSESSMENT/ PLAN: 38 year old male seen today with medial mensical and ACL tear of left knee We discussed treatment for this condition and recommend surgery. At this point patient has a insurance that not accepted by orthpedic surgery. He was given options to call other surgical providers inthe area and [facility]. In the interim he will continue RICE. He is ok to WBAT. [facility] encounter Note * Telephone Encounter - Skye Pathak APRN.CNP - 08/16/2024 2:38 PM EDT Called and spoke with patient MRI results. Explained that at this time he can remain WBAT. No further bracing is needed. He will take the prescribed medrol dose pack and f/u as scheduled. We will reassess at next fu. [facility]04-11-2025 Miscellaneous Notes* Telephone Encounter - Skye Pathak APRN.CNP - 08/16/2024 2:38 PM EDT Called and spoke with patient MRI results. Explained that at this time he can remain WBAT. No further bracing is needed. He will take the prescribed medrol dose pack and f/u as scheduled. We will reassess at next fu. [facility]04[facility] History of Present illness Narrative* Mary Nazario MRI Tech - 08/15/2024 3:30 PM EDT Radiology Service Progress Note PATIENT NAME: Paris Ramirez DATE OF SERVICE: August 15, 2024 TIME: 3:29 PM PATIENT IDENTITY VERIFICATION COMPLETED USING TWO (2) IDENTIFIERS: Name and Date of confirmedby patient verbally. FALL SCREENING: Has the patient had 2 falls in the last year or 1 fall with injury or currently using an Ambulatory Assistive Device (Walker, Cane, Wheelchair, Crutches, etc.)? No PATIENT GENDER DATA: Assigned male at PATIENT RELEVANT IMPLANT DATA REVIEWED: Yes PATIENT PRESENTS WITH AN IMPLANTABLE OR ATTACHED TANK CHARGER: No RADIOLOGY DEPARTMENT: MR; Exam(s) Completed: Lower MSK: Knee, left PERIPHERAL IV DATA: Not applicable SIGNED BY: PEDRITO Saba August 15, 2024 3:29 PM documented in this [facility]04-10-2025 NoteHNO ID: [id number] Author: MARY NAZARIO MRI Tech Service: ? Author Type: Technologist Type: Progress Notes Filed: 08/15/2024 15:29 Note Text: Radiology Service Progress Note PATIENT NAME: Paris Ramirez DATE OF SERVICE: August 15, 2024 TIME: 3:29 PM PATIENT IDENTITY VERIFICATION COMPLETED USING TWO (2) IDENTIFIERS: Name and Date of confirmed by patient verbally. FALL SCREENING: Has the patient had 2 falls in the last year or 1 fall with injury or currently using an Ambulatory Assistive Device (Walker, Cane, Wheelchair, Crutches, etc.)? No PATIENT GENDER DATA: Assigned male at PATIENT RELEVANT IMPLANT DATA REVIEWED: Yes PATIENT PRESENTS WITH AN IMPLANTABLE OR ATTACHED TANK CHARGER: No RADIOLOGY DEPARTMENT: MR; Exam(s) Completed: Lower MSK: Knee, left PERIPHERAL IV DATA: Not applicable SIGNED BY: Mary Nazario statistical financial analyst August 15, 2024 3:29 PM[facility] Telephone encounter Note* Telephone Encounter - Skye Pathak APRN.CNP - 08/15/2024 1:25 PM EDT Med refill [facility]04-10-2025 Miscellaneous Notes* Telephone Encounter - Skye Pathak APRN.CNP - 08/15/2024 1:25 PM EDT Med refill documented in this encounterF[facility]04-[facility]-2025 NoteHNO ID: [id number] Author: SKYE PATHAK APRN.CNP Service: ? Author Type: Nurse Practitioner Type: Progress Notes Filed: 08/13/2024 12:08 Note Text: Skye Pathak APRN Orthopedic Sports Medicine Surgery [address] , [address] [address] Orthopedic Surgery Sports Medicine Note NAME: Paris Ramirez : 1985 DATE: 08/13/2024 CHIEF COMPLAINT: left knee pain HPI: Paris Ramirez is a 38 year old male who presents today with acute left knee pain after a crush twisting injury 3 days ago. 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 He felt immediate painful popping. Had difficulty ambulating afterwards so presented to urgent care where x-ray of knee revealed no acute fracture or mal-alignment. He was placed in a knee immobilizer presents today for further evaluation. He continues to have pain and swelling, worst over the entire knee. He has minimal motion. Denies any numbness. I have reviewed and updated the patient's past medical history, past surgical history, social history, and family history. This is located both in the patient's note and their intake form that has been scanned into the medical record for today's visit. PAST MEDICAL HISTORY: There is no problem list on file for this patient. CURRENT MEDICATIONS: Current Outpatient Medications Medication Sig ibuprofen (MOTRIN) 800 mg tablet Take 1 tablet by mouth three times a day as needed for pain. No current facility-administered medications for this visit. ALLERGIES: Patient has no known allergies. SOCIAL HISTORY: Social History Tobacco Use Smoking status: Former Types: Cigarettes Smokeless tobacco: Never Vaping Use Vaping status: current everyday user Substances: Nicotine Substance Use Topics Alcohol use: Not Currently Drug use: Never FAMILY HISTORY: FAMILY HISTORY Problem Relation Age of Onset Dementia Mother Heart disease Mother Breast Cancer Mother Heart disease Father REVIEW OF SYSTEMS: As per HPI.? A 10 point review of systems was performed and was negative. PHYSICAL EXAM: Vital signs: Pulse 61 Ht 190.5 cm (6' 3) Wt 132 kg (291 lb) SpO2 94% BMI 36.37 kg/m? Constitutional: Well developed. Well nourished. Psychologic: Mood is appropriate. Appropriate affect. Head and Face: Normocephalic. No obvious deformities. External Ears Normal, no lesions or masses, grossly normal hearing. Eyes: Extraocular movements intact Pulmonary: Unlabored, normal effort. Cardiac: well perfused, extremities pink. Abdomen: Soft, not obese Skin: No rashes on exposed skin surface. Neuro: No focal neuro deficit, normal coordination, normal muscle tone Musculoskeletal: Left knee exam Inspection demonstrates moderate warm effusion with swelling concentrated over his superior patellar pouch. TTP globally over knee. Negative patellar grind. Range of motion limited to 5-90?. No crepitus with range of motion. Able perform some flexion of knee with significant lag of quad tendon. Unable to palpate defect with significant superior swelling. Ligamentous exam stable to varus and valgus stress at 0 and 30? of flexion. Frandy, posterior drawer, and [facility] testing is indeterminate. 2/2 apprehension from knee pain. Warm well perfused lower extremity with capillary refill less than 2 seconds and sensation intact to light touch in terminal nerve distributions. Calf soft and easily compressible without clinical signs of DVT. No palpable popliteal lymphadenopathy IMAGING: * * *Final Report* * * DATE OF EXAM: Aug 11 2024 9:00PM [id number] [id number] - XR KNEE 4V AP/LAT/OBLS LT / PROCEDURE REASON: Acute pain of left knee * * * * Physician Interpretation * * * * XR KNEE 4V AP/LAT/OBLS LT Ordering Physician: BATOOL BUTLER 08/11/2024 9:00 PM LEFT KNEE Clinical Statement: Injury with pain FINDINGS: 5 images of the left knee were obtained. There were no prior studies available for comparison. The osseous structures are intact. No acute fractures are identified. The joint spaces are maintained. There is mild anterior soft tissue swelling. There is a small joint effusion. ASSESSMENT/ PLAN: 38 year old male seen today internal derangement of left knee Significant concern for soft tissue injury with possible meniscal vs ACL vs. Quad tendon rupture. I recommend that patient maintain knee immobilizer while up ambulating. Do not recommend flexion past 45 degrees with when sitting. Ok to WBAT with leg in full extension. We will plan for stat MRI. F/u once completed. [facility]04-08-2025 History of Present illness Narrative* Skye Pathak APRN.BOTTOMING ROOM SUPERVISOR - 08/13/2024 11:25 AM EDT Images from the original note were not included. Skye Pathak APRN Orthopedic Sports Medicine Surgery [address] , [place] [address] Orthopedic Surgery Sports Medicine Note NAME: Paris Ramirez : 1985 DATE: 08/13/2024 CHIEF COMPLAINT: left knee pain HPI: Paris Ramirez is a 38 year old male who presents today with acute left knee pain after a crush twisting injury 3 days ago. 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 He felt immediate painful popping. Had difficulty ambulating afterwards so presented to urgent care where x-ray of knee revealed no acute fracture or mal-alignment. He was placed in a knee immobilizer presents today for further evaluation. He continues to have pain and swelling, worst over the entire knee. He has minimal motion. Denies any numbness. I have reviewed and updated the patient's past medical history, past surgical history, social history, and family history. This is located both in the patient's note and their intake form that has been scanned into the medical record for today's visit. PAST MEDICAL HISTORY: There is no problem list on file for this patient. CURRENT MEDICATIONS: Current Outpatient Medications Medication Sig ibuprofen (MOTRIN) 800 mg tablet Take 1 tablet by mouth three times a day as needed for pain. No current facility-administered medications for this visit. ALLERGIES: Patient has no known allergies. SOCIAL HISTORY: Social History Tobacco Use Smoking status: Former Types: Cigarettes Smokeless tobacco: Never Vaping Use Vaping status: current everyday user Substances: Nicotine Substance Use Topics Alcohol use: Not Currently Drug use: Never FAMILY HISTORY: FAMILY HISTORY Problem Relation Age of Onset Dementia Mother Heart disease Mother Breast Cancer Mother Heart disease Father REVIEW OF SYSTEMS: As per HPI.? A 10 point review of systems was performed and was negative. PHYSICAL EXAM: Vital signs: Pulse 61 Ht 190.5 cm (6' 3) Wt 132 kg (291 lb) SpO2 94% BMI 36.37 kg/m Constitutional: Well developed. Well nourished. Psychologic: Mood is appropriate. Appropriate affect. Head and Face: Normocephalic. No obvious deformities. External Ears Normal, no lesions or masses, grossly normal hearing. Eyes: Extraocular movements intact Pulmonary: Unlabored, normal effort. Cardiac: well perfused, extremities pink. Abdomen: Soft, not obese Skin: No rashes on exposed skin surface. Neuro: No focal neuro deficit, normal coordination, normal muscle tone Musculoskeletal: Left knee exam Inspection demonstrates moderate warm effusion with swelling concentrated over his superior patellar pouch. TTP globally over knee. Negative patellar grind. Range of motion limited to 5-90 . No crepitus with range of motion. Able perform some flexion of knee with significant lag of quad tendon. Unable to palpate defect with significant superior swelling. Ligamentous exam stable to varus and valgus stress at 0 and 30 of flexion. Frandy, posterior drawer, and Yesica testing is indeterminate. 2/2 apprehension from knee pain. Warm well perfused lower extremity with capillary refill less than 2seconds and sensation intact to light touch in terminal nerve distributions. Calf soft and easily compressible without clinical signs of DVT. No palpable popliteal lymphadenopathy IMAGING: * * *Final Report* * * DATE OF EXAM: Aug 11 2024 9:00PM RNX [id number] - XR KNEE 4V AP/LAT/OBLS LT / PROCEDURE REASON: Acute pain of left knee * * * * Physician Interpretation * * * * XR KNEE 4V AP/LAT/OBLS LT Ordering Physician: BATOOL BUTLER 08/11/2024 9:00 PM LEFT KNEE Clinical Statement: Injury with pain FINDINGS: 5 images of the left knee were obtained. There were no prior studies available for comparison. The osseous structures are intact. No acute fractures are identified. The joint spaces are maintained. There is mild anterior soft tissue swelling. There is a small joint effusion. ASSESSMENT/ PLAN: 38 year old male seen today internal derangement of left knee Significant concern for soft tissue injury with possible meniscal vs ACL vs. Quad tendon rupture. Irecommend that patient maintain knee immobilizer while up ambulating. Do not recommend flexion past45 degrees with when sitting. Ok to WBAT with leg in full extension. We will plan for stat MRI. F/uonce completed. [facility] Telephone encounter Note * Telephone Encounter - Hipolito Alexander MD - 08/12/2024 9:57 AM EDT My recommendation is for the patient to call [facility] so he can be scheduled with other orthopedics in the [facility]. Thank you. [facility] Work Phone: [phone]) 928-757204-07-2025 Miscellaneous Notes* Telephone Encounter - Hipolito Alexander MD - 08/12/2024 9:57 AM EDT My recommendation is for the patient to call [facility] so he can be scheduled with other orthopedics in the [facility]. Thank you. * Telephone Encounter - Tarah Rowell LPN - 08/12/2024 8:49 AM EDT Patient called and stated that he was here last night 08-11-24 for a knee injury. When he called the ortho given its a month out to be seen, he called other orthos and they are still the same. What should he do? Tarah Rowell LPN documented in this encounterF[facility]04-07-2025 Telephone encounter Note * Telephone Encounter - Tarah Rowell LPN - 08/12/2024 8:49 AM EDT Patient called and stated that he was here last night 08-11-24 for a knee injury. When he called the ortho given its a month out to be seen, he called other orthos and they are still the same. What should he do? Tarah Rowell LPN [facility]04-06-2025 History of Present illness Narrative* Darren Lawson RT(R) - 08/11/2024 9:00 PM EDT Radiology Service Progress Note PATIENT NAME: Paris Ramirez DATE OF SERVICE: August 11, 2024 TIME: 9:00 PM PATIENT IDENTITY VERIFICATION COMPLETED USING TWO (2) IDENTIFIERS: Name and Date of confirmedby patient verbally. FALL SCREENING: Has the patient had 2 falls in the last year or 1 fall with injury or currently using an Ambulatory Assistive Device (Walker, Cane, Wheelchair, Crutches, etc.)? No PATIENT GENDER DATA: Assigned male at PATIENT RELEVANT IMPLANT DATA REVIEWED: Not Applicable PATIENT PRESENTS WITH AN IMPLANTABLE OR ATTACHED TANK CHARGER: No RADIOLOGY DEPARTMENT: General X-ray: Exam(s) Completed: Lower Extremity X- Ray(s): Knee, AP / Lat / Merchant Left PERIPHERAL IV DATA: Not applicable SIGNED BY: RT Levy(Jennifer) August 11, 2024 9:00 PM documented in this encounterFulton [facility]04-06-2025 NoteHNO ID: [id number] Author: DARREN LAWSON RT(R) Service: Radiology Author Type: Technologist Type: Progress Notes Filed: 08/11/2024 21:01 Note Text: Radiology Service Progress Note PATIENT NAME: Paris Ramirez DATE OF SERVICE: August 11, 2024 TIME: 9:00 PM PATIENT IDENTITY VERIFICATION COMPLETED USING TWO (2) IDENTIFIERS: Name and Date of confirmed by patient verbally. FALL SCREENING: Has the patient had 2 falls in the last year or 1 fall with injury or currently using an Ambulatory Assistive Device (Walker, Cane, Wheelchair, Crutches, etc.)? No PATIENT GENDER DATA: Assigned male at PATIENT RELEVANT IMPLANT DATA REVIEWED: Not Applicable PATIENT PRESENTS WITH AN IMPLANTABLE OR ATTACHED TANK CHARGER: No RADIOLOGY DEPARTMENT: General X-ray: Exam(s) Completed: Lower Extremity X-Ray(s): Knee, AP / Lat / Merchant Left PERIPHERAL IV DATA: Not applicable SIGNED BY: RT Levy(R) August 11, 2024 9:00 PMProv[facility]04-06-2025 NoteHNO ID: [id number] Author: BATOOL BUTLER MD Service: ? Author Type: Physician Type: Progress Notes Filed: 08/11/2024 21:01 Note Text: [facility] Subjective Paris Ramirez is a 38 year old male. Patient presents with: Fall: Patient stated that he had a fall tonight and landed on left knee and LLE went sideways. Patient heard a pop 38-year-old male patient presented here plaint left knee pain. Patient fell landed on his left knee went sideways since then the knee is hurting and swelling no other complaint. Review of Systems Musculoskeletal: Positive for arthralgias, joint swelling and myalgias. All other systems reviewed and are negative. Objective BP 127/84 Pulse 63 Temp 36.8 ?C (98.3 ?F) Resp 16 Wt (!) 145.2 kg (320 lb) SpO2 96% BMI 40.00 kg/m? Physical Exam Vitals and nursing note reviewed. Constitutional: Appearance: Normal appearance. Cardiovascular: Rate and Rhythm: Normal rate and regular rhythm. Pulses: Normal pulses. Heart sounds: Normal heart sounds. Pulmonary: Effort: Pulmonary effort is normal. Breath sounds: Normal breath sounds. Musculoskeletal: Comments: Examination of the left knee there is an abrasion some minimal swelling limited range of motion due to pain, flexion extension of the knee is limited due to pain. Anterior posterior drawer signs could not be performed due to limited range of motion. Neurological: Mental Status: He is alert. {ASSESSMENT/PLAN: 1. Acute pain of left knee - ICD9: 719.46, ICD10: M25.562 Discussed with patient treatments and plan I immobilized his knee gave him crutches refer him to an orthopedic - XR KNEE INJURY 4V AP/LAT/OBLS LEFT - KNEE IMMOBILIZER - CRUTCHES Batool Butler MD Management I performed an independent interpretation of the following:imaging Imaging: My interpretation is Soft tissue swelling no acute fracture ProceduresProvidence [facility]04-06-2025 History of Present illness Narrative* Batool Butler MD - 08/11/2024 8:44 PM EDT [facility] Paris Ramirez is a 38 year old male. Patient presents with: Fall: Patient stated that he had a fall tonight and landed on left knee and LLE went sideways. Patient heard a pop 38-year-old male patient presented here plaint left knee pain. Patient fell landed on his left kneewent sideways since then the knee is hurting and swelling no other complaint. Review of Systems Musculoskeletal: Positive for arthralgias, joint swelling and myalgias. All other systems reviewed and are negative. Objective BP 127/84 Pulse 63 Temp 36.8 C (98.3 F) Resp 16 Wt (!) 145.2 kg (320 lb) SpO2 96% BMI 40.00 kg/m Physical Exam Vitals and nursing note reviewed. Constitutional: Appearance: Normal appearance. Cardiovascular: Rate and Rhythm: Normal rate and regular rhythm. Pulses: Normal pulses. Heart sounds: Normal heart sounds. Pulmonary: Effort: Pulmonary effort is normal. Breath sounds: Normal breath sounds. Musculoskeletal: Comments: Examination of the left knee there is an abrasion some minimal swelling limited range of motion due to pain, flexion extension of the knee is limited due to pain. Anterior posterior drawer signs could not be performed due to limited range of motion. Neurological: Mental Status: He is alert. {ASSESSMENT/PLAN: 1. Acute pain of left knee - ICD9: 719.46, ICD10: M25.562 Discussed with patient treatments and plan I immobilized his knee gave him crutches refer him to anorthopedic - XR KNEE INJURY 4V AP/LAT/OBLS LEFT - KNEE IMMOBILIZER - CRUTCHES Batool Butler MD Management I performed an independent interpretation of the following:imaging Imaging: My interpretation is Soft tissue swelling no acute fracture Procedures documented in this encounterF[facility]02-28-2025 NoteHNO ID: [id number] Author: BATOOL BUTLER MD Service: ? Author Type: Physician Type: Progress Notes Filed: 07/05/2024 17:03 Note Text: Paris Ramirez is a 38 year old male who presents with Other (Pimple like sore - Entered by patient) and Pain (Patient stated that he has an area on corpus spongiosum. ) 38-year-old male patient presented here had a painful lesion on his foreskin. Patient was here couple weeks ago was treated with antibiotics cleared up and now came back patient is seen a urologist and they could not see the lesion after he had been treated. No fevers no other complaint No past medical history on file. There is no problem list on file for this patient. Current Outpatient Medications Medication Sig Dispense Refill cephALEXin (KEFLEX) 500 mg capsule Take 1 capsule by mouth three times a day for 10 days. 30 capsule 0 sulfamethoxazole-trimethoprim (BACTRIM DS) 800-160 mg per tablet Take 1 tablet by mouth two times a day for 10 days. 20 tablet 0 ciprofloxacin HCl (CIPRO) 500 mg tablet Take 1 tablet by mouth every 12 hours. (Patient not taking: Reported on 07/05/2024) oxybutynin (DITROPAN) 5 mg tablet Take 1 tablet by mouth two times a day. (Patient not taking: Reported on 07/05/2024) 90 tablet 3 iv contrast (will be provided with radiology test) CT Urogram WO/W Inject, intravenously, once for 1 dose.No IV access, insert saline lock prior to the beginning of sedation, infusion, injection of imaging exam. Discontinue saline lock post exam. If Pt. has a central line or IVAD, may access for administration according to line specific nursing protocol. Once exam is complete flush line and de-access according to line specific nursing protocol in the CT contrast administration guidelines link. (Patient not taking: Reported on 07/05/2024) 1 Each 0 No current facility-administered medications for this visit. Social History Tobacco Use Smoking status: Former Types: Cigarettes Smokeless tobacco: Never Vaping Use Vaping status: current everyday user Substances: Nicotine Substance Use Topics Alcohol use: Not Currently Drug use: Never Alcohol Use: Not Currently Tobacco Use: Types: Cigarettes FAMILY HISTORY Problem Relation Age of Onset Dementia Mother Heart disease Mother Breast Cancer Mother Heart disease Father Review of Systems All other systems reviewed and are negative. BP 121/84 Pulse 62 Temp (Src) 98.4 (Temporal) Resp 14 Wt 320 lb (145.2kg) SpO2 95% Physical Exam Vitals and nursing note reviewed. Constitutional: Appearance: Normal appearance. Cardiovascular: Rate and Rhythm: Normal rate and regular rhythm. Pulses: Normal pulses. Heart sounds: Normal heart sounds. Pulmonary: Effort: Pulmonary effort is normal. Breath sounds: Normal breath sounds. Genitourinary: Comments: Painful swollen lesion on the lateral side of the foreskin. No drainage Neurological: Mental Status: He is alert. Procedures ASSESSMENT/PLAN: 1. Infected skin lesion - ICD9: 686.9, ICD10: L08.9 Place patient on Keflex 500 mg p.o. 3 times daily, Bactrim DS 1 tab twice a day have him follow-up with his urologist treatments and plans to discussed Batool Trammell [facility]02-28-2025 History of Present illness Narrative* Batool Butler MD - 07/05/2024 4:44 PM EST Paris Ramirez is a 38 year old male who presents with Other (Pimple like sore - Entered by patient) and Pain (Patient stated that he has an area on corpus spongiosum. ) 38-year-old male patient presented here had a painful lesion on his foreskin. Patient was here couple weeks ago was treated with antibiotics cleared up and now came back patient is seen a urologist and they could not see the lesion after he had been treated. No fevers no other complaint No past medical history on file. There is no problem list on file for this patient. Current Outpatient Medications Medication Sig Dispense Refill cephALEXin (KEFLEX) 500 mg capsule Take 1 capsule by mouth three times a day for 10 days. 30 capsule 0 sulfamethoxazole-trimethoprim (BACTRIM DS) 800-160 mg per tablet Take 1 tablet by mouth two times aday for 10 days. 20 tablet 0 ciprofloxacin HCl (CIPRO) 500 mg tablet Take 1 tablet by mouth every 12 hours. (Patient not taking:Reported on 07/05/2024) oxybutynin (DITROPAN) 5 mg tablet Take 1 tablet by mouth two times a day. (Patient not taking: Reported on 07/05/2024) 90 tablet 3 iv contrast (will be provided with radiology test) CT Urogram WO/W Inject, intravenously, once for 1 dose.No IV access, insert saline lock prior to the beginning of sedation, infusion, injection of imaging exam. Discontinue saline lock post exam. If Pt. has a central line or IVAD, may access for administration according to line specific nursing protocol. Once exam is complete flush line and de-access according to line specific nursing protocol in the CT contrast administration guidelines link. (Patient not taking: Reported on 07/05/2024) 1 Each 0 No current facility-administered medications for this visit. Social History Tobacco Use Smoking status: Former Types: Cigarettes Smokeless tobacco: Never Vaping Use Vaping status: current everyday user Substances: Nicotine Substance Use Topics Alcohol use: Not Currently Drug use: Never Alcohol Use: Not Currently Tobacco Use: Types: Cigarettes FAMILY HISTORY Problem Relation Age of Onset Dementia Mother Heart disease Mother Breast Cancer Mother Heart disease Father Review of Systems All other systems reviewed and are negative. BP 121/84 Pulse 62 Temp (Src) 98.4 (Temporal) Resp 14 Wt 320 lb (145.2kg) SpO2 95% Physical Exam Vitals and nursing note reviewed. Constitutional: Appearance: Normal appearance. Cardiovascular: Rate and Rhythm: Normal rate and regular rhythm. Pulses: Normal pulses. Heart sounds: Normal heart sounds. Pulmonary: Effort: Pulmonary effort is normal. Breath sounds: Normal breath sounds. Genitourinary: Comments: Painful swollen lesion on the lateral side of the foreskin. No drainage Neurological: Mental Status: He is alert. Procedures ASSESSMENT/PLAN: 1. Infected skin lesion - ICD9: 686.9, ICD10: L08.9 Place patient on Keflex 500 mg p.o. 3 times daily, Bactrim DS 1 tab twice a day have him follow-up with his urologist treatments and plans to discussed Batool Butler documented in this encounterF[facility]01-13-2025 Telephone encounter Note * Telephone Encounter - Liliana Pearson LPN - 05/20/2024 7:32 AM EST Already sent on 05/17/23. Duplicate Liliana Pearson LPN [facility]01-13-2025 Miscellaneous Notes* Telephone Encounter - Liliana Pearson LPN - 05/20/2024 7:32 AM EST Already sent on 05/17/23. Duplicate Liliana Pearson LPN documented in this encounterFulton [facility]01-10-2025 Telephone encounter Note * Telephone Encounter - Sasha Barreto LPN - 05/17/2024 1:09 PM EST Patient called requesting the following refill. Requested Prescriptions Pending Prescriptions Disp Refills oxyCODONE-acetaminophen (PERCOCET) 5-325 mg tablet 20 tablet 0 Sig: Take 1 tablet by mouth every 6 hours as needed for pain for up to 5 days. Patient last appointment: 05/17/2024 Patient Phone numbers: [phone] (home) Request is for script(s) to be escript to pharmacy. Sasha Barreto LPN [facility]01-10-2025 Miscellaneous Notes* Telephone Encounter - Sasha Barreto LPN - 05/17/2024 1:09 PM EST Patient called requesting the following refill. Requested Prescriptions Pending Prescriptions Disp Refills oxyCODONE-acetaminophen (PERCOCET) 5-325 mg tablet 20 tablet 0 Sig: Take 1 tablet by mouth every 6 hours as needed for pain for up to 5 days. Patient last appointment: 05/17/2024 Patient Phone numbers: [phone] (home) Request is for script(s) to be escript to pharmacy. Sasha Barreto LPN documented in this encounterFulton [facility] Center01-10-2025 NoteHNO ID: [id number] Author: SASHA BARRETO LPN Service: ? Author Type: LICENSED NURSE Type: Progress Notes Filed: 05/17/2024 12:02 Note Text: Sácnhez catheter placement done today with # 18 Fr catheter. Inserted without complication using sterile technique. Clear yellow urine noted in tubing. No c/o at this time. [facility] History of Present illness Narrative* Sasha Barreto LPN - 05/17/2024 11:59 AM EST Sánchez catheter placement done today with # 18 Fr catheter. Inserted without complication using sterile technique. Clear yellow urine noted in tubing. No c/o at this time. Sasha Barreto LPN * Jenn Elizalde MD - 05/17/2024 11:58 AM EST Paris Ramirez is a 38 year old male who presents with Follow-up his catheter fell out today. He did not pull it out or just fell out something it was defective. We put another 18 and he bled fairly good when it fell out he is also getting bladder spasm we will give him some Ditropan Review of Systems- Reviewed and otherwise non-contributory. There were no vitals taken for this visit. History reviewed. No pertinent past medical history. PAST SURGICAL HISTORY Procedure Laterality Date PENIS SURGERY HX uretheral work when he was 11 Current Outpatient Medications Medication Sig Dispense Refill oxyCODONE-acetaminophen (PERCOCET) 5-325 mg tablet TAKE 1 TABLET BY MOUTH EVERY 6 HOURS FOR 7 DAYS NEEDED FOR PAIN ciprofloxacin HCl (CIPRO) 500 mg tablet Take 1 tablet by mouth every 12 hours. iv contrast (will be provided with radiology test) CT Urogram WO/W Inject, intravenously, once for 1 dose.No IV access, insert saline lock prior to the beginning of sedation, infusion, injection of imaging exam. Discontinue saline lock post exam. If Pt. has a central line or IVAD, may access for administration according to line specific nursing protocol. Once exam is complete flush line and de-access according to line specific nursing protocol in the CT contrast administration guidelines link. 1 Each 0 No current facility-administered medications for this visit. (R31.29) Microscopic hematuria (primary encounter diagnosis) Plan week ic and dc jamia Elizalde MD This note was generated with voice recognition software and may contain errors, including spelling,grammar, syntax and misrecognition of what was dictated, that are not fully corrected. documented in this encounterFulton [facility] Center01-10-2025 NoteHNO ID: [id number] Author: JENN ELIZALDE MD Service: ? Author Type: Physician Type: Progress Notes Filed: 05/17/2024 12:02 Note Text: Paris Ramirez is a 38 year old male who presents with Follow-up his catheter fell out today. He did not pull it out or just fell out something it was defective. We put another 18 and he bled fairly good when it fell out he is also getting bladder spasm we will give him some Ditropan Review of Systems- Reviewed and otherwise non-contributory. There were no vitals taken for this visit. History reviewed. No pertinent past medical history. PAST SURGICAL HISTORY Procedure Laterality Date PENIS SURGERY HX uretheral work when he was 11 Current Outpatient Medications Medication Sig Dispense Refill oxyCODONE-acetaminophen (PERCOCET) 5-325 mg tablet TAKE 1 TABLET BY MOUTH EVERY 6 HOURS FOR 7 DAYS NEEDED FOR PAIN ciprofloxacin HCl (CIPRO) 500 mg tablet Take 1 tablet by mouth every 12 hours. iv contrast (will be provided with radiology test) CT Urogram WO/W Inject, intravenously, once for 1 dose.No IV access, insert saline lock prior to the beginning of sedation, infusion, injection of imaging exam. Discontinue saline lock post exam. If Pt. has a central line or IVAD, may access for administration according to line specific nursing protocol. Once exam is complete flush line and de-access according to line specific nursing protocol in the CT contrast administration guidelines link. 1 Each 0 No current facility-administered medications for this visit. (R31.29) Microscopic hematuria (primary encounter diagnosis) Plan week ic and dc jamia Elizalde MD This note was generated with voice recognition software and may contain errors, including spelling, grammar, syntax and misrecognition of what was dictated, that are not fully corrected.[facility]01-09-2025 Note. MICRO - Microbiology PROCEDURE: Urine Culture [*1] SOURCE: Urine, Clean Catch BODY SITE: Bladder COLLECTED DATE/TIME: 05/14/2024 13:32 EST RECEIVED DATE/TIME: 05/14/2024 21:53 EST START DATE/TIME: 05/14/2024 21:53 EST FREE TEXT SOURCE: URINE CULTURE FROM CYSTOSCOPES FINAL REPORTS Final Report [] Verified Date/Time/Personnel: 05/16/2024 07:27 EST No growth at 48 hours. PRELIMINARY REPORTS Preliminary Report [] Verified Date/Time/Personnel: 05/15/2024 09:42 EST No growth to date Performing Locations *1: This test was performed at: [facility], [address] [place] [address], [id number] , [facility]01-07-2025 Telephone encounter Note* Telephone Encounter - Tete Doan - 05/14/2024 3:37 PM EST Needs post op/sánchez out in 10 days [facility]01-07-2025 Miscellaneous Notes* Telephone Encounter - Tete Doan - 05/14/2024 3:37 PM EST Needs post op/sánchez out in 10 days documented in this encounterFulton [facility] Center12-16-2024 NoteHNO ID: [id number] Author: JENN ELIZALDE MD Service: ? Author Type: Physician Type: Progress Notes Filed: 04/22/2024 10:01 Note Text: Paris Ramirez is a 38 year old male who presents with Follow-up of his bad cystitis. That urethral stricture we did a flow today he empties totally his flow is actually not too bad is 12.6 and he only voided 54 just really not too bad I think you are still going to set him up for a VIU at some point we talked about intermittent cath after and a catheter for 10 days. Will look at his CT urogram right now it looks normal I do not have the report Review of Systems- Reviewed and otherwise non-contributory. Ht 190.5 cm (6' 3) Wt (!) 145.2 kg (320 lb) BMI 40.00 kg/m? No past medical history on file. PAST SURGICAL HISTORY Procedure Laterality Date PENIS SURGERY HX uretheral work when he was 11 Current Outpatient Medications Medication Sig Dispense Refill ciprofloxacin HCl (CIPRO) 500 mg tablet Take 1 tablet by mouth two times a day for 14 days. 28 tablet 0 iv contrast (will be provided with radiology test) CT Urogram WO/W Inject, intravenously, once for 1 dose.No IV access, insert saline lock prior to the beginning of sedation, infusion, injection of imaging exam. Discontinue saline lock post exam. If Pt. has a central line or IVAD, may access for administration according to line specific nursing protocol. Once exam is complete flush line and de-access according to line specific nursing protocol in the CT contrast administration guidelines link. 1 Each 0 No current facility-administered medications for this visit. (N48.1) Balanitis (primary encounter diagnosis) Plan VIU Jenn Elizalde MD This note was generated with voice recognition software and may contain errors, including spelling, grammar, syntax and misrecognition of what was dictated, that are not fully corrected.[facility]12-16-2024 History of Present illness Narrative* Jenn Elizalde MD - 04/22/2024 9:57 AM EST Paris Ramirez is a 38 year old male who presents with Follow-up of his bad cystitis. That urethral stricture we did a flow today he empties totally his flow is actually not too bad is 12.6 and he only voided 54 just really not too bad I think you are still going to set him up for a VIU at some point we talked about intermittent cath after and a catheter for 10 days. Will look at his CT urogram right now it looks normal I do not have the report Review of Systems- Reviewed and otherwise non-contributory. Ht 190.5 cm (6' 3) Wt (!) 145.2 kg (320 lb) BMI 40.00 kg/m No past medical history on file. PAST SURGICAL HISTORY Procedure Laterality Date PENIS SURGERY HX uretheral work when he was 11 Current Outpatient Medications Medication Sig Dispense Refill ciprofloxacin HCl (CIPRO) 500 mg tablet Take 1 tablet by mouth two times a day for 14 days. 28 tablet 0 iv contrast (will be provided with radiology test) CT Urogram WO/W Inject, intravenously, once for 1 dose.No IV access, insert saline lock prior to the beginning of sedation, infusion, injection of imaging exam. Discontinue saline lock post exam. If Pt. has a central line or IVAD, may access for administration according to line specific nursing protocol. Once exam is complete flush line and de-access according to line specific nursing protocol in the CT contrast administration guidelines link. 1 Each 0 No current facility-administered medications for this visit. (N48.1) Balanitis (primary encounter diagnosis) Plan VIU Jenn Elizalde MD This note was generated with voice recognition software and may contain errors, including spelling,grammar, syntax and misrecognition of what was dictated, that are not fully corrected. * Vonnie Harris LPN - 04/22/2024 9:46 AM EST Peak Flow rate 12.6 Voided 54ML Pvr 0ml [facility]24 NoteHNO ID: [id number] Author: VONNIE HARRIS LPN Service: ? Author Type: LICENSED NURSE Type: Progress Notes Filed: 04/22/2024 10:01 Note Text: Peak Flow rate 12.6 Voided 54ML Pvr [facility]ml[facility]12[facility] History of Present illness Narrative* Sulma Cohn RT(R) - 04/19/2024 6:30 PM EST Radiology Service Progress Note DATE OF SERVICE: April 19, 2024 TIME: 6:21 PM PATIENT IDENTITY VERIFICATION COMPLETED USING TWO (2) STANDARD IDENTIFIERS: Name and Date of confirmed by patient verbally. FALL SCREENING: Has the patient had 2 falls in the last year or 1 fall with injury or currently using an Ambulatory Assistive Device (Walker, Cane, Wheelchair, Crutches, etc.)? No PATIENT GENDER DATA: Male PATIENT RELEVANT IMPLANT DATA REVIEWED: Not Applicable PATIENT PRESENTS WITH AN IMPLANTABLE OR ATTACHED TANK CHARGER: No ALLERGIES: Reviewed and unchanged CONTRAST ALLERGY: NO. EXAM: CT -CONTRAST INDUCED NEPHROPATHY RISK FACTORS: Not applicable CREATININE: No results found for: CREAT, EGFROTH, EGFRAA P.O.C.T. RESULTS: N/A April 19, 2024 TREATMENT: N/A PERIPHERAL IV DATA: Ambulatory: A peripheral IV was started in the Right antecubital site with a Angio cath: 20 gauge. RADIOLOGY DEPARTMENT: CT; Exam(s) Completed: Urogram SIGNATURE: RT Orlando(Jennifer) PATIENT NAME: Paris Ramirez DATE: April 19, 2024 TIME: 6:21 PM documented in this encounterF[facility]12-13-2024 NoteHNO ID: [id number] Author: SULMA COHN RT (R) Service: Radiology Author Type: Financial Services Professional Type: Progress Notes Filed: 04/19/2024 18:22 Note Text: Radiology Service Progress Note DATE OF SERVICE: April 19, 2024 TIME: 6:21 PM PATIENT IDENTITY VERIFICATION COMPLETED USING TWO (2) STANDARD IDENTIFIERS: Name and Date of confirmed by patient verbally. FALL SCREENING: Has the patient had 2 falls in the last year or 1 fall with injury or currently using an Ambulatory Assistive Device (Walker, Cane, Wheelchair, Crutches, etc.)? No PATIENT GENDER DATA: Male PATIENT RELEVANT IMPLANT DATA REVIEWED: Not Applicable PATIENT PRESENTS WITH AN IMPLANTABLE OR ATTACHED TANK CHARGER: No ALLERGIES: Reviewed and unchanged CONTRAST ALLERGY: NO. EXAM: CT -CONTRAST INDUCED NEPHROPATHY RISK FACTORS: Not applicable CREATININE: No results found for: CREAT, EGFROTH, EGFRAA P.O.C.T. RESULTS: N/A April 19, 2024 TREATMENT: N/A PERIPHERAL IV DATA: Ambulatory: A peripheral IV was started in the Right antecubital site with a Angio cath: 20 gauge. RADIOLOGY DEPARTMENT: CT; Exam(s) Completed: Urogram SIGNATURE: RT Orlando(R) PATIENT NAME: Paris Ramirez DATE: April 19, 2024 TIME: 6:21 PMProv[facility]12-05-2024 NoteHNO ID: [id number] Author: JENN ELIZALDE MD Service: ? Author Type: Physician Type: Procedures Filed: 04/11/2024 15:45 Note Text: CYSTOSCOPY PROCEDURE NOTE: Paris Ramirez is a 38 year old male who presents with follow-up of his gross hematuria and blood clots. He passed some more today had a miserable night a lot of frequency and urgency and exact start to get chills so we brought him in at the end of the day and did a flexible cystoscope he does have a proximal urethral stricture look like I could see the little scars I think he might be a third 1 and there but he knew he had a surgery when he was a kid and there is some scar there. I just wonder if this is what aggravated everything prostate looks pretty normal his bladder is diffusely red area where he has been taken some Pyridium so I did irrigate him a few times forgets it well but is completely red I do not think there is any bladder cancer there. I also did a renal ultrasound kidneys are about 10 cm and look pretty normal we still want todo the CT urogram though I think the answer is good to be pretty bad prostatitis/cystitis probably aggravated by that scar Pt ID verified with patient: Yes Procedure verified with patient: Yes Procedure confirmed with physician and it support engineer: Yes UNIVERSAL PROTOCOL / SAFETY CHECKLIST Procedure to be Performed: cystoscopy Sign In: A Moment of CARE was completed. Personnel directly involved with the procedure wore the appropriate PPE (Personal Protective Equipment). Patient/Surrogate Stated/Verified: PATIENT VERIFIED: Patient name, Date of , Relevant allergies, and The intended procedure Time Out Communication: Intended patient and procedure match the source documents. Consent documented and matches the intended procedure. Sign Out: SIGN OUT: All specimen containers correctly labeled. A urinalysis was performed revealing no evidence of infection. The benefits, risks, alternatives of the cystoscopy procedure and personnel were discussed with the patient. The verbal consent was obtained and the patient agrees to proceed. Procedure: The patient was placed on the procedure table in the supine position and prepped and draped in the usual sterile fashion. 2% Lidocaine Jelly was placed per urethra as an anesthetic in the standard fashion. Once adequate local anesthesia was achieved, the tip of the flexible cystoscope was carefully placed into the urethra under direct visual guidance. The scope was negotiated through the pendulous urethra to the level of the bulbar urethra. The verumontanum came into view and the scope was negotiated through the prostatic urethra which showed normal. The bladder was entered and careful north endoscopy was carried out. The posterior, superior and lateral bahena and dome of the bladder were all well visualized. At the conclusion of the procedure, the cystoscope was removed atraumatically. The patient tolerated the procedure without complications. Patient was given standard post-procedure instructions, and was directed to complete the course of oral antibiotics and increase oral fluid intake as directed. ASSESSMENT/PLAN: 1. Microscopic hematuria - ICD9: 599.72, ICD10: R31.29 (primary diagnosis) - CIPROFLOXACIN 500 MG TABLET - LIDOCAINE 2 % MUCOSAL JELLY IN APPLICATOR - URINE CULTURE - URINE CULTURE - CIPROFLOXACIN 500 MG TABLET - OXYCODONE-ACETAMINOPHEN 5 MG-325 MG TABLET 2. Gross hematuria - ICD9: 599.71, ICD10: R31.0 - CIPROFLOXACIN 500 MG TABLET - LIDOCAINE 2 % MUCOSAL JELLY IN APPLICATOR - URINE CULTURE - URINE CULTURE - CIPROFLOXACIN 500 MG TABLET - OXYCODONE-ACETAMINOPHEN 5 MG-325 MG TABLET Plan cipro, ctu fb percocet Jenn Alston Black, MD Please note: This note has been produced using speech recognition software and may contain errors related to that system including grammar, punctuation, spelling, gender and words and phrases that may be inappropriate.[facility]12-05-2024 Procedure note* Jenn Elizalde MD - 04/11/2024 3:41 PM EST CYSTOSCOPY PROCEDURE NOTE: Paris Ramirez is a 38 year old male who presents with follow-up of his gross hematuria and blood clots. He passed some more today had a miserable night a lot of frequency and urgency and exact start to get chills so we brought him in at the end of the day and did a flexible cystoscope he does have aproximal urethral stricture look like I could see the little scars I think he might be a third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 Activity: Use Crutches Ice area for (Minutes): 10 Lifting Restrictions: partial WB with leg straight in brace. Keep extremity elevated above heart level: Operative Extremity Dressing / Incision Call your doctor if your incision/area has: Continuous Slow Oozing, Sudden Increased Bleeding, Increased Pain/ Swelling, Increased Redness, Foul Smelling Discharge and Swelling at the incision site Call your doctor if you observe: Fever of 101 or Higher, Coldness, Increased Pain and Numbness or Tingling Change Dressing in: leave in place till F/U Cleanse incision/area with: Do not get Incision Wet Follow Up Care Please Follow Up With: Adriano Granados MD When: within 2 weeks Test Results: Test results from this visit will be discussed in further detail at your follow- up appointment, if applicable. Discharge Plan Admission Attending Provider: Adriano Granados Primary Care Provider: Care Physician,No Primary Instructions Patient Instructions: ACL Injury Surg Print Language: Burkinan Discharge Orders/Prescriptions Prescriptions: New oxycodone-acetaminophen [Endocet] 5-325 mg tablet 1 tab PO Q4H MDD 6 PRN (Reason: pain) 4 Days Qty: 20 0RF aspirin 81 mg capsule 81 mg PO BID MDD 2 30 Days Qty: 60 0RF No Action Zepbound 5 mg/0.5 mL pen injector 5 mg subcut SA Referrals / Follow Up: Adriano Granados MD [Med Staff - Active Staff] - Disposition Disposition (needs filled in before D/C Order can be placed): Home, Self Care 10/02/243<Electronically signed by Adriano Granados MD>Adriano Granados MD CC: No Primary Care Physician ~ Signed [facility] Work Phone: Evaluation note* Diagnosis Acute otitis media, bilateral- Primary Unspecified otitis media [facility]* Diagnosis Infected skin lesion- Primary Unspecified local infection of skin and subcutaneous tissue documented in this encounter [facility] note* Diagnosis Screening for hematuria or proteinuria [Z13.89]- Primary Screening for unspecified condition Balanitis Balanoposthitis documented [facility]* Diagnosis Balanitis- Primary Balanoposthitis documented in this encounter [facility] note* Diagnosis Microscopic hematuria [R31.29]- Primary Microscopic hematuria Gross hematuria documented in this encounter [facility] note* Diagnosis Microscopic hematuria- Primary Gross hematuria documented in this encounter [facility] note* Diagnosis Microscopic hematuria [R31.29] Microscopic hematuria documented in this encounter [facility] note* Diagnosis Balanitis- Primary Balanoposthitis documented in this encounter [facility] note* Diagnosis Microscopic hematuria- Primary documented in this encounter [facility] note* Diagnosis Balanitis- Primary Balanoposthitis documented in this encounter [facility] note* Diagnosis Balanitis Balanoposthitis documented in this encounter [facility] note* Diagnosis Balanitis Balanoposthitis documented in this encounter [facility] note* Diagnosis Infected skin lesion- Primary Unspecified local infection of skin and subcutaneous tissue documented in this encounter [facility] note* Diagnosis Acute pain of left knee- Primary documented in this encounter [facility] note* Diagnosis Acute pain of left knee documented in this encounter [facility] note* Diagnosis Rupture of anterior cruciate ligament of left knee, initial encounter- Primary Quadriceps tendon rupture, left, initial encounter Acute lateral meniscus tear of left knee, initial encounter documented [facility] encounter [facility]* Diagnosis Rupture of anterior cruciate ligament of left knee, initial encounter- Primary documented in this encounter [facility] note* Diagnosis Rupture of anterior cruciate ligament of left knee, initial encounter Quadriceps tendon rupture, left, initial encounter Acute lateral meniscus tear of left knee, initial encounter documented [facility] encounter [facility]* Diagnosis Rupture of anterior cruciate ligament of left knee, initial encounter- Primary Acute medial meniscus tear of left knee, initial encounter documented [facility]* Diagnosis S/P ACL reconstruction- Primary Other postprocedural status documented [facility]* Diagnosis Rupture of anterior cruciate ligament of left knee, initial encounter- Primary documented in this encounter [facility] (narrative)No reason for referral information availableWEast [facility] Work Phone: Reason for visit Narrative* Diagnostic Procedure Only (Routine) - Closed Specialty Diagnoses / Procedures Referred By Contac t Referred To Contact XR IMAGING Diagnoses Acute pain of left knee Procedures XR KNEE INJURY 4V AP/LAT/OBLS LEFT RADIOLOGIC EXAM KNEE COMPLETE 4/MORE VIEWS Batool Butler MD [address] [place] [address] Phone: tel: fax:[phone] [place] [id number] Referral ID Status Reason Start Date Expiration Date V isits Requested Visits Authorized [id number] Closed Auto-Generate d Referral 08/11/2024 09/10/2025 1 1 [facility] for visit Narrative* MRI/CT (Urgent) - Closed Specialty Diagnoses / Procedures Referred By Contac t Referred To Contact [facility] Diagnoses Rupture of anterior cruciate ligament of left knee, initial encounter Quadriceps tendon rupture, left, initial encounter Acute lateral meniscus tear of left knee, initial encounter Procedures MRI KNEE WO IVCON LEFT MRI ANY JT LOWER EXTREM W/O CONTRAST MATRSkye Zamorano, COMMERCIAL BAKING TEACHER.BOTTOMING ROOM SUPERVISOR [address] [place] [address] Phone: tel: fax: [facility] [address] [address] Phone: tel: fax: Referral ID Status Reason Start Date Expiration Date V isits Requested Visits Authorized [id number] Closed OON/Self Pay Override Patient Cleared - Admin/Chairm an/Director advise to proceed or did not respond 08/13/2024 05/07/2025 1 1 [facility] Summary Purpose Family History No Family History Records FoundNo Family History Records FoundNo Family History Records FoundNo Family History Records FoundNo Family History Records FoundNo Family History Records Found Advance Directives No Advanced Directives Records Found Advance Directive Response Recorded Date/ Time Do you have a Healthcare Power of Dump Truck Operator? No September 18, 2024 10:25am Reason for Referral Specialty Diagnoses / Procedures Referred By Vero t Referred To Contact CT IMAGING Diagnoses Microscopic hematuria Procedures CT UROGRAM WO/W IVCON CT ABD & PELVIS W/WO CONTRST 1+ BODY CHARY Elizalde, Jenn Artis MD [address] [address] [place] [id number] Referral ID Status Reason Start Date Expiration Date Visits Requested Visits Authorized [id number] Authorized Auto-Generated Referral OON/Self Pay Override OON Notification Letter 04/17/2005/10/2025 1 1 Chief Complaint and Reason for Visit Chief Complaint Admit Date RIGHT KNEE August 26, 2024 2:1 7pm Left knee arthroscopy, anterior cruciate ligament October 02, 2024 11:14am Left knee arthroscopy, anterior cruciate ligament October 02, 2024 12:37pm Reason for Visit Admit Date Effusion, left knee August 26, 2024 2:1 7pm Left ACL tear August 26, 2024 2:1 7pm Left knee pain August 26, 2024 2:1 7pm MCL sprain of left knee August 26, 2024 2:17pm Tear of medial meniscus of left knee Apr 2024 2:17pm Left ACL tear October 02, 2024 11:14 am Tear of lateral meniscus of left knee Ma y 2024 11:14am Tear of medial meniscus of left knee October 02, 2024 11:14am Chief Complaint Admit Date RIGHT KNEE August 26, 2024 2:1 7pm Left knee arthroscopy, anterior cruciate ligament October 02, 2024 11:14am PREOP October 02, 2024 11:55 am Left knee arthroscopy, anterior cruciate ligament October 02, 2024 12:37pm left knee October 15, 2024 12:5 9pm Reason for Visit Admit Date Effusion, left knee August 26, 2024 2:1 7pm Left ACL tear August 26, 2024 2:1 7pm Left knee pain August 26, 2024 2:1 7pm MCL sprain of left knee August 26, 2024 2:17pm Tear of medial meniscus of left knee Apr 2024 2:17pm Left ACL tear October 02, 2024 11:14 am Tear of lateral meniscus of left knee Ma y 2024 11:14am Tear of medial meniscus of left knee October 02, 2024 11:14am Left ACL tear October 15, 2024 12:5 9pm Left knee pain October 15, 2024 12:5 9pm MCL sprain of left knee October 15, 2024 12:59pm Tear of lateral meniscus of left knee Ju ne 2024 12:59pm Tear of medial meniscus of left knee Dwain e 2024 12:59pm Chief Complaint Admit Date RIGHT KNEE August 26, 2024 2:1 7pm Left knee arthroscopy, anterior cruciate ligament October 02, 2024 11:14am PREOP October 02, 2024 11:55 am Left knee arthroscopy, anterior cruciate ligament October 02, 2024 12:37pm left knee October 15, 2024 12:5 9pm LEFT KNEE November 12, 2024 12:48 pm Reason for Visit Admit Date Effusion, left knee August 26, 2024 2:1 7pm Left ACL tear August 26, 2024 2:1 7pm Left knee pain August 26, 2024 2:1 7pm MCL sprain of left knee August 26, 2024 2:17pm Tear of medial meniscus of left knee Apr 2024 2:17pm Left ACL tear October 02, 2024 11:14 am Tear of lateral meniscus of left knee Ma y 2024 11:14am Tear of medial meniscus of left knee October 02, 2024 11:14am Left ACL tear October 15, 2024 12:5 9pm Left knee pain October 15, 2024 12:5 9pm MCL sprain of left knee October 15, 2024 12:59pm Tear of lateral meniscus of left knee Ju ne 2024 12:59pm Tear of medial meniscus of left knee Dwain e 2024 12:59pm Left ACL tear November 12, 2024 12:48 pm MCL sprain of left knee November 12, 2024 1 2:48pm Tear of lateral meniscus of left knee Ju ly 2024 12:48pm Tear of medial meniscus of left knee Daniele y 2024 12:48pm Chief Complaint Admit Date RIGHT KNEE August 26, 2024 2:1 7pm Left knee arthroscopy, anterior cruciate ligament October 02, 2024 11:14am PREOP October 02, 2024 11:55 am Left knee arthroscopy, anterior cruciate ligament October 02, 2024 12:37pm left knee October 15, 2024 12:5 9pm LEFT KNEE November 12, 2024 12:48 pm LEFT KNEE December 23, 2024 9: 37am Room 3 December 23, 2024 9: 49am Reason for Visit Admit Date Effusion, left knee August 26, 2024 2:1 7pm Left ACL tear August 26, 2024 2:1 7pm Left knee pain August 26, 2024 2:1 7pm MCL sprain of left knee August 26, 2024 2:17pm Tear of medial meniscus of left knee Apr il 2024 2:17pm Left ACL tear October 02, 2024 11:14 am Tear of lateral meniscus of left knee Ma y 2024 11:14am Tear of medial meniscus of left knee October 02, 2024 11:14am Left ACL tear October 15, 2024 12:5 9pm Left knee pain October 15, 2024 12:5 9pm MCL sprain of left knee October 15, 2024 12:59pm Tear of lateral meniscus of left knee Ju ne 2024 12:59pm Tear of medial meniscus of left knee Dwain e 2024 12:59pm Left ACL tear November 12, 2024 12:48 pm MCL sprain of left knee November 12, 2024 1 2:48pm Tear of lateral meniscus of left knee Ju ly 2024 12:48pm Tear of medial meniscus of left knee Daniele y 2024 12:48pm Effusion, left knee December 23, 2024 9: 37am Left ACL tear December 23, 2024 9: 37am MCL sprain of left knee December 23 9:37am Tear of lateral meniscus of left knee Au wolf 2024 9:37am Tear of medial meniscus of left knee Aug ust 2024 9:37am Additional Source Comments (unrecognized sect ion and content) No Status Records FoundNo Status Records FoundNo Status Records FoundNo Status Records FoundNo Status Records FoundNo Status Records Found INFORMATION SOURCE (unrecogn ized section and content) DATE CREATED AUTHOR 10/27/2017 [facility] ([place]) DATE CREATED AUTHOR AUTHOR'S ORGANIZ ATION 02/19/2018 [facility] DATE CREATED AUTHOR AUTHOR'S ORGANIZ ATION 10/10/2018 [facility] DATE CREATED AUTHOR AUTHOR'S ORGANIZ ATION 05/20/2024 [facility] DATE CREATED AUTHOR AUTHOR'S ORGANIZ ATION 10/26/2024 [facility] DATE CREATED AUTHOR AUTHOR'S ORGANIZ ATION 01/05/2025 [facility] Source Comments (unrecognize d section and content) In the event this informatio n is protected by the Federal Confidentiality of Alcohol and Drug Abuse Patient Records regulations: The Federal rules restrict any use of the information to criminally investigate or prosecute any alcohol or drug abuse patient.[facility] Center[facility] the event this information is protected by the Federal Confidentiality of Alcohol and Drug Abuse Patient Records regulations: The Federal rules restrict any use of the information to criminally investigate or prosecute any alcohol or drug abuse patient.[facility] Center[facility] the event this information is protected by the Federal Confidentiality of Alcohol and Drug Abuse Patient Records regulations: The Federal rules restrict any use of the information to criminally investigate or prosecute any alcohol or drug abuse patient.[facility] Center[facility] the event this information is protected by the Federal Confidentiality of Alcohol and Drug Abuse Patient Records regulations: The Federal rules restrict any use of the information to criminally investigate or prosecute any alcohol or drug abuse patient.[facility] CenterIn the event this information is protected by the Federal Confidentiality of Alcohol and Drug Abuse Patient Records regulations: The Federal rules restrict any use of the information to criminally investigate or prosecute any alcohol or drug abuse patient.[facility] CenterIn the event this information is protected by the Federal Confidentiality of Alcohol and Drug Abuse Patient Records regulations: The Federal rules restrict any use of the information to criminally investigate or prosecute any alcohol or drug abuse patient.[facility] CenterIn the event this information is protected by the Federal Confidentiality of Alcohol and Drug Abuse Patient Records regulations: The Federal rules restrict any use of the information to criminally investigate or prosecute any alcohol or drug abuse patient.[facility] CenterIn the event this information is protected by the Federal Confidentiality of Alcohol and Drug Abuse Patient Records regulations: The Federal rules restrict any use of the information to criminally investigate or prosecute any alcohol or drug abuse patient.[facility] CenterIn the event this information is protected by the Federal Confidentiality of Alcohol and Drug Abuse Patient Records regulations: The Federal rules restrict any use of the information to criminally investigate or prosecute any alcohol or drug abuse patient.[facility] CenterIn the event this information is protected by the Federal Confidentiality of Alcohol and Drug Abuse Patient Records regulations: The Federal rules restrict any use of the information to criminally investigate or prosecute any alcohol or drug abuse patient.[facility] CenterIn the event this information is protected by the Federal Confidentiality of Alcohol and Drug Abuse Patient Records regulations: The Federal rules restrict any use of the information to criminally investigate or prosecute any alcohol or drug abuse patient.[facility] CenterIn the event this information is protected by the Federal Confidentiality of Alcohol and Drug Abuse Patient Records regulations: The Federal rules restrict any use of the information to criminally investigate or prosecute any alcohol or drug abuse patient.[facility] CenterIn the event this information is protected by the Federal Confidentiality of Alcohol and Drug Abuse Patient Records regulations: The Federal rules restrict any use of the information to criminally investigate or prosecute any alcohol or drug abuse patient.[facility] CenterIn the event this information is protected by the Federal Confidentiality of Alcohol and Drug Abuse Patient Records regulations: The Federal rules restrict any use of the information to criminally investigate or prosecute any alcohol or drug abuse patient.[facility] CenterIn the event this information is protected by the Federal Confidentiality of Alcohol and Drug Abuse Patient Records regulations: The Federal rules restrict any use of the information to criminally investigate or prosecute any alcohol or drug abuse patient.[facility] CenterIn the event this information is protected by the Federal Confidentiality of Alcohol and Drug Abuse Patient Records regulations: The Federal rules restrict any use of the information to criminally investigate or prosecute any alcohol or drug abuse patient.[facility] CenterIn the event this information is protected by the Federal Confidentiality of Alcohol and Drug Abuse Patient Records regulations: The Federal rules restrict any use of the information to criminally investigate or prosecute any alcohol or drug abuse patient.[facility] CenterIn the event this information is protected by the Federal Confidentiality of Alcohol and Drug Abuse Patient Records regulations: The Federal rules restrict any use of the information to criminally investigate or prosecute any alcohol or drug abuse patient.[facility] CenterIn the event this information is protected by the Federal Confidentiality of Alcohol and Drug Abuse Patient Records regulations: The Federal rules restrict any use of the information to criminally investigate or prosecute any alcohol or drug abuse patient.[facility] CenterIn the event this information is protected by the Federal Confidentiality of Alcohol and Drug Abuse Patient Records regulations: The Federal rules restrict any use of the information to criminally investigate or prosecute any alcohol or drug abuse patient.[facility] CenterIn the event this information is protected by the Federal Confidentiality of Alcohol and Drug Abuse Patient Records regulations: The Federal rules restrict any use of the information to criminally investigate or prosecute any alcohol or drug abuse patient.[facility] CenterIn the event this information is protected by the Federal Confidentiality of Alcohol and Drug Abuse Patient Records regulations: The Federal rules restrict any use of the information to criminally investigate or prosecute any alcohol or drug abuse patient.[facility] CenterIn the event this information is protected by the Federal Confidentiality of Alcohol and Drug Abuse Patient Records regulations: The Federal rules restrict any use of the information to criminally investigate or prosecute any alcohol or drug abuse patient.[facility] CenterIn the event this information is protected by the Federal Confidentiality of Alcohol and Drug Abuse Patient Records regulations: The Federal rules restrict any use of the information to criminally investigate or prosecute any alcohol or drug abuse patient.[facility] CenterIn the event this information is protected by the Federal Confidentiality of Alcohol and Drug Abuse Patient Records regulations: The Federal rules restrict any use of the information to criminally investigate or prosecute any alcohol or drug abuse patient.[facility] CenterIn the event this information is protected by the Federal Confidentiality of Alcohol and Drug Abuse Patient Records regulations: The Federal rules restrict any use of the information to criminally investigate or prosecute any alcohol or drug abuse patient.[facility] CenterIn the event this information is protected by the Federal Confidentiality of Alcohol and Drug Abuse Patient Records regulations: The Federal rules restrict any use of the information to criminally investigate or prosecute any alcohol or drug abuse patient.[facility] Reason for Visit (unrecogniz ed section and content) Reason Comments Follow Up Catheter came out Specialty Diagnoses / Procedures Referred By Vero alston Referred To Contact UROLOGY Diagnoses HEMATURIA Procedures EST PATIENT VISIT LEVEL 1 Jenn Elizalde MD [address] [facility] [place] [address] Urol [facility] [address] [employer] [address] [address] Referral ID Status Reason Start Date Expiration Date Visits Requested Visits Authorized [id number] New Request OON/Self Pay Override 04/09/2024 07/08/2024 10 10 Reason Comments both ears clogged Reason Comments Swelling in groin area States he noticed it 2 days ago. Reason Comments New Patient Groin Swelling Pimple behind head o f penis. He squeezed it and heard a pop but nothing came out and the next day discovered swelling. Specialty Diagnoses / Procedures Referred By Vero t Referred To Contact UROLOGY Diagnoses swelling in groin area Procedures NEW PATIENT VISIT LEVEL 1 Self Jenn Elizalde MD [address] [employer] [address] [address] Referral ID Status Reason Start Date Expiration Date Visits Requested Visits Authorized [id number] Outside PCP OON/Self Pay Override 02/08/2024 04/08/2024 5 5 Reason Comments Follow Up Swelling has gone do wn. Looks like a scab. States he thinks it's getting better. Reason Comments Hematuria Follow Up UTI Specialty Diagnoses / Procedures Referred By Contac t Referred To Contact UROLOGY Diagnoses HEMATURIA Procedures EST PATIENT VISIT LEVEL 1 Jenn Elizalde MD [address] [facility] [address] [place] [address] Urol [facility] [address] [facility] [address] [place] [address] Reason Comments Cystoscopy-1 Specialty Diagnoses / Procedures Referred By Contac t Referred To Contact CT IMAGING Diagnoses Microscopic hematuria Procedures CT UROGRAM WO/W IVCON CT ABD & PELVIS W/WO CONTRST 1+ BODY REGNS Jenn Elizalde MD [address] [facility] [address] [place] [address] [place] [id number] Referral ID Status Reason Start Date Expiration Date Visits Requested Visits Authorized [id number] Pending Review Patient Cleared - INN Insurance Found Patient Cleared - Admin/Chairma n/Director advise to proceed or did not respond 4 05/10/2025 1 1 Reason Comments Follow Up Reason Comments Appointment Needs post op/sánchez out in 10 days Reason Onset Date Comments Refill Request 05/17/2024 Reason Onset Date Comments Refill Request 05/19/2024 Duplicate for Ox ycodone Reason Onset Date Comments Refill Request 05/23/2024 Reason Comments Appointment LEFT PATIENT MESSAGE TO CALL AND R/S MISSED POST OP APPOINTMENT Reason Comments Other Pimple like sore - E ntered by patient Pain Patient stated that he has an area on corpus spongiosum. Reason Comments Fall Patient stated that he had a fall tonight and landed on left knee and LLE went sideways. Patient heard a pop Reason Comments Patient Question Unable to get in ort ho office Reason Comments New Reason Comments Orders Reason Comments Results Reason Comments Established Patient Specialty Diagnoses / Procedures Referred By Contac t Referred To Contact ORTHOPAEDIC SURGERY Diagnoses Left knee pain Procedures EST Skye Fernandez, COMMERCIAL BAKING TE[employer]ER.BOTTOMING ROOM SUPERVISOR [address] [place] [address] Phone: tel: fax: [facility] [address] [facility] [address] [place] [address] Phone: tel: fax: Referral ID Status Reason Start Date Expiration Date Visits Requested Visits Authorized [id number] New Request OON/Self Pay Override 08/13/2024 11/21/2025 1 1 Reason Comments PT Eval Specialty Diagnoses / Procedures Referred By Contac t Referred To Contact PHYSICAL THERAPY Diagnoses NEW PATIENT-Rupture of anterior cruciate ligament of left knee, initial encounter post op Procedures NEW PATIENT VISIT LEVEL 1 Adriano Granados MD [facility] [address] [address] Phone: tel: fax: Luda Dunbar, PT, DPT Referral ID Status Reason Start Date Expiration Date Visits Requested Visits Authorized [id number] Pending Review OON/Self Pay Override 10/23/2024 01/31/2026 1 1 Care Teams (unrecognized sec tion and content) Team Status: Active Member Role Status Dates No Primary Care Physician Primary Care Provider Active Team Status: Inactive Member Role Status Dates Adriano Granados MD Attending Provider Active St art: August 26, 2024 End: August 26, 2024 Team Status: Inactive Member Role Status Dates Adriano Granados MD Attending Provider Active St art: October 02, 2024 End: October 02, 2024 Adriano Granados MD Referring Provider Active St art: October 02, 2024 End: October 02, 2024 No Primary Care Physician Primary Care Provider Active Start: October 02, 2024 End: October 02, 2024 Team Status: Active Member Role Status Dates Adriano Granados MD Attending Provider Active St art: October 02, 2024 Adriano Granados MD Referring Provider Active St art: October 02, 2024 Adriano Granados MD Other Provider Active Start: October 02, 2024 No Primary Care Physician Primary Care Provider Active Start: October 02, 2024 Team Status: Active Member Role Status Dates No Primary Care Physician Primary Care Provider Active Start: October 02, 2024 End: October 02, 2024 Dr. Macho Schilling MD Attending Provider Active Start: October 02, 2024 End: October 02, 2024 Dr. Wiliam Marie MD Referring Provider Active Start: October 02, 2024 End: October 02, 2024 Team Status: Inactive Member Role Status Dates Adriano Granados MD Attending Provider Active St art: October 15, 2024 End: October 15, 2024 No Primary Care Physician Primary Care Provider Active Start: October 15, 2024 End: October 15, 2024 No Primary Care Physician Referring Provider Active Start: October 15, 2024 End: October 15, 2024 Team Status: Active Member Role/Relationship Status Dates No Primary Care Physician Primary Care Provider Active Team Status: Inactive Member Role/Relationship Status Dates Adriano Granados MD Attending Provider Active St art: August 26, 2024 End: August 26, 2024 Team Status: Inactive Member Role/Relationship Status Dates Adriano Granados MD Attending Provider Active St art: October 02, 2024 End: October 02, 2024 Adriano Granados MD Referring Provider Active St art: October 02, 2024 End: October 02, 2024 No Primary Care Physician Primary Care Provider Active Start: October 02, 2024 End: October 02, 2024 Team Status: Active Member Role/Relationship Status Dates No Primary Care Physician Primary Care Provider Active Start: October 02, 2024 End: October 02, 2024 Dr. Macho Schilling MD Attending Provider Active Start: October 02, 2024 End: October 02, 2024 Dr. Wiliam Marie MD Referring Provider Active Start: October 02, 2024 End: October 02, 2024 Team Status: Active Member Role/Relationship Status Dates Adriano Granados MD Attending Provider Active St art: October 02, 2024 Adriano Granados MD Referring Provider Active St art: October 02, 2024 Adriano Granados MD Other Provider Active Start: October 02, 2024 No Primary Care Physician Primary Care Provider Active Start: October 02, 2024 Team Status: Inactive Member Role/Relationship Status Dates Adriano Granados MD Attending Provider Active St art: October 15, 2024 End: October 15, 2024 No Primary Care Physician Primary Care Provider Active Start: October 15, 2024 End: October 15, 2024 No Primary Care Physician Referring Provider Active Start: October 15, 2024 End: October 15, 2024 Team Status: Inactive Member Role/Relationship Status Dates No Primary Care Physician Primary Care Provider Active Start: November 12, 2024 End: November 12, 2024 No Primary Care Physician Referring Provider Active Start: November 12, 2024 End: November 12, 2024 Adriano Granados MD Attending Provider Active St art: November 12, 2024 End: November 12, 2024 Team Status: Active Member Role/Relationship Status Dates No Primary Care Physician Primary Care Provider Active Start: December 23, 2024 No Primary Care Physician Referring Provider Active Start: December 23, 2024 Adriano Granados MD Attending Provider Active St art: December 23, 2024 Team Status: Inactive Member Role/Relationship Status Dates No Primary Care Physician Primary Care Provider Active Start: December 23, 2024 End: December 23, 2024 Dr. Toribio Herndon MD Attending Provider Active S tart: December 23, 2024 End: December 23, 2024 Team Status: Inactive Member Role/Relationship Status Dates No Primary Care Physician Primary Care Provider Active Start: December 23, 2024 End: December 23, 2024 No Primary Care Physician Referring Provider Active Start: December 23, 2024 End: December 23, 2024 Adriano Granados MD Attending Provider Active St art: December 23, 2024 End: December 23, 2024 FOR RECORDS PERTAINING TO PATIENTS WHO ARE OR HAVE BEEN ENROLLED IN A CHEMICAL DEPENDENCY/SUBSTANCEABUSE PROGRAM, SOME INFORMATION MAY BE OMITTED. This clinical summary was aggregated from multiple sources. Caution should be exercised in using it in the provision of clinical care. This summary normalizes information from multiple sources, and as a consequence, information in this document may materially change the coding, format and clinical context of patient data. In addition, data may be omitted in some cases. CLINICAL DECISIONS SHOULD BE BASED ON THE PRIMARY CLINICAL RECORDS. [employer] provides no warranty or guarantee of the accuracy or completeness of information in this document."
== END | disposition home or self-care (01) ==
LOC: OPMRI 15:11
PROVIDERS: Referring Provider Orthopaedic Surgery Sports Medicine; Visit Provider Orthopaedic Surgery Sports Medicine
DX: S83.512A Sprain of anterior cruciate ligament of left knee, initial encounter (principal); S83.242A Other tear of medial meniscus, current injury, left knee, initial encounter; M25.462 Effusion, left knee; S83.412A Sprain of medial collateral ligament of left knee, initial encounter; S83.282A Other tear of lateral meniscus, current injury, left knee, initial encounter
CPT/HCPCS: 73721